=== PATIENT | female | born 1940 | race Caucasian/White ===

== ENCOUNTER → 2020-10-15 08:35 | Outpatient (CLI) | payer MEDICARE, SELFPAY ==
--- NOTE | ~2020-10-15 | US_ITS ---
EXAMINATION: US right upper quadrant EXAM DATE: 10/15/2020 08:59 INDICATION: Right upper quadrant pain. TECHNIQUE: Multiple grayscale and Doppler images of the abdomen right upper quadrant were obtained (b y a technologist who performed the scan) and subsequently reviewed. Comparison is made to prior exami nation from 03/28/2014. Correlation was made with CT abdomen 02/08/2018. FINDINGS: There is echogenic focus, calcification in the body of the pancreas, probably calcification which is identified on CT scan dated 02/08/2018. This calcification is along the margin of small cystic space, m easuring about 1 cm. This is not likely clinically significant finding. The liver has normal echogeni city and contour. There are no focal liver lesions identified. There is no evidence of intrahepati c biliary duct dilation. Portal venous flow was seen in the hepatopedal, normal direction and has no rmal Doppler waveform. No right-sided hydronephrosis. Common bile duct measures 4 mm, which is normal. The gallbladder wall is normal in thickness, with ex pected amount of distention. No sonographic evidence of pericholecystic fluid. There is no cholelit hiases. Technologist performing exam reports patient did not demonstrate sonographic Donald's sign. Please note that this sign is less reliable in patients who have received pain medication. IMPRESSION: 1. Unremarkable abdominal ultrasound exam. Reviewed, dictated and finalized at location D. H HAND
== END ==
PROVIDERS: PCP Nurse Practitioner Family; Visit Provider Student in an Organized Health Care Education/Training Program
DX: R10.11 Right upper quadrant pain (principal)
CPT/HCPCS: 76705

== ENCOUNTER 2020-10-21 12:51 | Emergency (ER) | payer MEDICARE, SELFPAY ==
--- NOTE | ~2020-10-21 | CT_ITS ---
EXAMINATION: CT abdomen pelvis wo con DATE: 10/21/2020 14:41 INDICATION: Right upper quadrant abdominal pain. Right flank pain. TECHNIQUE: Computed tomography (CT) of the abdomen and pelvis was performed without intravenous contr ast. Automated exposure control and iterative reconstruction technique were employed. The dose-length product was 840.26 mGy-cm. COMPARISON: CT abdomen 10/11/2017, abdomen ultrasound 10/15/2020 FINDINGS: The visualized portions of the lung bases demonstrate mild atelectasis. No pleural effusion . There is left atrial enlargement of the heart. There are calcifications of the aortic valve. No per icardial effusion. There is a small sliding hiatal hernia. The liver and gallbladder are normal. Calc ifications in the spleen are consistent with old granulomatous disease. There is a calcification in t he pancreas, consistent with chronic pancreatitis. The adrenal glands and right kidney are normal. Th ere are cysts in the left kidney including a chronic multiloculated cystic mass measuring 5.3 cm with focal areas of chronic wall calcification, likely benign. There is diverticulosis of the colon witho ut evidence of diverticulitis. The appendix is normal. There are no pathologically enlarged lymph nod es. There is no free intraperitoneal fluid. There is a left inguinal hernia containing fat. There is mild thoracic spondylosis and moderate lumbar spondylosis. IMPRESSION: 1. Small sliding hiatal hernia. 2. Left inguinal hernia containing fat. Reviewed, dictated and finalized at location A. TESTER
[2020-10-21 12:54] VITALS: BP 200/84; PULSE 61; RESP 17; TEMP 36.4; O2SAT 100
--- NOTE | 2020-10-21 13:06 | ECG_ITS ---
Measurements Intervals [place] Rate: 59 P: -10 NE: 173 QRS: 39 QRSD: 87 T: 39 QT: 393 QTc: 391 Interpretive Statements SINUS BRADYCARDIA BASELINE ARTIFACT- III BORDERLINE ECG Electronically Signed On 10-21-2020 13:22:39 SPORTS THERAPIST by Ozzie Carter D.O.
[2020-10-21 13:33] LABS: Basophils Percent Auto 0.1 % (0.2-1.2); Eosinophils Absolute Auto 0.1 K/mm3 (0-0.3); Eosinophils Percent Auto 1.1 % (0-4.4); Hematocrit 35.1 % (37.0-47.0); Hemoglobin 11.6 g/dL (12.0-15.0); Immature Granulocyte Absolute 0.04 K/mm3 (0.00-0.031); Immature Granulocyte Percent A 0.5 % (0-0.5); Lymphocytes Absolute Auto 1.13 K/mm3 (0.9-3.2); Lymphocytes Percent Auto 14.2 % (18.3-44.2); Mean Corpuscular Hemoglobin 29.7 pg (26-34); Mean Corpuscular Volume 89.8 fl (80-100); Monocytes Absolute Auto 0.4 K/mm3 (0.1-0.6); Monocytes Percent Auto 5.2 % (2.6-8.5); Neutrophils Absolute Auto 6.3 K/mm3 (1.3-6.7); Neutrophils Percent Auto 78.9 % (45.5-73.1); Platelet Count Result 183 k/mm3 (150-375); Red Blood Count 3.91 M/mm3 (4.2-5.4); Red Cell Distribution Width 14.1 % (11.5-14.5); White Blood Count 7.9 K/mm3 (4.5-10.0)
[2020-10-21 13:46] LABS: Alanine Aminotransferase 29 U/L (4-35); Alkaline Phosphatase 113 U/L (38-126); Anion Gap 4 mmol/L (8-16); Aspartate Amino Transferase 26 U/L (14-36); Bilirubin,Total 0.5 mg/dL (0.2-1.3); Blood Urea Nitrogen 25 mg/dL (7-17); Calcium 9.3 mg/dL (8.4-10.2); Carbon Dioxide 30 mmol/L (22-30); Chloride 105 mmol/L (98-107); Estimated Glomerular Filt Rate 33; Glucose 172 mg/dL (65-105); Lipase 24 U/L (23-300); Potassium 4.7 mmol/L (3.4-5.0); Sodium 139 mmol/L (137-145)
[2020-10-21 13:57] LABS: Troponin I < 0.012 ng/mL (0.000-0.034)
--- NOTE | 2020-10-21 14:04 | PC.NURSE ---
patient unable to give urine sample at this time, will attempt again later.
[2020-10-21 14:14] VITALS: BP 206/131; PULSE 57; RESP 21; O2SAT 99
--- NOTE | 2020-10-21 14:15 | ED.ABDPAIN ---
HPI - Abdominal Pain General Chief Complaint: Back Pain/Injury Stated Complaint: flank pain for 2 weeks Time Seen by Provider: 10/21/20 14:06 Source: patient Mode of arrival: ambulatory Limitations: no limitations History of Present Illness HPI narrative: Patient is an 80-year-old female complaining of right upper quadrant pain radiating to her right flank, 5 out of 10, sharp, started approximately 2 weeks ago. Patient states that she has seen her primary care physician for it had an ultrasound done a week ago and states that she does not know the results yet. Patient denies any chest pain, shortness of breath, nausea, vomiting, diarrhea, fever or chills. Related Data Allergies Allergy/AdvReac Type Severity Reaction Status Date / Time No Known Allergies Allergy Unverified 05/23/16 08:37 Review of Systems Review of Systems: All systems reviewed & are unremarkable except as noted in HPI and below Constitutional: Constitutional: Denies body ache(s), Denies chills, Denies excessive sweating, Denies fatigue, Denies fever(s), Denies headache(s), Denies lethargy, Denies malaise, Denies weakness and Denies weight loss Eyes: Eyes: Denies blurry vision, Denies change in vision and Denies loss of vision ENT: Denies dizziness, Denies ear discharge, Denies headache(s), Denies lip swelling, Denies epistaxis, Denies nasal congestion, Denies neck pain, Denies throat swelling and Denies tongue swelling Cardiovascular: Cardiovascular: Denies chest pain, Denies chest pain at rest, Denies chest pain with activity, Denies diaphoresis, Denies rapid heart rate, Denies edema, Denies irregular heart rhythm, Denies lightheadedness, Denies palpitations, Denies dyspnea and Denies dyspnea on exertion Respiratory: Respiratory: Denies chest congestion, Denies cough, Denies hemoptysis, Denies dyspnea and Denies dyspnea on exertion Gastrointestinal: Gastrointestinal: Denies melena, Denies hematochezia, Denies diarrhea, Denies nausea, Denies vomiting and Denies hematemesis Musculoskeletal: Musculoskeletal: Denies abnormal gait, Denies deformity, Denies joint swelling, Denies limited range of motion, Denies neck pain and Denies numbness Neurologic: Denies Abnormal speech present, Denies abnormal gait, Denies confusion, Denies dizziness, Denies headache(s), Denies focal weakness, Denies loss of vision, Denies numbness, Denies Other visual disturbances, Denies Sensory deficit (Neuro) and Denies weakness Psychiatric: Psychiatric: Denies confusion, Denies depression, Denies auditory hallucinations, Denies homicidal ideation and Denies suicidal ideation Endocrine: Endocrine: Denies cold intolerance, Denies excessive sweating, Denies fatigue, Denies heat intolerance and Denies palpitations Hematologic/Lymphatic: Hematologic/Lymphatic: Denies easy bleeding and Denies easy bruising Allergic/Immunologic: Allergic/Immunologic: Denies lip swelling, Denies throat swelling and Denies tongue swelling PMFSH Family History Family History Father Malignant neoplasm of prostate Mother Family history of lung cancer Family history of chronic obstructive pulmonary disease Social History Social History Smoking status: Never smoker Alcohol intake: never Gender identity (if verbalized by the patient): Female Exam Const: General: cooperative, healthy appearing, comfortable, no acute distress, well developed, alert and awake; No confusion Orientation/consciousness: oriented to person, oriented to place, oriented to time, patient oriented x3 and No confusion Limitations: no limitations HENMT: Head: normal to inspection, normocephalic and atraumatic Ears: hearing grossly normal bilaterally, TM normal on the right and TM normal on the left General nose exam: Normal external nose present, Normal nares present and No nasal discharge present Face and sinus: normal faci
[2020-10-21] MEDS: hydrALAZINE HCL 20 MG/ML VIAL 10 MG IV PUSH (14:17)
[2020-10-21 15:02] VITALS: BP 164/45; PULSE 62; RESP 17; O2SAT 99
[2020-10-21 15:23] LABS: Add Urine Microscopic? YES; Appearance Urine Clear (Clear); Bacteria Urine Trace /hpf; Bilirubin Urine Negative (Negative); Blood Urine Negative (Negative); Color Urine Straw (Yellow); Glucose Urine UA Negative (Negative); Ketones Urine Negative (Negative); Leukocyte Esterase Ur Trace LEU/UL (Negative); Mucus Urine Rare /lpf; Nitrate Urine Negative (Negative); Protein Urine Negative (Negative); Squamous Epithelial Cell Urine Rare /hpf (Few); Urobilinogen Urine Negative mg/dL (<2.0); WBC Urine 0-3 /hpf
[2020-10-21 16:18] VITALS: BP 177/50; PULSE 59; RESP 18; O2SAT 100
== END 2020-10-21 17:28 | disposition home or self-care (01) ==
PROVIDERS: Emergency Medicine Emergency Medical Services; Emergency Provider Emergency Medicine; PCP Nurse Practitioner Family
DX: R10.11 Right upper quadrant pain (principal)
CPT/HCPCS: 36415; 74176; 80053; 81001; 83690; 84484; 85025; 93005; 96374; 99284; J0360

== ENCOUNTER 2020-10-23 10:39 | Emergency (ER) | payer MEDICARE, SELFPAY ==
--- NOTE | ~2020-10-23 | CT_ITS ---
EXAMINATION: CTA chest PE protocol DATE: 10/23/2020 12:57 INDICATION: Right sided chest pain TECHNIQUE: Computed tomography angiography (CTA) of the chest was performed with 100 mL Omnipaque-350 intravenous contrast timed to evaluate the pulmonary arteries. Coronal maximum intensity projection 3D-reconstructions were created by the technologist. Automated exposure control and iterative reconst ruction technique were employed. Exam dose: 353.39 mGy-cm total exam DLP. COMPARISON: 05/23/2015 PA and lateral chest FINDINGS: There is diagnostic contrast enhancement of the pulmonary arteries and no evidence of pulmo nary embolism. There is contrast material under mining a prominent atherosclerotic plaque in the left lateral aspect of the distal descending thoracic aorta. Cardiomegaly. No pericardial or pleural effusion. No hilar or mediastinal mass lesion or lymphadenopathy. There is right thyroid goiter. Left thyroid lobectomy. Bilateral apical scarring. No pulmonary infiltrate or consolidation. Mild bilateral lower lobe depend ent atelectasis. Small sliding hiatal hernia. Diverticulum of the posterior gastric fundus. Diverticulosis of the splenic flexure of the colon. No suspicious osteolytic or osteoblastic lesions are noted. 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 Reviewed, dictated and finalized at location A. ISTRY ACCOUNT MANAGER
[2020-10-23 10:58] VITALS: BP 189/68; PULSE 62; RESP 18; TEMP 36.3; O2SAT 100
[2020-10-23 12:01] LABS: Basophils Percent Auto 0.1 % (0.2-1.2); Eosinophils Absolute Auto 0.1 K/mm3 (0-0.3); Eosinophils Percent Auto 1.2 % (0-4.4); Hematocrit 33.5 % (37.0-47.0); Hemoglobin 11.2 g/dL (12.0-15.0); Immature Granulocyte Absolute 0.02 K/mm3 (0.00-0.031); Immature Granulocyte Percent A 0.3 % (0-0.5); Lymphocytes Absolute Auto 0.98 K/mm3 (0.9-3.2); Lymphocytes Percent Auto 12.9 % (18.3-44.2); Mean Corpuscular HGB Conc 33.4 g/dl (32-36); Mean Corpuscular Hemoglobin 29.6 pg (26-34); Mean Corpuscular Volume 88.6 fl (80-100); Mean Platelet Volume 10.9 fl (7.4-10.4); Monocytes Absolute Auto 0.6 K/mm3 (0.1-0.6); Monocytes Percent Auto 7.6 % (2.6-8.5); Neutrophils Absolute Auto 5.9 K/mm3 (1.3-6.7); Neutrophils Percent Auto 77.9 % (45.5-73.1); Platelet Count Result 187 k/mm3 (150-375); Red Cell Distribution Width 13.9 % (11.5-14.5); White Blood Count 7.6 K/mm3 (4.5-10.0)
[2020-10-23 12:14] LABS: Alanine Aminotransferase 24 U/L (4-35); Albumin Level 3.8 g/dL (3.5-5.1); Alkaline Phosphatase 107 U/L (38-126); Anion Gap 4 mmol/L (8-16); Aspartate Amino Transferase 32 U/L (14-36); Bilirubin,Total 0.5 mg/dL (0.2-1.3); Blood Urea Nitrogen 33 mg/dL (7-17); Calcium 9.3 mg/dL (8.4-10.2); Carbon Dioxide 29 mmol/L (22-30); Chloride 107 mmol/L (98-107); Estimated CRCL calculation 28 ml/min; Estimated Glomerular Filt Rate 36; Glucose 115 mg/dL (65-105); Potassium 4.8 mmol/L (3.4-5.0); Prothrombin Time 13.9 Seconds (11.1-14.7); Sodium 140 mmol/L (137-145)
[2020-10-23 12:15] LABS: Partial Thromboplastin Time 34.3 SECONDS (22.3-36.8)
[2020-10-23 12:25] LABS: Troponin I < 0.012 ng/mL (0.000-0.034)
--- NOTE | 2020-10-23 12:33 | ED.GENADULT ---
HPI - General Adult General Chief complaint: Unspecified Stated complaint: PAIN ALL OVER BODY X2WKS Time Seen by Provider: 10/23/20 11:26 Source: patient Mode of arrival: ambulatory Limitations: no limitations History of Present Illness HPI narrative: This patient is an 80 year old female with history of hypertension, hyperlipidemia who presents for evaluation right chest and right abdominal pain. She reports having intermittent right flank pain for 2 weeks. Her pain is located right upper chest and it radiates to right upper abdomen and right flank and right upper back. Her pain may be worse with moving arm. She reports pain with worse with inspiration. She was evaluated in ER 2 days ago for this pain. She had an abdominal ultrasound and a CT abdomen and pelvis. There were no remarkable findings to explain her pain. Related Data Home Medications Medication Instructions Recorded Confirmed atorvastatin 40 mg PO HS 10/23/20 carvedilol 10/23/20 hydrochlorothiazide 25 mg PO DAILY 10/23/20 losartan 100 mg PO DAILY 10/23/20 Allergies Allergy/AdvReac Type Severity Reaction Status Date / Time No Known Allergies Allergy Verified 10/23/20 11:02 Review of Systems Review of Systems: Narrative: CONSTITUTIONAL: Denies fever, chills, or sweats. EYES: Denies visual changes, redness, or discharge. ENT: Denies rhinorrhea, congestion, sore throat, or otalgia. CARDIOVASCULAR: Denies palpitations, or edema. RESPIRATORY: Denies cough or dyspnea. GASTROINTESTINAL: Denies abdominal pain, nausea, vomiting, or diarrhea. GENITOURINARY: Denies dysuria or hematuria. SKIN: Denies rash or itching. MUSCULOSKELETAL: Denies back pain, joint pain, or myalgia. NEUROLOGIC: Denies headache, numbness, or weakness. PSYCHIATRIC: Denies anxiety or depression. All systems reviewed & are unremarkable except as noted in HPI and below PMFSH Past Medical History Medical History (Updated 10/23/20 @ 15:13 by Venita High MD) Hypertension Surgical History Surgical History (Updated 10/23/20 @ 15:07 by Venita High MD) H/O thyroidectomy Family History Family History Father Malignant neoplasm of prostate Mother Family history of lung cancer Family history of chronic obstructive pulmonary disease Social History Social History Smoking status: Never smoker Alcohol intake: never Gender identity (if verbalized by the patient): Female Exam Narrative: Exam Narrative: GENERAL: Well-appearing, well-nourished, and in no acute distress. HEAD: Normocephalic, atraumatic EYES: PERRLA and EOMI, conjunctiva clear without discharge THROAT:Mucous membranes moist, Oropharynx normal without erythema, exudate, peritonsillar swelling or fluctuance NECK: Supple, without lymphadenopathy or mass RESPIRATORY: No respiratory distress, Airway patent, Respirations non-labored, Clear to auscultation without rales, rhonchi or wheeze HEART: Regular rate and rhythm. No murmur heard. Normal peripheral pulses. ABDOMEN: Soft, nontender, nondistended, normal active bowel sounds. No masses. No rebound or guarding, No organomegaly. EXTREMITIES: No edema, normal strength with full range of motion. SKIN: Warm, dry, normal color without rash NEURO: Alert and oriented x3. CN 2-12 grossly intact. No focal deficits. PSYCH: Normal mood and affect. Course Reevaluation(s) Reevaluation #1: I Discussed with patient CT findings. I reviewed her work up from 2 days ago. She had an unremarkable CT abdomen and pelvis and abdominal US. Her EKG was normal other than sinus bradycardia. Her troponin was negative. She was given medication for her BP. She is aware she will be transferred to [facility]. Date: 10/23/20 Time: 14:30 Consultations Consultation #1: I spoke with Dr. Liu, [facility], about patient CT findings of undermining plaque in
[2020-10-23 12:43] VITALS: BP 189/52; PULSE 58; RESP 16; TEMP 36.8; O2SAT 100
[2020-10-23] MEDS: LACTATED RINGERS 1,000 ML 999 ML IV CONT (13:05)
[2020-10-23] MEDS: hydrALAZINE HCL 20 MG/ML VIAL IV PUSH (13:35)
[2020-10-23 14:06] VITALS: BP 160/50; PULSE 77; RESP 18; O2SAT 100
[2020-10-23] MEDS: LABETALOL HCL INJ 100 MG/20 ML VIAL 10 MG IV PUSH (14:11)
--- NOTE | 2020-10-23 14:27 | ECG_ITS ---
Measurements Intervals [place] Rate: 65 P: 18 ID: 164 QRS: 37 QRSD: 92 T: 28 QT: 403 QTc: 422 Interpretive Statements SINUS RHYTHM BASELINE ARTIFACT- I, III, AVR, AVL, AVF, V1-V6 NORMAL ECG Electronically Signed On 10-23-2020 17:05:53 ESCAPE WHEEL TOOTH CUTTER by Ozzie Carter D.O.
[2020-10-23] MEDS: ONDANSETRON INJ 4 MG/2 ML VIAL IV PUSH (14:46)
[2020-10-23] MEDS: MORPHINE SULFATE (*CRX) 2 MG/ML INJ IV PUSH (14:46)
[2020-10-23 14:57] VITALS: PULSE 72
--- NOTE | 2020-10-23 15:11 | PC.NURSE ---
[facility] declined transfer to [facility] accepted transfer to [place] JANICE 1520 Trip # [id number]
[2020-10-23 15:39] VITALS: BP 152/52; PULSE 74; RESP 20; O2SAT 100
== END 2020-10-23 15:46 | disposition short-term general hospital (02) ==
PROVIDERS: Emergency Provider General Practice; PCP Nurse Practitioner Family
DX: I70.0 Atherosclerosis of aorta (principal); I10 Essential (primary) hypertension; R07.9 Chest pain, unspecified; E78.5 Hyperlipidemia, unspecified; E04.9 Nontoxic goiter, unspecified; E89.0 Postprocedural hypothyroidism; I51.7 Cardiomegaly
CPT/HCPCS: 36415; 71275; 80053; 84484; 85025; 85610; 85730; 93005; 96361; 96374; 96375; 99285; J0360; J2270; J2405; J7120; Q9967

== ENCOUNTER → 2020-12-17 00:56 | Outpatient (CLI) | payer MEDICARE, SELFPAY ==
[2020-12-17 19:49] LABS: SARS-CoV-2 RNA PCR Negative
== END ==
PROVIDERS: PCP Nurse Practitioner Family; Visit Provider Internal Medicine Gastroenterology
DX: Z01.812 Encounter for preprocedural laboratory examination (principal); Z20.822 Contact with and (suspected) exposure to COVID-19
CPT/HCPCS: C9803; U0003; U0005

== ENCOUNTER 2020-12-20 01:08 | Day surgery (SDC) | payer MEDICARE, SELFPAY ==
[2020-12-09 14:36] VITALS: BMI 38.7
[2020-12-20 06:43] VITALS: BP 168/61; PULSE 63; RESP 18; TEMP 36.3; O2SAT 100
[2020-12-20] MEDS: LACTATED RINGERS 1,000 ML 150 ML IV CONT (07:00)
--- NOTE | 2020-12-20 07:18 | PM.HPGS ---
History of Present Illness History of Present Illness Consent: Risks, benefits, and alternatives have been discussed and questions answered. Patient agrees to proceed with procedure. Chief complaint: hx of colon polyps, neoplasm screening Narrative: Linda Vanegas is a 80 year old female referred for colon cancer screening. She has a history of polyps Review of Systems Review of Systems: All systems reviewed & are unremarkable except as noted in HPI and below PMFSH Past Medical History Medical History (Updated 12/20/20 @ 07:19 by Jossue Rodriguez MD) Hypertension Surgical History Surgical History H/O thyroidectomy Family History Family History Father Malignant neoplasm of prostate Mother Family history of lung cancer Family history of chronic obstructive pulmonary disease Social History Social History Smoking status: Never smoker Alcohol intake: never Living arrangements: alone Gender identity (if verbalized by the patient): Female Spiritual care concerns: No Meds Home Medications and Allergies Home Medications Medication Instructions Recorded Confirmed Type atorvastatin 40 mg PO HS 10/23/20 12/09/20 History carvedilol 12.5 mg PO BID 10/23/20 12/09/20 History losartan 100 mg PO DAILY 10/23/20 12/09/20 History spironolactone 25 mg PO DAILY 12/09/20 12/09/20 History Allergies Allergy/AdvReac Type Severity Reaction Status Date / Time No Known Allergies Allergy Verified 12/20/20 06:42 Vital Signs Vital Signs - 24 hr 12/20/20 06:43 Temperature 36.3 C L Pulse Rate 63 Respiratory Rate 18 Blood Pressure 168/61 H Pulse Oximetry 100 Exam Resp: Auscultation: clear to auscultation bilaterally Cardio: Rate: regular rate Rhythm: regular rhythm GI: GI Palp: Yes Soft to palpation and No Tenderness to palpation present (GI) Assessment and Plan Assessment and plan (1) Personal history of colonic polyps: Code(s): Z86.010 - Personal history of colonic polyps Status: Acute Assessment and Plan: Colonoscopy with possible biopsy or polypectomy or cautery or injection of substances.
--- NOTE | 2020-12-20 07:48 | WPDANESEPPF ---
Anes - Initial Pre Proc Eval Procedure: Operation Date: 12/20/20 08:00 Proposed Procedures p Screening Colonoscopy - Jossue Rodriguez MD Date/Time: 12/20/20 07:48 Surgeon: Jossue Rodriguez MD Pre Op Diagnosis: hx of colon polyps, neoplasm screening Patient Data Age: 80 Gender: F Height: 5 ft Weight: 89.2 kg Last Vital Signs Temp 97.4 F L 12/20/20 06:43 Pulse 63 12/20/20 06:43 Resp 18 12/20/20 06:43 BP 168/61 H 12/20/20 06:43 Pulse Ox 100 12/20/20 06:43 Allergies Allergy/AdvReac Type Severity Reaction Status Date / Time No Known Allergies Allergy Verified 12/20/20 06:42 Home Medications Medication Instructions Recorded Confirmed Type atorvastatin 40 mg PO HS 10/23/20 12/09/20 History carvedilol 12.5 mg PO BID 10/23/20 12/09/20 History losartan 100 mg PO DAILY 10/23/20 12/09/20 History spironolactone 25 mg PO DAILY 12/09/20 12/09/20 History Patient hx anesthesia problems: none Family hx anesthesia problems: none PMFSH Past Medical History Medical History (Updated 12/20/20 @ 07:41 by Girish Hawkins MD) Anxiety Atrial fibrillation Chronic kidney disease (CKD) stage G1/A2, glomerular filtration rate (GFR) equal to or greater than 90 mL/min/1.73 square meter and albuminuria creatinine ratio between 30-299 mg/g Hyperlipidemia Hypertension SAUMYA (obstructive sleep apnea) Surgical History Surgical History H/O thyroidectomy Family History Family History Father Malignant neoplasm of prostate Mother Family history of lung cancer Family history of chronic obstructive pulmonary disease Social History Social History Smoking status: Never smoker Alcohol intake: never Living arrangements: alone Gender identity (if verbalized by the patient): Female Spiritual care concerns: No Anes - Eval Final PreProcedure Day of Procedure 12/20/20 07:48 Patient weight: obese Heart: regular rate and rhythm Lungs: clear to auscultation Airway: Mallampati scale class II Neurological: alert and oriented Last oral intake: >/= 8 hours ASA classification: III Emergent: no Anesthetic plan: proceed Anesthesia type and monitoring: general GIVS and standard monitoring Informed Consent: The patient's anesthetic plan and its attendant risks and benefits were discussed with the patient/family/POA. Questions were solicited and answers provided to the satisfaction of the patient/family/POA.
[2020-12-20 08:23] VITALS: BP 105/56; PULSE 60; RESP 18; O2SAT 92
[2020-12-20 08:33] VITALS: BP 120/49; PULSE 60; RESP 18; O2SAT 97
[2020-12-20 08:42] VITALS: BP 139/58; PULSE 54; RESP 18; O2SAT 97
== END 2020-12-20 08:52 | disposition home or self-care (01) ==
PROVIDERS: PCP Emergency Medicine; Visit Provider Internal Medicine Gastroenterology
PROC: 0DJD8ZZ Inspection of Lower Intestinal Tract, Via Natural or Artificial Opening Endoscopic (ICD-10-PCS; CPT 45378; principal; 2020-12-20 08:00)
DX: Z12.11 Encounter for screening for malignant neoplasm of colon (principal); D12.3 Benign neoplasm of transverse colon; K57.30 Diverticulosis of large intestine without perforation or abscess without bleeding; Z86.010 Personal history of colon polyps; F41.9 Anxiety disorder, unspecified; I48.91 Unspecified atrial fibrillation; I12.9 Hypertensive chronic kidney disease with stage 1 through stage 4 chronic kidney disease, or unspecified chronic kidney disease; N18.1 Chronic kidney disease, stage 1; E78.5 Hyperlipidemia, unspecified; G47.33 Obstructive sleep apnea (adult) (pediatric); E66.9 Obesity, unspecified; Z68.38 Body mass index [BMI] 38.0-38.9, adult
CPT/HCPCS: 45385; 88305; C9803; J2704; J7120; U0003; U0005

== ENCOUNTER 2021-05-18 16:30 | Emergency (ER) | payer MEDICARE, SELFPAY ==
[2021-05-18] VITALS (7 sets, daily range): BP systolic 149–220; BP diastolic 46–83; PULSE 57–66; RESP 18–21; TEMP 36.6–36.8; O2SAT 97–100
[2021-05-18] MEDS: cloNIDine HCL 0.1 MG TABLET PO (20:44)
[2021-05-18 21:04] LABS: Basophils Percent Auto 0.2 % (0.2-1.2); Eosinophils Absolute Auto 0.5 K/mm3 (0-0.3); Eosinophils Percent Auto 4.2 % (0-4.4); Hematocrit 34.6 % (37.0-47.0); Hemoglobin 11.2 g/dL (12.0-15.0); Immature Granulocyte Absolute 0.04 K/mm3 (0.00-0.031); Immature Granulocyte Percent A 0.4 % (0-0.5); Lymphocytes Absolute Auto 1.92 K/mm3 (0.9-3.2); Mean Corpuscular HGB Conc 32.4 g/dl (32-36); Mean Corpuscular Hemoglobin 29.7 pg (26-34); Mean Corpuscular Volume 91.8 fl (80-100); Mean Platelet Volume 11.3 fl (7.4-10.4); Monocytes Absolute Auto 0.8 K/mm3 (0.1-0.6); Monocytes Percent Auto 7.5 % (2.6-8.5); Neutrophils Absolute Auto 7.4 K/mm3 (1.3-6.7); Neutrophils Percent Auto 69.7 % (45.5-73.1); Platelet Count Result 152 k/mm3 (150-375); Red Blood Count 3.77 M/mm3 (4.2-5.4); Red Cell Distribution Width 13.3 % (11.5-14.5); White Blood Count 10.7 K/mm3 (4.5-10.0)
[2021-05-18 21:14] LABS: Anion Gap 7 mmol/L (8-16); Blood Urea Nitrogen 29 mg/dL (7-17); Calcium 9.7 mg/dL (8.4-10.2); Carbon Dioxide 25 mmol/L (22-30); Chloride 106 mmol/L (98-107); Estimated CRCL calculation 30 ml/min; Estimated Glomerular Filt Rate 39; Glucose 119 mg/dL (65-110); Potassium 4.9 mmol/L (3.4-5.0); Sodium 138 mmol/L (137-145)
--- NOTE | 2021-05-18 21:41 | ED.GENADULT ---
HPI - General Adult General Chief complaint: Recheck/Abnormal Lab/Rx Stated complaint: Elevated BP Time Seen by Provider: 05/18/21 19:59 Source: patient Mode of arrival: ambulatory Limitations: no limitations History of Present Illness HPI narrative: 80-year-old with a history of hypertension, CKD here with complaints of elevated blood pressure since this afternoon. Patient states that she was feeling fine all day had a call from her primary doctor about her renal function. She was told her renal function got worse from 3 4 and soon after she checked her blood pressure and was found to be high. She states that she has been taking new medication as prescribed. She mentions that she went to urgent care where they did a EKG and was given aspirin and was later sent here to the ER for evaluation. Patient presently denies any headache, chest pain or visual problems. Related Data Home Medications Medication Instructions Recorded Confirmed atorvastatin 40 mg PO HS 10/23/20 12/09/20 carvedilol 12.5 mg PO BID 10/23/20 12/09/20 losartan 100 mg PO DAILY 10/23/20 12/09/20 spironolactone 25 mg PO DAILY 12/09/20 12/09/20 Allergies Allergy/AdvReac Type Severity Reaction Status Date / Time No Known Allergies Allergy Verified 05/18/21 20:03 Review of Systems Review of Systems: All systems reviewed & are unremarkable except as noted in HPI and below Constitutional: Constitutional: Reports no additional constitutional complaints Eyes: Eyes: Reports no additional eye complaints ENT: Reports system reviewed and no additional complaints, except as documented Cardiovascular: Cardiovascular: Reports as per HPI Respiratory: Respiratory: Reports no additional respiratory complaints Gastrointestinal: Gastrointestinal: Reports no additional gastrointestinal complaints Musculoskeletal: Musculoskeletal: Reports no additional musculoskeletal complaints Integumentary/Breasts: Skin/Breast: Reports system reviewed and no additional complaints, except as docu Neurologic: Reports system reviewed and no additional complaints, except as documented Psychiatric: Psychiatric: Reports no additional psychiatric complaints PMFSH Past Medical History Medical History Anxiety Atrial fibrillation Chronic kidney disease (CKD) stage G1/A2, glomerular filtration rate (GFR) equal to or greater than 90 mL/min/1.73 square meter and albuminuria creatinine ratio between 30-299 mg/g Hyperlipidemia Hypertension SAUMYA (obstructive sleep apnea) Surgical History Surgical History H/O thyroidectomy Family History Family History Father Malignant neoplasm of prostate Mother Family history of lung cancer Family history of chronic obstructive pulmonary disease Social History Social History Smoking status: Never smoker Alcohol intake: never Gender identity (if verbalized by the patient): Female Spiritual care concerns: No Exam Narrative: GENERAL: Well-appearing, well-nourished, and in no acute distress. HEAD: Normocephalic, atraumatic. EYES: PERRLA and EOMI. NECK: Supple. CHEST: Clear to auscultation. No respiratory distress. HEART: Regular rate and rhythm. No murmur heard. Normal peripheral pulses. ABDOMEN: Soft, nontender, nondistended, normal active bowel sounds. EXTREMITIES: Normal range of motion. No edema. SKIN: Warm, dry, no rash. NEURO: No focal deficits. Alert and oriented x3. PSYCH: Normal mood and affect. Course Course Emergency Course: Patient blood pressure was 164/46, after repeated evaluation had systolic was ranging between 160s to 180s. I have given 0.1 mg of clonidine which were brought down to 153/47. I have discussed her lab work with the patient. Advised her to continue home medication. Follow-up with her prim
== END 2021-05-18 22:17 | disposition home or self-care (01) ==
PROVIDERS: Emergency Provider Family Medicine; PCP Nurse Practitioner Family
DX: I12.9 Hypertensive chronic kidney disease with stage 1 through stage 4 chronic kidney disease, or unspecified chronic kidney disease (principal); N18.1 Chronic kidney disease, stage 1; I48.91 Unspecified atrial fibrillation; E78.5 Hyperlipidemia, unspecified; G47.33 Obstructive sleep apnea (adult) (pediatric); E89.0 Postprocedural hypothyroidism
CPT/HCPCS: 36415; 80048; 85025; 99283; A9270

== ENCOUNTER 2021-06-21 07:05 | Emergency (ER) | payer MEDICARE, SELFPAY ==
[2021-06-21] VITALS (21 sets, daily range): BP systolic 154–180; BP diastolic 51–122; PULSE 53–113; RESP 12–20; TEMP 36.9; O2SAT 20–99
--- NOTE | ~2021-06-21 | XR_ITS ---
EXAMINATION: XR chest 2V EXAM DATE: 06/21/2021 07:40 INDICATION: Palpitations, weakness. TECHNIQUE: Frontal and lateral projections of the chest obtained and reviewed. Comparison is made to prior examination from 05/23/2016. FINDINGS: Some prominent central pulmonary arteries, possible pulmonary arterial hypertension. Mild h yperinflation. The cardiomediastinal silhouette is prominent but magnified on this AP technique. No c onfluent consolidation, pneumothorax or pleural effusion suspected. There is an old left humeral neck fracture. There is no pneumothorax suspected. IMPRESSION: Cardiomegaly, possible pulmonary arterial hypertension. Reviewed, dictated and finalized at location A.
--- NOTE | 2021-06-21 07:25 | ECG_ITS ---
Measurements Intervals [place] Rate: 56 P: -11 MI: 161 QRS: 0 QRSD: 92 T: 39 QT: 420 QTc: 408 Interpretive Statements SINUS BRADYCARDIA BASELINE ARTIFACT- I, II, III, AVR, AVL, AVF, V1-V6 BORDERLINE ECG Electronically Signed On 06-21-2021 8:52:10 CDT by Ozzie Carter D.O.
[2021-06-21] MEDS: LOSARTAN POTASSIUM 100 MG TABLET PO (07:54)
[2021-06-21] MEDS: carvediloL 12.5 MG TABLET PO (07:54)
[2021-06-21 07:58] LABS: Basophils Percent Auto 0.3 % (0.2-1.2); Eosinophils Absolute Auto 0.2 K/mm3 (0-0.3); Eosinophils Percent Auto 3.4 % (0-4.4); Hematocrit 33.8 % (37.0-47.0); Hemoglobin 11.4 g/dL (12.0-15.0); Immature Granulocyte Absolute 0.02 K/mm3 (0.00-0.031); Immature Granulocyte Percent A 0.3 % (0-0.5); Lymphocytes Absolute Auto 1.16 K/mm3 (0.9-3.2); Lymphocytes Percent Auto 16.5 % (18.3-44.2); Mean Corpuscular HGB Conc 33.7 g/dl (32-36); Mean Corpuscular Hemoglobin 29.8 pg (26-34); Mean Corpuscular Volume 88.5 fl (80-100); Mean Platelet Volume 11.2 fl (7.4-10.4); Monocytes Absolute Auto 0.5 K/mm3 (0.1-0.6); Monocytes Percent Auto 7.4 % (2.6-8.5); Neutrophils Absolute Auto 5.1 K/mm3 (1.3-6.7); Neutrophils Percent Auto 72.1 % (45.5-73.1); Platelet Count Result 155 k/mm3 (150-375); Red Blood Count 3.82 M/mm3 (4.2-5.4); Red Cell Distribution Width 13.4 % (11.5-14.5)
--- NOTE | 2021-06-21 08:02 | ED.ARRPALP ---
HPI - Arrhythmia/Palpitations General Chief Complaint: Arrhythmia/Palpitations Stated Complaint: palpitations, htn Time Seen by Provider: 06/21/21 07:09 Source: patient, RN notes reviewed and old records reviewed Mode of arrival: EMS Limitations: no limitations History of Present Illness HPI narrative: This is an 80 year old female with history of anxiety, atrial fibrillation, hypertension and chronic renal disease who presents for evaluation palpitations. Around 7 pm last night, she developed palpitations that she describes as flip flopping around my heart . She reports she had difficulty sleeping but she finally fell asleep around 2 am this morning. When she woke up this morning, she continued to have the palpitations. She denies associated chest pain, sob, nausea, vomiting or dizziness. She also noticed that her blood pressure was high this morning so her daughter called 911. Patient has not taken any of her medications this morning which includes her blood pressure medication. She denies taking any anticoagulation for her history of afib. 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 Related Data Home Medications Medication Instructions Recorded Confirmed atorvastatin 40 mg PO HS 10/23/20 12/09/20 carvedilol 12.5 mg PO BID 10/23/20 12/09/20 losartan 100 mg PO DAILY 10/23/20 12/09/20 spironolactone 25 mg PO DAILY 12/09/20 12/09/20 Allergies Allergy/AdvReac Type Severity Reaction Status Date / Time No Known Allergies Allergy Verified 05/18/21 20:03 Review of Systems Review of Systems: All systems reviewed & are unremarkable except as noted in HPI and below PMFSH Past Medical History Medical History Anxiety Atrial fibrillation Chronic kidney disease (CKD) stage G1/A2, glomerular filtration rate (GFR) equal to or greater than 90 mL/min/1.73 square meter and albuminuria creatinine ratio between 30-299 mg/g Hyperlipidemia Hypertension SAUMYA (obstructive sleep apnea) Surgical History Surgical History H/O thyroidectomy Family History Family History Father Malignant neoplasm of prostate Mother Family history of lung cancer Family history of chronic obstructive pulmonary disease Social History Social History Smoking status: Never smoker Alcohol intake: never Gender identity (if verbalized by the patient): Female Spiritual care concerns: No Exam Const: General: no acute distress and alert Orientation/consciousness: patient oriented x3 Eyes: Pupils: Equal, round and reactive pupils present EOM: EOMs intact bilaterally Chest: Chest palpation & inspection: normal inspection of the chest Resp: Effort & Inspection: normal respiratory effort and no retractions Auscultation: clear to auscultation bilaterally Cardio: Rate: regular rate Rhythm: abnormal rhythm Heart sounds: no murmurs GI: GI Palp: Yes Soft to palpation, No Tenderness to palpation present (GI) and No Guarding due to palpation present (GI) Auscultation: normal bowel sounds Skin: General skin exam: normal color Rashes: no rashes Neuro: General: patient oriented x3, moves all extremities and CN's II-XI intact bilaterally Gait exam (Neuro): Normal gait present Extrem: General: normal to inspection and no pedal edema Psych: Mental Status: mental status grossly normal Affect: normal affect Course Reevaluation(s) Reevaluation #1: Patient states she feels better. She has HR 52 in sinus rhythm. I discussed recommendations for chronic anticoagulation and potential side effects of bleeding. She has not bleeding or history of bleeding. She is agreeable to start eliquis as I have discussed with cardiology. Date: 06/21/21 Time: 09:37 Consultations Consultation #1: I discussed case with Dr. Pulido of
[2021-06-21 08:10] LABS: INR 0.9; Prothrombin Time 12.4 Seconds (11.1-14.7)
[2021-06-21 08:11] LABS: Partial Thromboplastin Time 30.7 SECONDS (22.3-36.8)
[2021-06-21 08:12] LABS: Alanine Aminotransferase 51 U/L (4-35); Albumin Level 4.2 g/dL (3.5-5.1); Alkaline Phosphatase 137 U/L (38-126); Anion Gap 5 mmol/L (8-16); Aspartate Amino Transferase 38 U/L (14-36); Bilirubin,Total 0.4 mg/dL (0.2-1.3); Blood Urea Nitrogen 23 mg/dL (7-17); Carbon Dioxide 29 mmol/L (22-30); Chloride 107 mmol/L (98-107); Estimated CRCL calculation 34 ml/min; Estimated Glomerular Filt Rate 43; Glucose 118 mg/dL (65-110); Magnesium 2.1 mg/dL (1.6-2.3); Potassium 4.3 mmol/L (3.4-5.0); Sodium 141 mmol/L (137-145)
--- NOTE | 2021-06-21 08:23 | ECG_ITS ---
Measurements Intervals [place] Rate: 100 P: NC: 0 QRS: 4 QRSD: 92 T: 46 QT: 344 QTc: 445 Interpretive Statements ATRIAL FIBRILLATION WITH RAPID VENTRICULAR RESPONSE BASELINE ARTIFACT- I, II, III, AVR, AVL, AVF, V1, V3-V6 ABNORMAL ECG Electronically Signed On 06-21-2021 8:51:48 CDT by Ozzie Carter D.O.
[2021-06-21 08:24] LABS: Troponin I 0.032 ng/mL (0.000-0.034)
[2021-06-21 08:29] LABS: Add Urine Microscopic? YES; Appearance Urine Clear (Clear); Bilirubin Urine Negative (Negative); Blood Urine 2+ (Negative); Color Urine Straw (Yellow); Glucose Urine UA Negative (Negative); Ketones Urine Negative (Negative); Leukocyte Esterase Ur Negative LEU/UL (Negative); Mucus Urine Rare /lpf; Nitrate Urine Negative (Negative); Protein Urine Negative (Negative); Specific Grav Ur 1.006 (1.001-1.035); Squamous Epithelial Cell Urine Rare /hpf (Few); Urobilinogen Urine Negative mg/dL (<2.0); WBC Urine 0-3 /hpf
[2021-06-21 11:06] LABS: Free T4 Free Thyroxine Reflex 1.26 ng/dL (0.78-2.19)
[2021-06-21 12:00] LABS: Total Triiodothyronine (T3) 1.63 NG/ML (0.97-1.69)
== END 2021-06-21 10:01 | disposition home or self-care (01) ==
PROVIDERS: Emergency Provider General Practice; PCP Nurse Practitioner Family
DX: I48.91 Unspecified atrial fibrillation (principal); F41.9 Anxiety disorder, unspecified; R00.2 Palpitations; I12.9 Hypertensive chronic kidney disease with stage 1 through stage 4 chronic kidney disease, or unspecified chronic kidney disease; N18.1 Chronic kidney disease, stage 1; G47.30 Sleep apnea, unspecified
CPT/HCPCS: 36415; 71046; 80053; 81001; 83735; 84439; 84443; 84480; 84484; 85025; 85610; 85730; 93005; 99284; A9270

== ENCOUNTER 2021-07-01 14:58 | Emergency (ER) | payer MEDICARE, SELFPAY ==
--- NOTE | 2021-07-01 15:10 | PC.NURSE ---
in br to obtain ua
[2021-07-01 15:20] VITALS: BP 189/59; PULSE 59; RESP 18; TEMP 36.6; O2SAT 100
--- NOTE | 2021-07-01 16:41 | ED.GENADULT ---
HPI - General Adult General Chief complaint: Urogenital-Female Stated complaint: UTI Time Seen by Provider: 07/01/21 16:13 Source: patient Mode of arrival: ambulatory Limitations: no limitations History of Present Illness HPI narrative: 80 y/o female. PMHx HTN, HLD, A-Fib. Presents to [facility] this evening with acute complaints of urinary frequency, 'bladder pressure', and dysuria for the past 72 hours. Pt reports a concern for UTI, noting that she has had urinary tract infections historically, and her manifestations are similar. No fever, chills. No abdominal pain, flank pain, hematuria. No pelvic pain or vaginal discharge. She denies N/V. Pt is not a diabetic. She has not yet sought out medical evaluation until now, today. Client is without additional acute c/o illness upon PE. Related Data Home Medications Medication Instructions Recorded Confirmed atorvastatin 40 mg PO HS 10/23/20 12/09/20 carvedilol 12.5 mg PO BID 10/23/20 12/09/20 losartan 100 mg PO DAILY 10/23/20 12/09/20 spironolactone 25 mg PO DAILY 12/09/20 12/09/20 clonidine HCl BID 07/01/21 hydrochlorothiazide 07/01/21 Allergies Allergy/AdvReac Type Severity Reaction Status Date / Time No Known Allergies Allergy Verified 05/18/21 20:03 Review of Systems Review of Systems: CONSTITUTIONAL: Denies fever, chills, sweats. EYES: Denies visual changes, redness, discharge. ENT: Denies rhinorrhea, congestion, sore throat, otalgia. CARDIOVASCULAR: Denies chest pain, palpitations, edema. RESPIRATORY: Denies dyspnea, wheezing, cough GASTROINTESTINAL: Denies abdominal pain, nausea, vomiting, diarrhea. GENITOURINARY: Positive urinary frequency, dysuria. No hematuria, abnormal discharge SKIN: Denies rash or itching. MUSCULOSKELETAL: Denies acute back pain, joint pain, or myalgia. NEUROLOGIC: Denies numbness, or focal weakness. PSYCHIATRIC: Denies anxiety or depression. All systems reviewed & are unremarkable except as noted in HPI and below PMFSH Past Medical History Medical History Anxiety Atrial fibrillation Chronic kidney disease (CKD) stage G1/A2, glomerular filtration rate (GFR) equal to or greater than 90 mL/min/1.73 square meter and albuminuria creatinine ratio between 30-299 mg/g Hyperlipidemia Hypertension SAUMYA (obstructive sleep apnea) Surgical History Surgical History H/O thyroidectomy Family History Family History Father Malignant neoplasm of prostate Mother Family history of lung cancer Family history of chronic obstructive pulmonary disease Social History Social History Smoking status: Never smoker Alcohol intake: never Gender identity (if verbalized by the patient): Female Spiritual care concerns: No Exam Narrative: GENERAL: This is a well-nourished, well-developed adult, in no apparent distress. HEAD: normocephalic, atraumatic. EYES: PERRL. Sclera clear/white. EARS: External ears normal. NOSE: External nose normal. THROAT: Mucous membranes moist. NECK: Neck supple, non-tender without lymphadenopathy, masses or thyromegaly. CARDIOVASCULAR: Regular rate and rhythm without murmurs, gallops, or rubs. RESPIRATORY: Clear to auscultation. Breath sounds equal bilaterally. No wheezes, rales, or rhonchi. GASTROINTESTINAL: Abdomen soft, non-tender, nondistended. Bowel sounds are active. No guarding. No CVA tenderness. SKIN: warm, intact. NEURO: Alert, active, and age appropriate. No focal neurologic deficits. Course Course Emergency Course: -Urine Dipstick to be completed. Vital Signs Vital signs: Vital Signs Temperature 36.6 C 07/01/21 15:20 Pulse Rate 59 L 07/01/21 15:20 Respiratory Rate 18 07/01/21 15:20 Blood Pressure 189/59 H 07/01/21 15:20 Pulse Oxime
== END 2021-07-01 16:36 | disposition home or self-care (01) ==
PROVIDERS: Emergency Provider Nurse Practitioner Adult Health; PCP Nurse Practitioner Family
DX: N39.0 Urinary tract infection, site not specified (principal); I12.9 Hypertensive chronic kidney disease with stage 1 through stage 4 chronic kidney disease, or unspecified chronic kidney disease; N18.30 Chronic kidney disease, stage 3 unspecified; I48.91 Unspecified atrial fibrillation; E78.5 Hyperlipidemia, unspecified; G47.33 Obstructive sleep apnea (adult) (pediatric); E89.0 Postprocedural hypothyroidism
CPT/HCPCS: 81003; 87077; 87086; 87186; 99213; G0463

== ENCOUNTER 2021-07-16 23:41 | Emergency (ER) | payer MEDICARE, SELFPAY ==
--- NOTE | ~2021-07-16 | XR_ITS ---
EXAMINATION: XR chest 2V DATE: 07/17/2021 00:46 INDICATION: Acute hypertension TECHNIQUE: frontal and lateral views of the chest were obtained. COMPARISON: Chest radiograph dated 06/21/2021 FINDINGS: Unchanged mild streaky right basilar atelectasis/scarring. No other airspace opacities, pulmonary bryan ma, pleural effusion or pneumothorax. Cardiomegaly. Old healed proximal left humeral fracture. IMPRESSION: 1. Unchanged mild left basilar atelectasis/scarring. No new cardiopulmonary disease. Reviewed, dictated and finalized at location A. 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 Unchanged mild left basilar atelectasis/scarring. No new cardiopulmonary dis ease.
[2021-07-16 23:51] VITALS: BP 223/65; PULSE 74; RESP 18; TEMP 36.7; O2SAT 100
--- NOTE | 2021-07-16 23:54 | ECG_ITS ---
Measurements Intervals [place] Rate: 59 P: -17 VA: 173 QRS: 19 QRSD: 93 T: 34 QT: 410 QTc: 408 Interpretive Statements SINUS BRADYCARDIA LEFT VENTRICULAR HYPERTROPHY BASELINE ARTIFACT- I, II, III, AVR, AVL, AVF, V6 BORDERLINE ECG Electronically Signed On 07-17-2021 7:05:31 [employer] by Ozzie Carter D.O.
[2021-07-17] VITALS (9 sets, daily range): BP systolic 159–204; BP diastolic 48–71; PULSE 55–62; RESP 13–22; O2SAT 100
--- NOTE | 2021-07-17 00:11 | ED.RECABL ---
HPI - Recheck/Abnormal Lab/Rx General Chief Complaint: Recheck/Abnormal Lab/Rx Stated Complaint: high blood pressure Time Seen by Provider: 07/17/21 00:08 Source: RN notes reviewed History of Present Illness HPI narrative: Patient presents emergency department from home for hypertension. She states she has a history of hypertension and takes her blood pressure 3 times a day she states that this evening she was watching a very intense warm move the and believes that this caused her blood pressure to be up she states she started feeling a ringing in her ears and took her blood pressure was elevated came to the emergency department for further evaluation she is on blood pressure medication which has been taking and she states that she also took Catapres prior to arrival as she been told to take that for systolic blood pressures greater than 170 by her PCP. The patient denies having any headaches, vision changes, chest pain, shortness of breath, abdominal pain nausea vomiting or any other muscle strength 5 out of 5 bilateral upper and lower extremities Related Data Home Medications Medication Instructions Recorded Confirmed atorvastatin 40 mg PO HS 10/23/20 12/09/20 carvedilol 12.5 mg PO BID 10/23/20 12/09/20 losartan 100 mg PO DAILY 10/23/20 12/09/20 spironolactone 25 mg PO DAILY 12/09/20 12/09/20 clonidine HCl BID 07/01/21 hydrochlorothiazide 07/01/21 Allergies Allergy/AdvReac Type Severity Reaction Status Date / Time No Known Allergies Allergy Verified 05/18/21 20:03 Review of Systems Review of Systems: Gen.: Denies fevers or chills Eyes: Denies eye pain or visual change ENT: Denies congestion Respiratory: Denies shortness of breath or cough CV: Denies chest pain or palpitations GI: Denies abdominal pain nausea, emesis Musculoskeletal: Denies back pain or muscle pain Neuro: Denies numbness, tingling, weakness or focal weakness Skin: Denies rash Except as documented, all other systems reviewed and negative [facility] Past Medical History Medical History Anxiety Atrial fibrillation Chronic kidney disease (CKD) stage G1/A2, glomerular filtration rate (GFR) equal to or greater than 90 mL/min/1.73 square meter and albuminuria creatinine ratio between 30-299 mg/g Hyperlipidemia Hypertension SAUMYA (obstructive sleep apnea) Surgical History Surgical History H/O thyroidectomy Family History Family History Father Malignant neoplasm of prostate Mother Family history of lung cancer Family history of chronic obstructive pulmonary disease Social History Social History Smoking status: Never smoker Alcohol intake: never Gender identity (if verbalized by the patient): Female Spiritual care concerns: No Exam Narrative: APPEARANCE: No acute distress, nontoxic, resting in bed EYES: EOMI HEENT: Normocephalic, atraumatic, OMM RESPIRATORY: No respiratory distress Clear to auscultation bilaterally with no rhonchi wheezing or rales. CARDIOVASCULAR: Regular rate and rhythm without murmurs rubs or gallops. ABDOMINAL: Soft, nontender, nondistended, no rebound or guarding MUSCULOSKELETAl: Moves all extremities. No clubbing, cyanosis or edema. NEURO: Awake and alert. Following commands, speech normal, no focal deficits SKIN:: Warm, dry. No rashes lesions or abrasions PSYCHIATRIC: Normal affect/mood, Course Course Emergency Course: Discussed with patient results of workup and diagnosis. Discussed need for follow-up with primary care, proper use of medication, and reasons to return to the emergency department. Patient understands and agrees to current treatment plan Vital Signs Vital signs: Vital Signs Temperature 98.1 F 07/16/21 23:51 Pulse Rate 74 07/16/21 23:51 Respiratory Rate 18 07/16/21 23:
[2021-07-17 00:25] LABS: Basophils Percent Auto 0.4 % (0.2-1.2); Eosinophils Absolute Auto 0.2 K/mm3 (0-0.3); Eosinophils Percent Auto 2.8 % (0-4.4); Hematocrit 35.1 % (37.0-47.0); Hemoglobin 11.3 g/dL (12.0-15.0); Immature Granulocyte Absolute 0.02 K/mm3 (0.00-0.031); Immature Granulocyte Percent A 0.3 % (0-0.5); Lymphocytes Absolute Auto 1.42 K/mm3 (0.9-3.2); Lymphocytes Percent Auto 18.3 % (18.3-44.2); Mean Corpuscular HGB Conc 32.2 g/dl (32-36); Mean Corpuscular Hemoglobin 29.4 pg (26-34); Mean Corpuscular Volume 91.2 fl (80-100); Monocytes Absolute Auto 0.7 K/mm3 (0.1-0.6); Monocytes Percent Auto 9.6 % (2.6-8.5); Neutrophils Absolute Auto 5.3 K/mm3 (1.3-6.7); Neutrophils Percent Auto 68.6 % (45.5-73.1); Platelet Count Result 156 k/mm3 (150-375); Red Blood Count 3.85 M/mm3 (4.2-5.4); Red Cell Distribution Width 13.4 % (11.5-14.5); White Blood Count 7.7 K/mm3 (4.5-10.0)
[2021-07-17 00:42] LABS: INR 1.1; Prothrombin Time 13.8 Seconds (11.1-14.7)
[2021-07-17 00:43] LABS: Partial Thromboplastin Time 38.4 SECONDS (22.3-36.8)
[2021-07-17 00:48] LABS: Anion Gap 9 mmol/L (8-16); Blood Urea Nitrogen 32 mg/dL (7-17); Calcium 9.7 mg/dL (8.4-10.2); Carbon Dioxide 27 mmol/L (22-30); Chloride 102 mmol/L (98-107); Estimated CRCL calculation 30 ml/min; Estimated Glomerular Filt Rate 39; Glucose 125 mg/dL (65-110); Potassium 4.6 mmol/L (3.4-5.0); Sodium 138 mmol/L (137-145)
[2021-07-17 01:01] LABS: Troponin I < 0.012 ng/mL (0.000-0.034)
[2021-07-17 01:11] LABS: Add Urine Microscopic? YES; Appearance Urine Clear (Clear); Bilirubin Urine Negative (Negative); Blood Urine 1+ (Negative); Color Urine Colorless (Yellow); Glucose Urine UA Negative (Negative); Ketones Urine Negative (Negative); Leukocyte Esterase Ur Negative LEU/UL (Negative); Nitrate Urine Negative (Negative); Protein Urine Negative (Negative); Specific Grav Ur 1.005 (1.001-1.035); Urobilinogen Urine Negative mg/dL (<2.0)
[2021-07-17 01:34] LABS: Troponin I < 0.012 ng/mL (0.000-0.034)
== END 2021-07-17 01:30 | disposition home or self-care (01) ==
PROVIDERS: Emergency Provider Emergency Medicine; PCP Nurse Practitioner Family
DX: I12.9 Hypertensive chronic kidney disease with stage 1 through stage 4 chronic kidney disease, or unspecified chronic kidney disease (principal); N18.1 Chronic kidney disease, stage 1; I48.91 Unspecified atrial fibrillation; E78.5 Hyperlipidemia, unspecified; G47.33 Obstructive sleep apnea (adult) (pediatric); E89.0 Postprocedural hypothyroidism; Z79.01 Long term (current) use of anticoagulants; R00.1 Bradycardia, unspecified; I51.7 Cardiomegaly
CPT/HCPCS: 36415; 71046; 80048; 81001; 84484; 85025; 85610; 85730; 93005; 99284

== ENCOUNTER 2022-02-17 03:10 | Emergency (ER) | payer MEDICARE, SELFPAY ==
--- NOTE | ~2022-02-17 | CT_ITS ---
EXAMINATION: CT brain wo con DATE: 02/17/2022 04:15 INDICATION: Head injury. TECHNIQUE: Computed tomography (CT) of the head was performed without intravenous contrast. The mA wa s adjusted according to patient size. Iterative reconstruction technique was employed. The dose-lengt h product was 605.33 mGy-cm. COMPARISON: Head CT 05/23/2016 FINDINGS: There are scattered areas of low attenuation in the cerebral white matter. There is no intr acranial hemorrhage, acute infarction, or abnormal intracranial mass lesion. The ventricles are nathan l in size. There are likely changes of ocular lens replacement surgeries. There is mild mucosal thick ening in the paranasal sinuses. There are small bilateral mastoid effusions. IMPRESSION: 1. Worsened moderate nonspecific cerebral white matter disease, which likely represents chronic small vessel ischemic disease. Reviewed, dictated and finalized at location A. IMPRESSION: 1. Worsened moderate nonspecific cerebral white matter disease, which likely re presents chronic small vessel ischemic disease.
[2022-02-17 03:10] VITALS: BP 205/57; PULSE 70; RESP 18; TEMP 36.8; O2SAT 99
--- NOTE | 2022-02-17 03:38 | ED.HEATRA ---
HPI - Head Injury General Chief complaint: Head Injury Stated complaint: hit head on blood thinner Time Seen by Provider: 02/17/22 03:23 Source: patient History of Present Illness HPI Narrative: Patient presents with head injury. Patient reports she rolled off the bed and struck her head on the nightstand. She fell to the ground and assisted her self and since she is on a blood thinner she came to the ER for further evaluation. Inspiration and sleeping closer to the bed using her CPAP machine. Reports the fall woke her up. She denies any loss of consciousness denies any focal numbness or weakness denies any changes in vision. Shortness of mild knot on the left side of her head. For she would not of come to the ER for evaluation but she was counseled by her PCM regarding blood thinners and that every time she hits her head she needs to be evaluated in the emergency room. She denies any nausea or vomiting Related Data Home Medications Medication Instructions Recorded Confirmed atorvastatin 40 mg tablet 40 mg PO HS 10/23/20 11/09/21 carvedilol 12.5 mg tablet 12.5 mg PO BID 10/23/20 11/09/21 spironolactone 25 mg tablet 25 mg PO DAILY 12/09/20 11/09/21 clonidine HCl 0.1 mg tablet BID 07/01/21 11/09/21 ascorbic acid (vitamin C) 100 mg 100 mg PO DAILY 11/09/21 11/09/21 tablet cholecalciferol (vitamin D3) 50 50 mcg PO DAILY 11/09/21 11/09/21 mcg (2,000 unit) capsule coenzyme Q10 100 mg capsule 100 mg PO DAILY 11/09/21 11/09/21 krill oil 1,000 mg-om3 130 mg-dha cap PO 11/09/21 11/09/21 40 mg-epa 80 [id number] cap (Krill Oil ([place] 3 and 6)) Allergies Allergy/AdvReac Type Severity Reaction Status Date / Time No Known Allergies Allergy Verified 02/17/22 03:12 Review of Systems Review of Systems: CONSTITUTIONAL: Denies fever, chills, or sweats. EYES: Denies visual changes, redness, or discharge. ENT: Denies rhinorrhea, congestion, sore throat, or otalgia. CARDIOVASCULAR: Denies chest pain, palpitations, or edema. RESPIRATORY: Denies cough or dyspnea. GASTROINTESTINAL: Denies abdominal pain, nausea, vomiting, or diarrhea. GENITOURINARY: Denies dysuria or hematuria. SKIN: Denies rash or itching. MUSCULOSKELETAL: Denies back pain, joint pain, or myalgia. NEUROLOGIC: Denies headache, numbness, dizziness, or weakness. PSYCHIATRIC: Denies anxiety or depression. All systems reviewed & are unremarkable except as noted in HPI and below PMFSH Past Medical History Medical History Anxiety Atrial fibrillation Chronic kidney disease (CKD) stage G1/A2, glomerular filtration rate (GFR) equal to or greater than 90 mL/min/1.73 square meter and albuminuria creatinine ratio between 30-299 mg/g Goiter Hyperlipidemia Hypertension SAUMYA (obstructive sleep apnea) Osteopenia Vaginal delivery x3 Surgical History Surgical History H/O thyroidectomy 1989, left side Family History Family History Father Malignant neoplasm of prostate Mother Family history of lung cancer Family history of chronic obstructive pulmonary disease Social History Social History Smoking status: Never smoker Alcohol intake: never Substance use: never Gender identity (if verbalized by the patient): Female Spiritual care concerns: No Agree to blood products: Yes Exam Narrative: GENERAL: Well-appearing, well-nourished, and in no acute distress. HEAD: Normocephalic, small hematoma on the left occiput EYES: PERRLA and EOMI. ENT: Nares clear, no rhinorrhea or epistaxis. Mucous membranes moist. NECK: Supple. No masses. No JVD EXTREMITIES: Normal range of motion. No edema. SKIN: Warm, dry, no rash. NEURO: Cranial nerves II through XII are intact patient has 5 out of 5 strength in all extremities sensation intact light t
--- NOTE | 2022-02-17 04:09 | PC.NURSE ---
Pt to CT via stretcher
[2022-02-17 04:55] VITALS: BP 155/82; PULSE 61; RESP 16; O2SAT 97
[2022-02-17] MEDS: ACETAMINOPHEN 500 MG TABLET 1000 MG PO (05:31)
[2022-02-17 06:41] VITALS: BP 167/49; PULSE 54; RESP 16; O2SAT 96
== END 2022-02-17 07:00 | disposition home or self-care (01) ==
PROVIDERS: Emergency Provider Emergency Medicine; PCP Nurse Practitioner Family
DX: S00.03XA Contusion of scalp, initial encounter (principal); I48.91 Unspecified atrial fibrillation; I12.9 Hypertensive chronic kidney disease with stage 1 through stage 4 chronic kidney disease, or unspecified chronic kidney disease; N18.30 Chronic kidney disease, stage 3 unspecified; E78.5 Hyperlipidemia, unspecified; E89.0 Postprocedural hypothyroidism; G47.33 Obstructive sleep apnea (adult) (pediatric); M85.80 Other specified disorders of bone density and structure, unspecified site; Z79.01 Long term (current) use of anticoagulants; R90.82 White matter disease, unspecified; W06.XXXA Fall from bed, initial encounter
CPT/HCPCS: 70450; 99284; A9270

== ENCOUNTER 2022-02-20 13:40 | Emergency (ER) | payer MEDICARE, SELFPAY ==
[2022-02-20 13:43] VITALS: BP 157/72; PULSE 72; RESP 20; TEMP 36.6; O2SAT 97
--- NOTE | 2022-02-20 13:49 | PC.NURSE ---
pt. refusing blood draw or further tests until she sees a pcp.
[2022-02-20 14:07] VITALS: BP 162/60
--- NOTE | 2022-02-20 14:38 | ECG_ITS ---
Measurements Intervals [place] Rate: 61 P: -18 SD: 187 QRS: 30 QRSD: 87 T: 30 QT: 416 QTc: 420 Interpretive Statements BASELINE MOTION ARTIFACT SINUS RHYTHM COMPARED TO ECG 07/16/2021 23:58:48 NO SIGNIFICANT CHANGE Electronically Signed On 02-20-2022 16:33:50 CDT by Juan Armstrong M.D.
[2022-02-20 15:02] LABS: Basophils Percent Auto 0.2 % (0.2-1.2); Eosinophils Absolute Auto 0.1 K/mm3 (0-0.3); Eosinophils Percent Auto 2.2 % (0-4.4); Hematocrit 31.1 % (37.0-47.0); Immature Granulocyte Absolute 0.02 K/mm3 (0.00-0.031); Immature Granulocyte Percent A 0.3 % (0-0.5); Immature Platelet Fraction Pct 8.4 % (0.9-11.2); Lymphocytes Absolute Auto 1.04 K/mm3 (0.9-3.2); Lymphocytes Percent Auto 16.6 % (18.3-44.2); Mean Corpuscular HGB Conc 32.2 g/dl (32-36); Mean Corpuscular Hemoglobin 28.9 pg (26-34); Mean Corpuscular Volume 89.9 fl (80-100); Mean Platelet Volume 11.5 fl (7.4-10.4); Monocytes Absolute Auto 0.5 K/mm3 (0.1-0.6); Monocytes Percent Auto 8.6 % (2.6-8.5); Neutrophils Absolute Auto 4.5 K/mm3 (1.3-6.7); Neutrophils Percent Auto 72.1 % (45.5-73.1); Platelet Count Result 139 k/mm3 (150-375); Red Blood Count 3.46 M/mm3 (4.2-5.4); Red Cell Distribution Width 13.6 % (11.5-14.5); White Blood Count 6.3 K/mm3 (4.5-10.0)
[2022-02-20 15:10] LABS: Alanine Aminotransferase 22 U/L (6-35); Albumin Level 3.9 g/dL (3.5-5.1); Alkaline Phosphatase 110 U/L (38-126); Anion Gap 5 mmol/L (8-16); Aspartate Amino Transferase 30 U/L (14-36); Bilirubin,Total 0.4 mg/dL (0.2-1.3); Blood Urea Nitrogen 24 mg/dL (7-17); Calcium 8.6 mg/dL (8.4-10.2); Carbon Dioxide 27 mmol/L (22-30); Chloride 107 mmol/L (98-107); Estimated Glomerular Filt Rate 43; Glucose 99 mg/dL (65-110); Potassium 4.7 mmol/L (3.4-5.0); Sodium 139 mmol/L (137-145)
[2022-02-20 15:11] VITALS: BP 195/67; PULSE 60; RESP 22; O2SAT 97
[2022-02-20 15:23] LABS: INR 1.3; Prothrombin Time 15.8 Seconds (11.1-14.7)
--- NOTE | 2022-02-20 15:23 | ED.RECABL ---
HPI - Recheck/Abnormal Lab/Rx General Chief Complaint: Recheck/Abnormal Lab/Rx Stated Complaint: HTN Time Seen by Provider: 02/20/22 13:55 Source: patient and EMS Mode of arrival: EMS Limitations: no limitations History of Present Illness HPI narrative: This is an 81 year old female who presents for evaluation of elevated blood pressure. Patient states he checks his blood pressure twice a day. He checked it at 2 am this morning and it was over 170s so he took a dose of clonidine 0.1 mg. She checked it again prior to coming and it was 170s/140s. She took another other dose of clonidine 0.1 mg. She denies having headache, blurred vision, dizziness, chest pain or shortness of breath. She states she takes clonidine 12.5 mg twice a day and losartan once day. She has been told to take clonidine as needed with systolic blood pressure over 170s. She states she takes clonidine almost every day. Patient states her blood pressure has been change multiple times . She states a kidney specialist took her off spironolactone. Related Data Home Medications Medication Instructions Recorded Confirmed atorvastatin 40 mg tablet 40 mg PO HS 10/23/20 11/09/21 carvedilol 12.5 mg tablet 12.5 mg PO BID 10/23/20 11/09/21 spironolactone 25 mg tablet 25 mg PO DAILY 12/09/20 11/09/21 clonidine HCl 0.1 mg tablet BID 07/01/21 11/09/21 ascorbic acid (vitamin C) 100 mg 100 mg PO DAILY 11/09/21 11/09/21 tablet cholecalciferol (vitamin D3) 50 50 mcg PO DAILY 11/09/21 11/09/21 mcg (2,000 unit) capsule coenzyme Q10 100 mg capsule 100 mg PO DAILY 11/09/21 11/09/21 krill oil 1,000 mg-om3 130 mg-dha cap PO 11/09/21 11/09/21 40 mg-epa 80 [id number] cap (Krill Oil ([place] 3 and 6)) Allergies Allergy/AdvReac Type Severity Reaction Status Date / Time No Known Allergies Allergy Verified 02/17/22 03:12 Review of Systems Review of Systems: All systems reviewed & are unremarkable except as noted in HPI and below Constitutional: Constitutional: Denies chills, Denies fatigue and Denies fever(s) Eyes: Eyes: Denies change in vision and Denies photophobia ENT: Denies vertigo and Denies dizziness Comments: tinnitus Cardiovascular: Cardiovascular: Denies chest pain and Denies rapid heart rate Respiratory: Respiratory: Denies chest congestion, Denies cough and Denies dyspnea Gastrointestinal: Gastrointestinal: Denies abdominal pain, Denies bloating, Denies nausea and Denies vomiting Neurologic: Denies headache(s), Denies focal weakness and Denies numbness Psychiatric: Psychiatric: Reports anxiety PMFSH Past Medical History Medical History Anxiety Atrial fibrillation Chronic kidney disease (CKD) stage G1/A2, glomerular filtration rate (GFR) equal to or greater than 90 mL/min/1.73 square meter and albuminuria creatinine ratio between 30-299 mg/g Goiter Hyperlipidemia Hypertension SAUMYA (obstructive sleep apnea) Osteopenia Vaginal delivery x3 Surgical History Surgical History H/O thyroidectomy 1989, left side Family History Family History Father Malignant neoplasm of prostate Mother Family history of lung cancer Family history of chronic obstructive pulmonary disease Social History Social History Smoking status: Never smoker Alcohol intake: never Substance use: never Gender identity (if verbalized by the patient): Female Spiritual care concerns: No Agree to blood products: Yes Exam Const: General: alert Nutritional Appearance: well nourished Orientation/consciousness: patient oriented x3 Limitations: no limitations HENMT: Head: normal to inspection Face and sinus: normal facial exam Throat: posterior oropharynx normal Eyes: Pupils: Equal, round and reactive pupils prese
[2022-02-20 15:24] LABS: Partial Thromboplastin Time 41.9 SECONDS (22.3-36.8)
[2022-02-20] MEDS: NIFEdipine 30 MG TAB.ER.24 PO (16:49)
[2022-02-20 17:31] VITALS: BP 186/62; PULSE 58; RESP 16; O2SAT 99
== END 2022-02-20 17:33 | disposition home or self-care (01) ==
PROVIDERS: Emergency Provider General Practice; PCP Nurse Practitioner Family
DX: I10 Essential (primary) hypertension (principal); I48.91 Unspecified atrial fibrillation; I12.9 Hypertensive chronic kidney disease with stage 1 through stage 4 chronic kidney disease, or unspecified chronic kidney disease; N18.9 Chronic kidney disease, unspecified; E78.5 Hyperlipidemia, unspecified
CPT/HCPCS: 36415; 80053; 85025; 85055; 85610; 85730; 93005; 99283; A9270

== ENCOUNTER 2022-04-24 22:15 | Emergency (ER) | payer MEDICARE, SELFPAY ==
[2022-04-24 22:30] VITALS: BP 122/92; PULSE 59; RESP 20; TEMP 36.5; O2SAT 100
[2022-04-24 23:16] VITALS: BP 205/46; PULSE 64; RESP 18; O2SAT 100
[2022-04-24] MEDS: LABETALOL HCL INJ 100 MG/20 ML VIAL 20 MG IV PUSH (23:53)
[2022-04-24 23:54] VITALS: BP 188/47; PULSE 59; RESP 20; O2SAT 100
--- NOTE | 2022-04-24 23:56 | ED.GENADULT ---
HPI - General Adult General Chief complaint: Recheck/Abnormal Lab/Rx Stated complaint: High Blood Pressure Time Seen by Provider: 04/24/22 23:31 History of Present Illness HPI narrative: 81 female presents emergency room secondary to hypertension. She got longstanding history of hypertension. She takes 2 blood pressure medications on a regular basis then she has Catapres that she takes as needed. She took her blood pressure this evening about 6 PM systolic pressure was noted to be over 200. She took her Catapres and then waited and checked it again it was even higher so she got concerned and came to emergency room. Denies any chest pain or shortness of breath. 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 She has a history of atrial fibrillation in the past and anticoagulated as a result of this. They talk about putting in a watchman. She is never had any ischemic cardiac disease. Related Data Home Medications Medication Instructions Recorded Confirmed atorvastatin 40 mg tablet 40 mg PO HS 10/23/20 11/09/21 carvedilol 12.5 mg tablet 12.5 mg PO BID 10/23/20 11/09/21 spironolactone 25 mg tablet 25 mg PO DAILY 12/09/20 11/09/21 clonidine HCl 0.1 mg tablet BID 07/01/21 11/09/21 ascorbic acid (vitamin C) 100 mg 100 mg PO DAILY 11/09/21 11/09/21 tablet cholecalciferol (vitamin D3) 50 50 mcg PO DAILY 11/09/21 11/09/21 mcg (2,000 unit) capsule coenzyme Q10 100 mg capsule 100 mg PO DAILY 11/09/21 11/09/21 krill oil 1,000 mg-om3 130 mg-dha cap PO 11/09/21 11/09/21 40 mg-epa 80 [id number] cap (Krill Oil ([place] 3 and 6)) Allergies Allergy/AdvReac Type Severity Reaction Status Date / Time No Known Allergies Allergy Verified 04/24/22 22:29 Review of Systems Review of Systems: CONSTITUTIONAL: Denies fever, chills, or sweats. EYES: Denies visual changes, redness, or discharge. ENT: Denies rhinorrhea, congestion, sore throat, or otalgia. CARDIOVASCULAR: Denies chest pain, palpitations, or edema. RESPIRATORY: Denies cough or dyspnea. GASTROINTESTINAL: Denies abdominal pain, nausea, vomiting, or diarrhea. GENITOURINARY: Denies dysuria or hematuria. SKIN: Denies rash or itching. MUSCULOSKELETAL: Denies back pain, joint pain, or myalgia. NEUROLOGIC: Denies headache, numbness, or weakness. PSYCHIATRIC: Denies anxiety or depression. [facility] Past Medical History Medical History Anxiety Atrial fibrillation Chronic kidney disease (CKD) stage G1/A2, glomerular filtration rate (GFR) equal to or greater than 90 mL/min/1.73 square meter and albuminuria creatinine ratio between 30-299 mg/g Goiter Hyperlipidemia Hypertension SAUMYA (obstructive sleep apnea) Osteopenia Vaginal delivery x3 Surgical History Surgical History H/O thyroidectomy 1989, left side Family History Family History Father Malignant neoplasm of prostate Mother Family history of lung cancer Family history of chronic obstructive pulmonary disease Social History Social History Smoking status: Never smoker Alcohol intake: never Substance use: never Gender identity (if verbalized by the patient): Female Spiritual care concerns: No Agree to blood products: Yes Exam Narrative: APPEARANCE: Well appearing, no pain or distress, well-nourished. Head Normocephalic and atraumatic. EYES: PERRLA/EOMI, conjunctivae clear. NOSE: Normal with no drainage EARS:TMS clear with Carter, with good light reflex. THROAT: Pharynx clear, no exudate. NECK: Supple. No adenopathy, no masses. RESPIRATORY: Airway patent, respirations nonlabored. Clear to auscultation bilaterally, no rales, rhonchi, wheezing. CARDIOVASCULAR: Regular rate and rhythm without murmurs, rubs, o
[2022-04-25] LABS: Anion Gap 7 mmol/L (8-16); Blood Urea Nitrogen 30 mg/dL (7-17); Calcium 9.3 mg/dL (8.4-10.2); Carbon Dioxide 29 mmol/L (22-30); Chloride 101 mmol/L (98-107); Estimated CRCL calculation 32 ml/min; Estimated Glomerular Filt Rate 43; Glucose 122 mg/dL (65-110); Potassium 4.4 mmol/L (3.4-5.0); Sodium 137 mmol/L (137-145)
[2022-04-25 01:00] VITALS: BP 198/55; PULSE 57; RESP 20; O2SAT 100
[2022-04-25 01:37] VITALS: BP 216/57; PULSE 58; RESP 21; O2SAT 99
[2022-04-25] MEDS: LABETALOL HCL INJ 100 MG/20 ML VIAL 40 MG IV PUSH (01:40)
[2022-04-25 02:09] VITALS: BP 202/44
[2022-04-25 02:22] VITALS: BP 175/58; PULSE 59; RESP 18; O2SAT 99
[2022-04-25 02:33] VITALS: BP 175/58; PULSE 62; RESP 18; O2SAT 99
== END 2022-04-25 02:33 | disposition home or self-care (01) ==
PROVIDERS: Emergency Provider Emergency Medicine; PCP Nurse Practitioner Family
DX: I12.9 Hypertensive chronic kidney disease with stage 1 through stage 4 chronic kidney disease, or unspecified chronic kidney disease (principal); N18.9 Chronic kidney disease, unspecified; F41.9 Anxiety disorder, unspecified; I48.91 Unspecified atrial fibrillation; G47.30 Sleep apnea, unspecified
CPT/HCPCS: 36415; 80048; 96374; 96376; 99284

== ENCOUNTER 2022-05-17 08:20 | Emergency (ER) | payer MEDICARE, SELFPAY ==
[2022-05-17] VITALS (28 sets, daily range): BP systolic 124–206; BP diastolic 38–130; PULSE 48–63; RESP 14–21; TEMP 36.4; O2SAT 54–100
--- NOTE | ~2022-05-17 | CT_ITS ---
EXAMINATION: CT brain wo con INDICATION: Headache COMPARISON: 02/17/2022 TECHNIQUE: Standard unenhanced head CT. The dose-length product (DLP) was 605.33 mGy-cm. The mA was a djusted according to patient size. Iterative reconstruction technique was employed. FINDINGS: There is no acute intraparenchymal hemorrhage. No evidence of mass lesion. No evidence of a cute infarction. There is mild periventricular and subcortical hypodensity probably related to small vessel ischemic disease. There is mild prominence of the sulci and ventricles related to cerebral atr ophy. Intracranial calcified cerebral atherosclerosis is noted. There are no extra-axial collections. There is no mass effect or midline shift. The orbits and soft tissues are unremarkable. There is mil d mucosal thickening of the paranasal sinuses. There is a small right mastoid effusion. IMPRESSION: 1. No acute intracranial abnormality. 2. Age related findings. 3. Mild sinus disease and small right mastoid effusion. Reviewed, dictated and finalized at location B.
--- NOTE | 2022-05-17 09:51 | ED.GENADULT ---
HPI - General Adult General Chief complaint: Recheck/Abnormal Lab/Rx Stated complaint: high bp Time Seen by Provider: 05/17/22 08:22 History of Present Illness HPI narrative: 81-year-old female with history of hypertension presenting to the emergency department for evaluation of multiple complaints including tinnitus, hypertension and diarrhea. Patient states that at night when he is going to bed he had blood pressure of 193/88. Patient was instructed to take 0.1 of clonidine if her blood pressure was greater than 170 systolic. Patient did take medications as directed. Patient only complaint at that time was having some ear ringing. He denies any associated chest pain or shortness of breath. Patient does describe intermittent dizziness when she attempts to stand up. Patient states when she is at rest she does not have any dizziness. Patient denies any current dizziness. Patient was recently started on hydrochlorothiazide by her sliver cutter. Patient states she does have pending follow-up with her urologist for increased urination but this is not until June 02. Related Data Home Medications Medication Instructions Recorded Confirmed atorvastatin 40 mg tablet 40 mg PO HS 10/23/20 11/09/21 carvedilol 12.5 mg tablet 12.5 mg PO BID 10/23/20 11/09/21 spironolactone 25 mg tablet 25 mg PO DAILY 12/09/20 11/09/21 clonidine HCl 0.1 mg tablet BID 07/01/21 11/09/21 ascorbic acid (vitamin C) 100 mg 100 mg PO DAILY 11/09/21 11/09/21 tablet cholecalciferol (vitamin D3) 50 50 mcg PO DAILY 11/09/21 11/09/21 mcg (2,000 unit) capsule coenzyme Q10 100 mg capsule 100 mg PO DAILY 11/09/21 11/09/21 krill oil 1,000 mg-om3 130 mg-dha cap PO 11/09/21 11/09/21 40 mg-epa 80 [id number]-astax cap (Krill Oil ([place] 3 and 6)) Allergies Allergy/AdvReac Type Severity Reaction Status Date / Time No Known Allergies Allergy Verified 04/24/22 22:29 Review of Systems Review of Systems: CONSTITUTIONAL: Denies fever, chills, or sweats. EYES: Denies visual changes, redness, or discharge. ENT: Denies rhinorrhea, congestion, sore throat, or otalgia. CARDIOVASCULAR: Denies chest pain, palpitations, or edema. Hypertension RESPIRATORY: Denies cough or dyspnea. GASTROINTESTINAL: Denies abdominal pain, nausea, vomiting, or diarrhea. GENITOURINARY: Denies dysuria or hematuria. SKIN: Denies rash or itching. MUSCULOSKELETAL: Denies back pain, joint pain, or myalgia. NEUROLOGIC: Denies numbness weakness but does report tinnitus PMFSH Past Medical History Medical History Anxiety Atrial fibrillation Chronic kidney disease (CKD) stage G1/A2, glomerular filtration rate (GFR) equal to or greater than 90 mL/min/1.73 square meter and albuminuria creatinine ratio between 30-299 mg/g Goiter Hyperlipidemia Hypertension SAUMYA (obstructive sleep apnea) Osteopenia Vaginal delivery x3 Surgical History Surgical History H/O thyroidectomy 1989, left side Family History Family History Father Malignant neoplasm of prostate Mother Family history of lung cancer Family history of chronic obstructive pulmonary disease Social History Social History Smoking status: Never smoker Alcohol intake: never Substance use: never Gender identity (if verbalized by the patient): Female Spiritual care concerns: No Agree to blood products: Yes Exam Narrative: APPEARANCE: Well appearing, no pain, no distress, well-nourished. HEAD: normocephalic, atraumatic. EYES: PERRLA/EOMI, conjunctivae clear. NOSE: Normal no drainage EARS:TMS clear with good light reflex. THROAT: Pharynx clear, no exudate. NECK: Supple. No adenopathy, no masses. RESPIRATORY: Airway patent, respirations nonlabored. Clear to auscultation bilaterally, no rales, rhonchi,
[2022-05-17 10:34] LABS: Basophils Percent Auto 0.4 % (0.2-1.2); Eosinophils Absolute Auto 0.2 K/mm3 (0-0.3); Hematocrit 34.9 % (37.0-47.0); Hemoglobin 11.4 g/dL (12.0-15.0); Immature Granulocyte Absolute 0.01 K/mm3 (0.00-0.031); Immature Granulocyte Percent A 0.2 % (0-0.5); Immature Platelet Fraction Pct 8.2 % (0.9-11.2); Lymphocytes Absolute Auto 0.93 K/mm3 (0.9-3.2); Lymphocytes Percent Auto 17.5 % (18.3-44.2); Mean Corpuscular HGB Conc 32.7 g/dl (32-36); Mean Corpuscular Hemoglobin 29.1 pg (26-34); Mean Platelet Volume 11.7 fl (7.4-10.4); Monocytes Absolute Auto 0.4 K/mm3 (0.1-0.6); Monocytes Percent Auto 8.3 % (2.6-8.5); Neutrophils Absolute Auto 3.7 K/mm3 (1.3-6.7); Neutrophils Percent Auto 70.6 % (45.5-73.1); Platelet Count Result 125 k/mm3 (150-375); Red Blood Count 3.92 M/mm3 (4.2-5.4); Red Cell Distribution Width 13.3 % (11.5-14.5); White Blood Count 5.3 K/mm3 (4.5-10.0)
[2022-05-17 10:44] LABS: Alanine Aminotransferase 22 U/L (6-35); Albumin Level 4.2 g/dL (3.5-5.1); Alkaline Phosphatase 98 U/L (38-126); Anion Gap 10 mmol/L (8-16); Aspartate Amino Transferase 26 U/L (14-36); Bilirubin,Total 0.5 mg/dL (0.2-1.3); Blood Urea Nitrogen 37 mg/dL (7-17); Calcium 9.2 mg/dL (8.4-10.2); Carbon Dioxide 23 mmol/L (22-30); Chloride 102 mmol/L (98-107); Estimated CRCL calculation 27 ml/min; Estimated Glomerular Filt Rate 36; Glucose 117 mg/dL (65-110); Potassium 4.8 mmol/L (3.4-5.0); Sodium 135 mmol/L (137-145)
[2022-05-17 13:36] LABS: Add Urine Microscopic? YES; Appearance Urine Clear (Clear); Bacteria Urine 1+ /hpf; Bilirubin Urine Negative (Negative); Blood Urine 2+ (Negative); Color Urine Straw (Yellow); Glucose Urine UA Negative (Negative); Ketones Urine Negative (Negative); Leukocyte Esterase Ur Trace LEU/UL (Negative); Mucus Urine Rare /lpf; Nitrate Urine Negative (Negative); Protein Urine Negative (Negative); RBC Urine 0-2 /hpf (0-2); Specific Grav Ur 1.005 (1.001-1.035); Squamous Epithelial Cell Urine Rare /hpf (Few); Urobilinogen Urine Negative mg/dL (<2.0); WBC Clumps Urine Present /HPF
== END 2022-05-17 14:28 | disposition home or self-care (01) ==
PROVIDERS: Emergency Provider Emergency Medicine; PCP Family Medicine Sports Medicine
DX: I12.9 Hypertensive chronic kidney disease with stage 1 through stage 4 chronic kidney disease, or unspecified chronic kidney disease (principal); H93.19 Tinnitus, unspecified ear; I48.91 Unspecified atrial fibrillation; N18.9 Chronic kidney disease, unspecified; E78.5 Hyperlipidemia, unspecified; G47.33 Obstructive sleep apnea (adult) (pediatric); M85.80 Other specified disorders of bone density and structure, unspecified site; E89.0 Postprocedural hypothyroidism; Z79.01 Long term (current) use of anticoagulants; J32.9 Chronic sinusitis, unspecified
CPT/HCPCS: 36415; 70450; 80053; 81001; 85025; 85055; 87077; 87086; 87186; 96365; 99284; J0696

== ENCOUNTER 2022-09-07 15:52 | Observation (INO) | payer MEDICARE, SELFPAY ==
[2022-09-07] VITALS (8 sets, daily range): BP systolic 129–161; BP diastolic 42–68; PULSE 55–67; RESP 16–21; TEMP 36.4–36.5; O2SAT 97–100; BMI 36.6
--- NOTE | ~2022-09-07 | US_ITS ---
EXAMINATION: US renal BI DATE: 09/08/2022 09:42 INDICATION: Acute on chronic renal failure TECHNIQUE: Multiple grayscale and Doppler ultrasound images of the kidneys were obtained. COMPARISON: CT, 10/21/2020 FINDINGS: The right kidney measures 8.3 x 4.8 x 4.4 cm and contains multiple cysts measuring up to 1. 1 cm. The left kidney measures 11.8 x 5.0 x 3.9 cm and contains a chronic multiloculated cystic mass of the lower pole measuring up to 7.1 cm. The kidneys demonstrate increased parenchymal echogenicity. There is mild left hydronephrosis.. The bladder is normal. IMPRESSION: 1. Medical renal disease. 2. 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 3. Mild left hydronephrosis. Reviewed, dictated and finalized at location B. OROLOGICAL AIDE
--- NOTE | ~2022-09-07 | XR_ITS ---
EXAMINATION: XR chest 2V DATE: 09/07/2022 16:54 INDICATION: Weakness. TECHNIQUE: Frontal and lateral views of the chest were obtained. COMPARISON: Chest 2 views 07/17/2021, chest CT 10/23/2020 FINDINGS: There is no pneumonia, pleural effusion, or pneumothorax. Cardiomegaly is noted. IMPRESSION: 1. Cardiomegaly. Reviewed, dictated and finalized at location A. [employer] IMPRESSION: 1. Cardiomegaly.
--- NOTE | ~2022-09-07 | CT_ITS ---
EXAMINATION: CT brain wo con DATE: 09/07/2022 16:59 INDICATION: Altered mental status. TECHNIQUE: Computed tomography (CT) of the head was performed without intravenous contrast. The mA wa s adjusted according to patient size. Iterative reconstruction technique was employed. The dose-lengt h product was 605.33 mGy-cm. COMPARISON: Head CT 05/17/2022 FINDINGS: There are scattered areas of low attenuation in the cerebral white matter. There is no intr acranial hemorrhage, acute infarction, or abnormal intracranial mass lesion. The ventricles are nathan l in size. There are likely changes of ocular lens replacement surgeries. The paranasal sinuses are c lear. There are small bilateral mastoid effusions. IMPRESSION: 1. Stable moderate nonspecific cerebral white matter disease, which likely represents chronic small v essel ischemic disease. Reviewed, dictated and finalized at location A. CENTER MANAGER IMPRESSION: 1. Stable moderate nonspecific cerebral white matter disease, which likely repr esents chronic small vessel ischemic disease.
--- NOTE | 2022-09-07 16:00 | ECG_ITS ---
Measurements Intervals [place] Rate: 53 P: -28 MA: 172 QRS: 29 QRSD: 87 T: 43 QT: 410 QTc: 388 Interpretive Statements SINUS BRADYCARDIA OTHERWISE NORMAL ECG COMPARED TO ECG 02/20/2022 14:46:16 NO SIGNIFICANT CHANGE Electronically Signed On 09-08-2022 14:42:41 CHIEF FINANCIAL OFFICER by Juan Armstrong M.D.
--- NOTE | 2022-09-07 16:31 | ED.GENADULT ---
HPI - General Adult General Chief complaint: Recheck/Abnormal Lab/Rx Stated complaint: FLUCTUATING BLOOD PRESSURE Time Seen by Provider: 09/07/22 16:24 Source: RN notes reviewed History of Present Illness HPI narrative: Patient presents emergency department from home for blood pressure issues. Patient states that she went to bed at 10 PM last night was feeling fine had taken her normal medicine she states she awoke at 2 AM and felt a roaring in her ears and at that time checked her blood pressure was 211/88. She had been instructed that anytime her blood pressure was over 180 she needed to take her Catapres and so she took her Catapres more back to sleep. States that this morning she noticed her blood pressures have been running in the 90s she has been feeling weak and came to the emergency department for further evaluation. States she has been feeling dizzy with the symptoms as well as feeling weak. She denies any fevers or recent illness she denies any chest pain shortness of breath abdominal pain nausea vomiting diarrhea or any other symptoms Related Data Home Medications Medication Instructions Recorded Confirmed atorvastatin 40 mg tablet 40 mg PO HS 10/23/20 11/09/21 carvedilol 12.5 mg tablet 12.5 mg PO BID 10/23/20 11/09/21 spironolactone 25 mg tablet 25 mg PO DAILY 12/09/20 11/09/21 clonidine HCl 0.1 mg tablet BID 07/01/21 11/09/21 ascorbic acid (vitamin C) 100 mg 100 mg PO DAILY 11/09/21 11/09/21 tablet cholecalciferol (vitamin D3) 50 50 mcg PO DAILY 11/09/21 11/09/21 mcg (2,000 unit) capsule coenzyme Q10 100 mg capsule 100 mg PO DAILY 11/09/21 11/09/21 krill oil 1,000 mg-om3 130 mg-dha cap PO 11/09/21 11/09/21 40 mg-epa 80 [id number]-astax cap (Krill Oil ([place] 3 and 6)) Allergies Allergy/AdvReac Type Severity Reaction Status Date / Time No Known Allergies Allergy Verified 04/24/22 22:29 Review of Systems Review of Systems: Gen.: Denies fevers or chills Eyes: Denies eye pain or visual change ENT: Denies congestion Respiratory: Denies shortness of breath or cough CV: Denies chest pain or palpitations GI: Denies abdominal pain nausea, emesis or diarrhea Musculoskeletal: Denies back pain or muscle pain Neuro: Reports dizziness and weakness Skin: Denies rash Except as documented, all other systems reviewed and negative [facility] Past Medical History Medical History Anxiety Atrial fibrillation Chronic kidney disease (CKD) stage G1/A2, glomerular filtration rate (GFR) equal to or greater than 90 mL/min/1.73 square meter and albuminuria creatinine ratio between 30-299 mg/g Goiter Hyperlipidemia Hypertension SAUMYA (obstructive sleep apnea) Osteopenia Vaginal delivery x3 Surgical History Surgical History H/O thyroidectomy 1989, left side Family History Family History Father Malignant neoplasm of prostate Mother Family history of lung cancer Family history of chronic obstructive pulmonary disease Social History Social History Smoking status: Never smoker Alcohol intake: never Substance use: never Gender identity (if verbalized by the patient): Female Spiritual care concerns: No Agree to blood products: Yes Exam Narrative: APPEARANCE: No acute distress, nontoxic, resting in bed EYES: EOMI, PERRL HEENT: Normocephalic, atraumatic, OMM RESPIRATORY: No respiratory distress Clear to auscultation bilaterally with no rhonchi wheezing or rales. CARDIOVASCULAR: Regular rate and rhythm without murmurs rubs or gallops. ABDOMINAL: Soft, nontender, nondistended, no rebound or guarding MUSCULOSKELETAl: Moves all extremities. No clubbing, cyanosis or edema. NEURO: Awake and alert. Following commands, speech normal, no focal deficits SKIN:: Warm, dry. No rashes lesions or a
[2022-09-07 16:41] LABS: Basophils Percent Auto 0.2 % (0.2-1.2); Eosinophils Absolute Auto 0.4 K/mm3 (0-0.3); Eosinophils Percent Auto 3.8 % (0-4.4); Hematocrit 32.9 % (37.0-47.0); Hemoglobin 10.6 g/dL (12.0-15.0); Immature Granulocyte Absolute 0.03 K/mm3 (0.00-0.031); Immature Granulocyte Percent A 0.3 % (0-0.5); Lymphocytes Absolute Auto 0.95 K/mm3 (0.9-3.2); Lymphocytes Percent Auto 10.1 % (18.3-44.2); Mean Corpuscular HGB Conc 32.2 g/dl (32-36); Mean Corpuscular Hemoglobin 29.8 pg (26-34); Mean Corpuscular Volume 92.4 fl (80-100); Mean Platelet Volume 11.2 fl (7.4-10.4); Monocytes Absolute Auto 0.9 K/mm3 (0.1-0.6); Monocytes Percent Auto 9.4 % (2.6-8.5); Neutrophils Absolute Auto 7.2 K/mm3 (1.3-6.7); Neutrophils Percent Auto 76.2 % (45.5-73.1); Platelet Count Result 176 k/mm3 (150-375); Red Blood Count 3.56 M/mm3 (4.2-5.4); Red Cell Distribution Width 13.3 % (11.5-14.5); White Blood Count 9.4 K/mm3 (4.5-10.0)
[2022-09-07 16:53] LABS: Alanine Aminotransferase 22 U/L (6-35); Albumin Level 4.1 g/dL (3.5-5.1); Alkaline Phosphatase 106 U/L (38-126); Anion Gap 7 mmol/L (8-16); Aspartate Amino Transferase 24 U/L (14-36); Bilirubin,Total 0.5 mg/dL (0.2-1.3); Blood Urea Nitrogen 33 mg/dL (7-17); Calcium 9.2 mg/dL (8.4-10.2); Carbon Dioxide 27 mmol/L (22-30); Chloride 106 mmol/L (98-107); Estimated CRCL calculation 19 ml/min; Estimated Glomerular Filt Rate 24; Glucose 118 mg/dL (65-110); Potassium 4.9 mmol/L (3.4-5.0); Sodium 140 mmol/L (137-145)
[2022-09-07] MEDS: SODIUM CHLORIDE 0.9% IV 1,000 ML 999 ML IV CONT (17:06)
[2022-09-07 17:35] LABS: Add Urine Microscopic? YES; Appearance Urine Cloudy (Clear); Bilirubin Urine Negative (Negative); Blood Urine 1+ (Negative); Color Urine Yellow (Yellow); Glucose Urine UA Negative (Negative); Ketones Urine Negative (Negative); Leukocyte Esterase Ur 3+ LEU/UL (Negative); Nitrate Urine Negative (Negative); Protein Urine Trace mg/dL (Negative); Urobilinogen Urine 0.2 mg/dL (<2.0); pH Urine 5.5 (5.0-9.0)
[2022-09-07 17:40] LABS: Bacteria Urine Trace /hpf; Hyaline Casts Urine 20-29 /lpf; RBC Urine 21-50 /hpf (0-2); Squamous Epithelial Cell Urine Few /hpf (Few); WBC Clumps Urine Present /HPF; WBC Urine >75 /hpf
[2022-09-07 18:18] LABS: Influenza A QL RT-PCR Negative (Negative); Influenza B QL RT-PCR Negative (Negative); SARS-CoV-2 RNA PCR Negative
--- NOTE | 2022-09-07 21:14 | PC.NURSE ---
Attempted to call report but RN is unavailable at this time
--- NOTE | 2022-09-07 21:24 | PM.IMHP ---
H&P: HPI History of Present Illness Date/Time: 09/07/22 21:24 Chief Complaint: Fluctuating blood pressure Narrative: This is a 81-year-old female patient who does have a history of chronic kidney disease. The patient stated that her blood pressures have been elevated. The patient went to bed and slept well and so she woke up at 2:00 a.m. this morning and she checked her blood pressure was 211/88. The patient was instructed to take her Catapres if her blood pressures over 180 systolic LEEP. So the patient went back to bed after she took the Catapres. This morning she woke up and her systolic blood pressure was in the 90s. The patient stated that she felt dizzy and felt very weak. She denied any fever chills or any shortness of breath. No nausea vomiting diarrhea. H&H is 10.6 and 32.9. Her creatinine is now 2.0. With a baseline around 1.4. Her GFR is 24 with a baseline of 36. The patient was also found have a urinary tract infection. The patient was started on IV fluids and ceftriaxone. The patient was found to be negative for influenza A/B and COVID. Her blood pressure is now 129/42. The patient is being admitted for observation status on the date of service of 09/07/2022. Review of Systems Review of Systems: See HPI All systems reviewed & are unremarkable except as noted in HPI and below Constitutional: Constitutional: Reports as per HPI and Reports no additional constitutional complaints Eyes: Eyes: Reports as per HPI and Reports no additional eye complaints ENT: Reports system reviewed and no additional complaints, except as documented and Reports Normal hearing present Cardiovascular: Cardiovascular: Reports no additional cardiovascular complaints Respiratory: Respiratory: Reports no additional respiratory complaints and Reports no additional respiratory complaints Gastrointestinal: Gastrointestinal: Reports as per HPI and Reports no additional gastrointestinal complaints Musculoskeletal: Musculoskeletal: Reports no additional musculoskeletal complaints Integumentary/Breasts: Skin/Breast: Reports system reviewed and no additional complaints, except as docu and Reports as per HPI Neurologic: Reports system reviewed and no additional complaints, except as documented, Reports as per HPI and Reports Normal hearing present Psychiatric: Psychiatric: Reports no additional psychiatric complaints and Reports as per HPI Endocrine: Endocrine: Reports no additional endocrine complaints Hematologic/Lymphatic: Hematologic/Lymphatic: Reports no additional hematologic/lymphatic complaints Allergic/Immunologic: Allergic/Immunologic: Reports no additional allergic/immunologic complaints PMFSH Past Medical History Medical History (Updated 09/08/22 @ 01:04 by Veronica Guerra NP) Anxiety Atrial fibrillation Chronic kidney disease (CKD) stage G1/A2, glomerular filtration rate (GFR) equal to or greater than 90 mL/min/1.73 square meter and albuminuria creatinine ratio between 30-299 mg/g Goiter Hyperlipidemia Hypertension SAUMYA (obstructive sleep apnea) Osteopenia Personal history of colonic polyps Vaginal delivery x3 Surgical History Surgical History (Updated 09/07/22 @ 21:26 by Veronica Guerra NP) H/O cataract extraction H/O thyroidectomy 1989, left side History of tonsillectomy Family History Family History Father Malignant neoplasm of prostate Mother Family history of lung cancer Family history of chronic obstructive pulmonary disease Grandparent LEANDRO (acute kidney injury) Social History Social History (Updated 09/08/22 @ 00:56 by Veronica Guerra NP) Social History: The patient lives alone. She has 3 children. She is . 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 The patient does not have a durable power attorney recruiter. Lifelong nonsmoker. Code status full code Smoking status: Never smoker Alcohol intake: never
--- NOTE | 2022-09-07 21:49 | PC.NURSE ---
Patient arrived on unit at 21:45
[2022-09-07] MEDS: SODIUM CHLORIDE 0.9% IV 1,000 ML 100 ML IV CONT (21:59)
[2022-09-07] MEDS: APIXABAN 2.5 MG TABLET PO (23:41)
[2022-09-07] MEDS: carvediloL 12.5 MG TABLET PO (23:41)
--- NOTE | 2022-09-08 | ECHO_ITS ---
Patient Info Name: Linda Vanegas Age: 81 years : 1940 Gender: Female Ht: 60 in Wt: 187 lbs BSA: 1.94 m2 HR: 80 bpm BP: 147 / 53 mmHg Heart Rhythm: Sinus Rhythm Technical Quality: Good Exam Date: 09/08/2022 11:27 AM Exam Location: [facility] Patient Status: Inpatient Admit Date: 09/07/2022 Staff Ordering Physician: Veronica Guerra NP Radio Repairman: Lee Ann Collins RDCS Attending Provider: Brett Rush MD Referring Physician: Mari COTA; Exam Type: CA echo doppler color flow Study Info Indications I51.7 - Cardiomegaly Complete two-dimensional, color flow and Doppler transthoracic echocardiogram is performed. Summary 1. Complete two-dimensional, color flow and Doppler transthoracic echocardiogram is performed. 2. Normal left ventricular size and systolic function with grade 1 diastolic noncompliance. 3. Mildly sclerotic aortic valve which is not functionally stenotic. 4. Left atrial enlargement. Left Ventricle Left ventricular chamber dimension is normal. Left ventricular systolic function is normal, estimated at 65-70%. The left ventricular diastolic function is grade I diastolic dysfunction. Right Ventricle Right ventricular chamber dimension is normal. Left Atria Left atrial chamber dimension is mildly enlarged. Right Atria Right atrial chamber dimension is normal. Aortic Valve There is mild aortic valve sclerosis. Pulmonic Valve The pulmonic valve is normal. There is trace pulmonic regurgitation. Mitral Valve The mitral valve has normal leaflets. Tricuspid Valve The tricuspid valve leaflets are normal. Pericardium/Pleural The pericardium appears normal. Aorta The aortic root size at the sinus of Valsalva is normal. Left Ventricular Outflow Tract Name Value Normal LVOT 2D LVOT Diameter 2.0 cm LVOT Doppler LVOT Peak Gradient 8 mmHg LVOT Mean Gradient 5 mmHg LVOT VTI 36 cm LVOT VTI/AV VTI Ratio 0.8 LVOT Stroke Volume 114 ml LVOT CO 20.4 l/min LVOT CI 11.3 l/min/m2 Pulmonic Valve Name Value Normal PV Doppler PV Peak Gradient 7 mmHg Mitral Valve Name Value Normal MV Doppler MV Decel [place] 416 cm/s2 MV PHT 77 ms MV Area (PHT) 2.8 cm2 4.0-5.0 MV Diastolic Function
[2022-09-08] MEDS: ATORVASTATIN 40 MG TABLET PO ×2 (01:54→20:57)
[2022-09-08 05:06] VITALS: BP 147/53; PULSE 64; RESP 16; TEMP 36.4; O2SAT 95
[2022-09-08 06:30] LABS: Basophils Percent Auto 0.3 % (0.2-1.2); Eosinophils Absolute Auto 0.5 K/mm3 (0-0.3); Eosinophils Percent Auto 6.5 % (0-4.4); Hemoglobin 9.5 g/dL (12.0-15.0); Immature Granulocyte Absolute 0.03 K/mm3 (0.00-0.031); Immature Granulocyte Percent A 0.4 % (0-0.5); Lymphocytes Absolute Auto 1.31 K/mm3 (0.9-3.2); Lymphocytes Percent Auto 17.1 % (18.3-44.2); Mean Corpuscular HGB Conc 31.7 g/dl (32-36); Mean Corpuscular Hemoglobin 29.4 pg (26-34); Mean Corpuscular Volume 92.9 fl (80-100); Mean Platelet Volume 11.5 fl (7.4-10.4); Monocytes Absolute Auto 0.5 K/mm3 (0.1-0.6); Neutrophils Absolute Auto 5.3 K/mm3 (1.3-6.7); Neutrophils Percent Auto 68.7 % (45.5-73.1); Platelet Count Result 143 k/mm3 (150-375); Red Blood Count 3.23 M/mm3 (4.2-5.4); Red Cell Distribution Width 13.5 % (11.5-14.5); White Blood Count 7.7 K/mm3 (4.5-10.0)
[2022-09-08 06:49] LABS: Alanine Aminotransferase 18 U/L (6-35); Albumin Level 3.4 g/dL (3.5-5.1); Alkaline Phosphatase 97 U/L (38-126); Anion Gap 4 mmol/L (8-16); Aspartate Amino Transferase 20 U/L (14-36); Bilirubin,Total 0.3 mg/dL (0.2-1.3); Blood Urea Nitrogen 28 mg/dL (7-17); Calcium 8.1 mg/dL (8.4-10.2); Carbon Dioxide 24 mmol/L (22-30); Chloride 108 mmol/L (98-107); Estimated CRCL calculation 25 ml/min; Estimated Glomerular Filt Rate 33; Glucose 97 mg/dL (65-110); Potassium 4.2 mmol/L (3.4-5.0); Sodium 136 mmol/L (137-145)
[2022-09-08] MEDS: SODIUM CHLORIDE 0.9% IV 1,000 ML 100 ML IV CONT ×2 (10:06→23:08)
[2022-09-08 10:08] VITALS: PULSE 62
[2022-09-08] MEDS: carvediloL 12.5 MG TABLET PO ×2 (10:08→20:57)
[2022-09-08] MEDS: CHOLECALCIFEROL 1,000 UNITS TABLET 2000 UNITS PO (10:08)
[2022-09-08] MEDS: hydrALAZINE HCL 50 MG TABLET PO ×2 (10:08→17:40)
[2022-09-08] MEDS: APIXABAN 2.5 MG TABLET PO ×2 (10:08→20:58)
[2022-09-08 14:00] VITALS: BP 176/55; PULSE 64; RESP 16; TEMP 36.8; O2SAT 100
--- NOTE | 2022-09-08 16:50 | PM.IMPN ---
Progress Note: A&P Assessment and Plan (1) Acute UTI: Code(s): N39.0 - Urinary tract infection, site not specified Status: Acute Assessment and Plan: -continue with Rocephin. -tailor antibiotics to results of cultures. 09/08/2022 interval history: 81-year-old female with history of hypertension had been taking taking Coreg 12.5 mg b.i.d., spironolactone 25 mg q.day, hydrochlorothiazide 25 mg q.day, and hydralazine 50 mg b.i.d. as well as clonidine 0.1 mg b.i.d. as needed this may have led to rebound hypertension, patient is placed on clonidine as scheduled, will continue to monitor and further recommendation to follow. Upon arrival patient's serum creatinine was elevated 2 her baseline creatinine is 1.2, patient was gently hydrated, kidney ultrasound showed medical renal disease, to further evaluate patient had a cardiac echo showed normal ejection fraction 65-70% and grade 1 diastolic dysfunction. (2) Acute on chronic renal insufficiency: Code(s): N28.9 - Disorder of kidney and ureter, unspecified; N18.9 - Chronic kidney disease, unspecified Status: Acute Assessment and Plan: -continue to gently hydrate the patient. Renal ultrasound. -hold hydrochlorothiazide -hold spironolactone (3) Hypertension: Code(s): I10 - Essential (primary) hypertension Status: Acute Assessment and Plan: -continue with hydralazine -continue with Coreg -continue with Catapres (4) Anxiety: Code(s): F41.9 - Anxiety disorder, unspecified Status: Acute Assessment and Plan: -continue home medications. (5) Atrial fibrillation: Code(s): I48.91 - Unspecified atrial fibrillation Status: Acute Assessment and Plan: -the patient is in sinus rhythm with bradycardia. -continue with Eliquis -continue with Coreg (6) Hyperlipidemia: Code(s): E78.5 - Hyperlipidemia, unspecified Status: Acute Assessment and Plan: Heart healthy diet Atorvastatin Subjective Date/time seen: 09/08/22 16:50 Fluctuating blood pressure Narrative: This is a 81-year-old female patient who does have a history of chronic kidney disease.? The patient stated that her blood pressures have been elevated.? The patient went to bed and slept well and so she woke up at 2:00 a.m. this morning and she checked her blood pressure was 211/88.? The patient was instructed to take her Catapres if her blood pressures over 180 systolic LEEP.? So the patient went back to bed after she took the Catapres.? This morning she woke up and her systolic blood pressure was in the 90s.? The patient stated that she felt dizzy and felt very weak.? She denied any fever chills or any shortness of breath.? No nausea vomiting diarrhea.? H&H is 10.6 and 32.9.? Her creatinine is now 2.0.? With a baseline around 1.4.? Her GFR is 24 with a baseline of 36.? The patient was also found have a urinary tract infection.? The patient was started on IV fluids and ceftriaxone.? The patient was found to be negative for influenza A/B and COVID.? Her blood pressure is now 129/42.? The patient is being admitted for observation status on the date of service of 09/07/2022. 09/08/2022 interval history: 81-year-old female with history of hypertension had been taking taking Coreg 12.5 mg b.i.d., spironolactone 25 mg q.day, hydrochlorothiazide 25 mg q.day, and hydralazine 50 mg b.i.d. as well as clonidine 0.1 mg b.i.d. as needed this may have led to rebound hypertension, patient is placed on clonidine as scheduled, will continue to monitor and further recommendation to follow. Upon arrival patient's serum creatinine was elevated 2 her baseline creatinine is 1.2, patient was gently hydrated, kidney ultrasound showed medical renal disease, to further evaluate patient had a cardiac echo showed normal ejection fraction 65-70% and grade 1 diastolic dysfunction. Exam Narrative: Patient is comfortable, NAD HEENT: eyes are clear and none icter
[2022-09-08 20:57] VITALS: PULSE 70
[2022-09-08 21:50] VITALS: BP 156/49; PULSE 70; RESP 14; TEMP 37.2; O2SAT 99
[2022-09-09] MEDS: ACETAMINOPHEN 325 MG TABLET 650 MG PO (00:01)
[2022-09-09 05:53] VITALS: BP 155/45; PULSE 61; RESP 14; TEMP 36.8; O2SAT 97
[2022-09-09 08:49] VITALS: PULSE 70
[2022-09-09] MEDS: cloNIDine HCL 0.1 MG TABLET PO (08:49)
[2022-09-09] MEDS: carvediloL 12.5 MG TABLET PO (08:49)
[2022-09-09] MEDS: CHOLECALCIFEROL 1,000 UNITS TABLET 2000 UNITS PO (08:49)
[2022-09-09] MEDS: hydrALAZINE HCL 50 MG TABLET PO (08:50)
[2022-09-09] MEDS: APIXABAN 2.5 MG TABLET PO (08:50)
[2022-09-09] MEDS: SODIUM CHLORIDE 0.9% IV 1,000 ML 100 ML IV CONT (08:54)
[2022-09-09 13:10] VITALS: BP 200/82; PULSE 73; RESP 18; TEMP 36.6; O2SAT 100
[2022-09-09 13:12] VITALS: BP 182/78
--- NOTE | 2022-09-09 13:39 | PM.DS ---
DS: Admitting Diagnosis Discharge Date 09/09/2022 Admitting Diagnosis fluctuating blood pressure DS: Discharge Diagnosis Discharge Diagnosis (1) Acute UTI: Code(s): N39.0 - Urinary tract infection, site not specified Status: Acute Assessment and Plan: -continue with Rocephin. -tailor antibiotics to results of cultures. 09/08/2022 interval history: 81-year-old female with history of hypertension had been taking taking Coreg 12.5 mg b.i.d., spironolactone 25 mg q.day, hydrochlorothiazide 25 mg q.day, and hydralazine 50 mg b.i.d. as well as clonidine 0.1 mg b.i.d. as needed this may have led to rebound hypertension, patient is placed on clonidine as scheduled, will continue to monitor and further recommendation to follow. Upon arrival patient's serum creatinine was elevated 2 her baseline creatinine is 1.2, patient was gently hydrated, kidney ultrasound showed medical renal disease, to further evaluate patient had a cardiac echo showed normal ejection fraction 65-70% and grade 1 diastolic dysfunction. (2) Acute on chronic renal insufficiency: Code(s): N28.9 - Disorder of kidney and ureter, unspecified; N18.9 - Chronic kidney disease, unspecified Status: Acute Assessment and Plan: -continue to gently hydrate the patient. Renal ultrasound. -hold hydrochlorothiazide -hold spironolactone (3) Hypertension: Code(s): I10 - Essential (primary) hypertension Status: Acute Assessment and Plan: -continue with hydralazine -continue with Coreg -continue with Catapres (4) Anxiety: Code(s): F41.9 - Anxiety disorder, unspecified Status: Acute Assessment and Plan: -continue home medications. (5) Atrial fibrillation: Code(s): I48.91 - Unspecified atrial fibrillation Status: Acute Assessment and Plan: -the patient is in sinus rhythm with bradycardia. -continue with Eliquis -continue with Coreg (6) Hyperlipidemia: Code(s): E78.5 - Hyperlipidemia, unspecified Status: Acute Assessment and Plan: Heart healthy diet Atorvastatin DS: Summary Hospital Course Reason for hospitalization: Fluctuating blood pressure Narrative: This is a 81-year-old female patient who does have a history of chronic kidney disease.? The patient stated that her blood pressures have been elevated.? The patient went to bed and slept well and so she woke up at 2:00 a.m. this morning and she checked her blood pressure was 211/88.? The patient was instructed to take her Catapres if her blood pressures over 180 systolic LEEP.? So the patient went back to bed after she took the Catapres.? This morning she woke up and her systolic blood pressure was in the 90s.? The patient stated that she felt dizzy and felt very weak.? She denied any fever chills or any shortness of breath.? No nausea vomiting diarrhea.? H&H is 10.6 and 32.9.? Her creatinine is now 2.0.? With a baseline around 1.4.? Her GFR is 24 with a baseline of 36.? The patient was also found have a urinary tract infection.? The patient was started on IV fluids and ceftriaxone.? The patient was found to be negative for influenza A/B and COVID.? Her blood pressure is now 129/42.? The patient is being admitted for observation status on the date of service of 09/07/2022. Hospital Course: ??81-year-old female with history of hypertension had been taking taking Coreg 12.5 mg b.i.d., spironolactone 25 mg q.day,? hydrochlorothiazide 25 mg q.day,? and hydralazine 50 mg b.i.d. as well as clonidine 0.1 mg b.i.d. as needed this may have led to rebound hypertension, patient is placed on clonidine as scheduled, will continue to monitor and further recommendation to follow. Upon arrival patient's serum creatinine was elevated 2? her baseline creatinine is 1.2,? patient was gently hydrated, kidney ultrasound showed medical renal disease, to further evaluate patient had a cardiac echo showed normal ejection fraction 65-70% and grade 1 di
== END 2022-09-09 14:45 | disposition home or self-care (01) ==
LOC: ANHED 18:08 → ANH3MEDSUR 21:31
PROVIDERS: Emergency Medicine; Admitting Provider Internal Medicine; Emergency Provider Emergency Medicine; PCP Family Medicine Sports Medicine; Visit Provider Family Medicine
DX: N39.0 Urinary tract infection, site not specified (principal); B96.1 Klebsiella pneumoniae [K. pneumoniae] as the cause of diseases classified elsewhere; I12.9 Hypertensive chronic kidney disease with stage 1 through stage 4 chronic kidney disease, or unspecified chronic kidney disease; N18.9 Chronic kidney disease, unspecified; N28.89 Other specified disorders of kidney and ureter; F41.9 Anxiety disorder, unspecified; I48.91 Unspecified atrial fibrillation; N13.30 Unspecified hydronephrosis; Z20.822 Contact with and (suspected) exposure to COVID-19; E78.5 Hyperlipidemia, unspecified; R00.1 Bradycardia, unspecified; R53.1 Weakness; R42 Dizziness and giddiness; I51.7 Cardiomegaly; R90.82 White matter disease, unspecified; M85.80 Other specified disorders of bone density and structure, unspecified site; G47.33 Obstructive sleep apnea (adult) (pediatric); Z79.899 Other long term (current) drug therapy
CPT/HCPCS: 36415; 70450; 71046; 76775; 80053; 81001; 85025; 87040; 87077; 87086; 87186; 87636; 93005; 93306; 96361; 96365; 99285; A9270; G0378; J0696; J7030

== ENCOUNTER 2023-08-10 16:37 | Emergency (ER) | payer OTHER, MEDICARE, SELFPAY ==
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
[2023-08-10 16:39] VITALS: BP 224/95; PULSE 62; RESP 16; TEMP 36.4; O2SAT 99
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
[2023-08-10] MEDS: ACETAMINOPHEN 500 MG TABLET 1000 MG PO (17:36)
[2023-08-10] MEDS: cloNIDine HCL 0.1 MG TABLET PO (17:36)
[2023-08-10 17:39] VITALS: BP 228/89; PULSE 68; RESP 16; O2SAT 99
== END 2023-08-10 17:57 | disposition home or self-care (01) ==
LOC: ANHED 17:30
PROVIDERS: Emergency Provider Student in an Organized Health Care Education/Training Program; PCP Family Medicine Sports Medicine
DX: S00.03XA Contusion of scalp, initial encounter (principal); M47.812 Spondylosis without myelopathy or radiculopathy, cervical region; I48.91 Unspecified atrial fibrillation; I12.9 Hypertensive chronic kidney disease with stage 1 through stage 4 chronic kidney disease, or unspecified chronic kidney disease; N18.30 Chronic kidney disease, stage 3 unspecified; E78.5 Hyperlipidemia, unspecified; E89.0 Postprocedural hypothyroidism; G47.33 Obstructive sleep apnea (adult) (pediatric); M85.80 Other specified disorders of bone density and structure, unspecified site; Z86.010 Personal history of colon polyps; Z79.01 Long term (current) use of anticoagulants; Z98.49 Cataract extraction status, unspecified eye; V49.40XA Driver injured in collision with unspecified motor vehicles in traffic accident, initial encounter
CPT/HCPCS: 70450; 72125; 99284; A9270

== ENCOUNTER 2023-09-04 20:50 | Emergency (ER) | payer MEDICARE, SELFPAY ==
--- NOTE | ~2023-09-04 | XR_ITS ---
EXAMINATION: XR chest 1V portable Exam Date/Time: 09/04/2023 21:55 AUTOMOTIVE ARTIST HISTORY: LEFT ARM numbness AND WEAKNESS Comparison: 09/07/2022. RESULT: Lines, tubes, and devices: None. Lungs and pleura: Mild diffuse reticular opacities. Cardiomediastinal silhouette: Stable. Other: No acute osseous or upper abdominal finding. IMPRESSION: Mild interstitial edema. Reviewed, dictated and finalized at location K. MOTIVE ARTIST IMPRESSION: Mild interstitial edema.
--- NOTE | ~2023-09-04 | CT_ITS ---
EXAMINATION: CT brain wo con DATE: 09/04/2023 21:06 INDICATION: left hand numbness . TECHNIQUE: Computed tomography (CT) of the head was performed without intravenous contrast. The mA wa s adjusted according to patient size. Iterative reconstruction technique was employed. The dose-lengt h product was 605.33 mGy-cm. COMPARISON: 08/10/2023. FINDINGS: No acute intracranial hemorrhage or extra-axial fluid collection. No hydrocephalus, mass, or herniation. No acute ischemic infarct. Unremarkable dural venous sinus attenuation. No acute osseous abnormality. Left mastoid fluid, the remaining aerated spaces are clear. Moderate atrophy and chronic white matter change. Atherosclerotic intracranial calcification. Bilater al lens replacements. IMPRESSION: No acute intracranial process. Reviewed, dictated and finalized at location K. OSURGERY PHYSICIAN
[2023-09-04 21:00] VITALS: BP 230/78; PULSE 56; RESP 15; TEMP 36.1; O2SAT 98
--- NOTE | 2023-09-04 21:00 | ECG_ITS ---
Measurements Intervals [place] Rate: 57 P: -19 MT: 178 QRS: 31 QRSD: 94 T: 47 QT: 415 QTc: 405 Interpretive Statements SINUS BRADYCARDIA LEFT VENTRICULAR HYPERTROPHY AND ST-T CHANGE [VOLTAGE CRITERIA PLUS ST/T ABNORMALITY] COMPARED TO ECG 09/07/2022 16:25:45 LEFT VENTRICULAR HYPERTROPHY NOW PRESENT ST (T WAVE) DEVIATION NOW PRESENT Electronically Signed On 09-05-2023 13:17:54 DEPOSIT CLERK by Kitty Carvalho M.D.
[2023-09-04 21:15] VITALS: PULSE 87
[2023-09-04 21:17] VITALS: PULSE 60; RESP 12; O2SAT 100
[2023-09-04 21:19] VITALS: BP 194/63; PULSE 57; RESP 11; O2SAT 100
--- NOTE | 2023-09-04 21:22 | ECG_ITS ---
Measurements Intervals [place] Rate: 57 P: -20 [place]: 181 QRS: 30 QRSD: 96 T: 33 QT: 443 QTc: 434 Interpretive Statements SINUS BRADYCARDIA LEFT VENTRICULAR HYPERTROPHY AND ST-T CHANGE COMPARED TO ECG 09/04/2023 21:18:54 NO SIGNIFICANT CHANGES Electronically Signed On 09-05-2023 13:18:31 TUBULAR PRODUCTS FABRICATOR by Kitty Carvalho M.D.
[2023-09-04 21:41] LABS: Basophils Percent Auto 0.4 % (0.2-1.2); Eosinophils Absolute Auto 0.2 K/mm3 (0-0.3); Eosinophils Percent Auto 2.3 % (0-4.4); Hematocrit 33.8 % (37.0-47.0); Hemoglobin 10.6 g/dL (12.0-15.0); Immature Granulocyte Absolute 0.01 K/mm3 (0.00-0.031); Immature Granulocyte Percent A 0.1 % (0-0.5); Lymphocytes Absolute Auto 1.65 K/mm3 (0.9-3.2); Lymphocytes Percent Auto 24.2 % (18.3-44.2); Mean Corpuscular HGB Conc 31.4 g/dl (32-36); Mean Corpuscular Hemoglobin 28.6 pg (26-34); Mean Corpuscular Volume 91.4 fl (80-100); Mean Platelet Volume 11.5 fl (7.4-10.4); Monocytes Absolute Auto 0.6 K/mm3 (0.1-0.6); Monocytes Percent Auto 9.2 % (2.6-8.5); Neutrophils Absolute Auto 4.4 K/mm3 (1.3-6.7); Neutrophils Percent Auto 63.8 % (45.5-73.1); Platelet Count Result 144 k/mm3 (150-375); White Blood Count 6.8 K/mm3 (4.5-10.0)
[2023-09-04 21:53] LABS: INR 1.1; Prothrombin Time 14.8 Seconds (11.1-14.7)
[2023-09-04 21:58] LABS: Glucose Point of Care 123 mg/dl (65-105)
[2023-09-04 22:22] LABS: Alanine Aminotransferase 24 U/L (6-35); Albumin Level 3.9 g/dL (3.5-5.1); Alkaline Phosphatase 106 U/L (38-126); Anion Gap 8 mmol/L (8-16); Aspartate Amino Transferase 32 U/L (14-36); Bilirubin,Total 0.4 mg/dL (0.2-1.3); Blood Urea Nitrogen 22 mg/dL (7-17); Carbon Dioxide 26 mmol/L (22-30); Chloride 103 mmol/L (98-107); Estimated Glomerular Filt Rate 39; Glucose 110 mg/dL (65-110); Potassium 4.5 mmol/L (3.4-5.0); Sodium 137 mmol/L (137-145)
[2023-09-04 22:33] LABS: Troponin I < 0.012 ng/mL (0.000-0.034)
[2023-09-04 23:15] VITALS: BP 158/54; PULSE 57; RESP 15; O2SAT 100
[2023-09-04] MEDS: ACETAMINOPHEN 500 MG TABLET 1000 MG PO (23:45)
--- NOTE | 2023-09-04 23:52 | ED.GENADULT ---
HPI - General Adult General Chief complaint: Neuro Symptoms/Deficit Stated complaint: L hand/arm numbness Time Seen by Provider: 09/04/23 21:42 History of Present Illness HPI narrative: Patient is a 82-year-old female who presents emergency department with chief complaint of TIA symptoms. The patient reports that today she was at home had numbness that was ascending up her left arm up to her left side of her face. The patient reports symptoms last for approximately 30 minutes and resolved by the time she arrived in the emergency department. Patient has history of atrial fibrillation and is on a DOAC Related Data Home Medications Medication Instructions Recorded Confirmed atorvastatin 40 mg tablet 40 mg PO HS 10/23/20 09/04/23 carvedilol 12.5 mg tablet 12.5 mg PO BID 10/23/20 09/04/23 spironolactone 25 mg tablet 25 mg PO DAILY 12/09/20 09/07/22 clonidine HCl 0.1 mg tablet 0.1 mg PO BID 07/01/21 09/07/22 ascorbic acid (vitamin C) 100 mg 100 mg PO DAILY 11/09/21 09/07/22 tablet cholecalciferol (vitamin D3) 50 50 mcg PO DAILY 11/09/21 09/07/22 mcg (2,000 unit) capsule hydralazine 50 mg tablet 50 mg PO BID 09/07/22 09/07/22 hydrochlorothiazide 25 mg tablet 25 mg PO BID 09/07/22 09/07/22 losartan 50 mg tablet 50 mg PO BID 09/04/23 09/04/23 Allergies Allergy/AdvReac Type Severity Reaction Status Date / Time No Known Allergies Allergy Verified 09/07/22 22:33 Review of Systems Review of Systems: A 10 system review of systems was completed on the patient and is negative except for what is stated in the HPI. Nursing and ancillary documentation was reviewed. [facility] Past Medical History Medical History Anxiety Atrial fibrillation Chronic kidney disease (CKD) stage G1/A2, glomerular filtration rate (GFR) equal to or greater than 90 mL/min/1.73 square meter and albuminuria creatinine ratio between 30-299 mg/g Goiter Hyperlipidemia Hypertension SAUMYA (obstructive sleep apnea) Osteopenia Personal history of colonic polyps Vaginal delivery x3 Surgical History Surgical History H/O cataract extraction H/O thyroidectomy 1989, left side History of tonsillectomy Family History Family History Father Malignant neoplasm of prostate Mother Family history of lung cancer Family history of chronic obstructive pulmonary disease Grandparent LEANDRO (acute kidney injury) Social History Social History Social History: The patient lives alone. She has 3 children. She is . 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 The patient does not have a durable power health care attorney. Lifelong nonsmoker. Code status full code Smoking status: Never smoker Alcohol intake: never Substance use: never Lack of Transportation: No Lack of Food: Never True Current Housing: I Have Housing Concerned About Future Housing: No Difficulty Paying Gas/Electric Bills: No Difficulty Paying for Meds: No Currently Unemployed: No Education: Grade School Difficulty w/ Childcare or Family Care: No Living arrangements: alone Gender identity (if verbalized by the patient): Female Spiritual care concerns: No Agree to blood products: Yes Exam Narrative: GENERAL: Well-appearing, well-nourished, and in no acute distress. HEAD: Normocephalic, atraumatic. EYES: PERRLA and EOMI. ENT: Nares clear, no rhinorrhea or epistaxis. Mucous membranes moist. NECK: Supple. CHEST: Clear to auscultation. No respiratory distress. HEART: Regular rate and rhythm. No murmur heard. Normal peripheral pulses. ABDOMEN: Soft, nontender, nondistended, normal active bowel sounds. EXTREMITIES: Normal range of motion. No edema. SKIN: Warm, dry, no rash. NEURO: No focal defic
[2023-09-05 00:10] VITALS: BP 195/50; PULSE 59; RESP 18; O2SAT 99
[2023-09-05 03:38] VITALS: BP 159/53; PULSE 64; RESP 14; O2SAT 100
--- NOTE | 2023-09-05 04:01 | PC.NURSE ---
Spoke with Dunia from [facility] transfer center. Pt has been accepted to [facility] and is awaiting a bed number on the neuro floor.
[2023-09-05 05:28] VITALS: BP 146/47; PULSE 65; RESP 21; O2SAT 100
== END 2023-09-05 06:05 | disposition short-term general hospital (02) ==
LOC: ANHED 22:24
PROVIDERS: General Practice; Emergency Provider Emergency Medicine; PCP Family Medicine Sports Medicine
DX: G45.9 Transient cerebral ischemic attack, unspecified (principal); I48.91 Unspecified atrial fibrillation; I12.9 Hypertensive chronic kidney disease with stage 1 through stage 4 chronic kidney disease, or unspecified chronic kidney disease; N18.1 Chronic kidney disease, stage 1; E78.5 Hyperlipidemia, unspecified; G47.33 Obstructive sleep apnea (adult) (pediatric); F41.9 Anxiety disorder, unspecified; Z79.01 Long term (current) use of anticoagulants
CPT/HCPCS: 36415; 70450; 71045; 80053; 82948; 84484; 85025; 85610; 85730; 93005; 99285; A9270

== ENCOUNTER 2023-12-08 00:46 | Emergency (ER) | payer MEDICARE, SELFPAY ==
[2023-12-08] VITALS (11 sets, daily range): BP systolic 120–212; BP diastolic 41–87; PULSE 57–86; RESP 15–18; TEMP 36.8; O2SAT 90–100
--- NOTE | ~2023-12-08 | XR_ITS ---
XR knee RT min 4V DATE: 12/08/2023 03:39 INDICATION: Right knee pain after fall TECHNIQUE: Crosstable lateral, AP and bilateral oblique views COMPARISON: 02/18/2012 right knee FINDINGS: Moderate tricompartment osteoarthritis greatest involvement at the patellofemoral and media l compartments. No fracture or dislocation or joint effusion. No periosteal reaction or bone destruction. Femoral and posterior tibial artery calcifications. IMPRESSION: Osteoarthritis Reviewed, dictated and finalized at location A. IMPRESSION: Osteoarthritis
--- NOTE | 2023-12-08 02:32 | ED.FALL ---
HPI - Fall General Chief Complaint: Fall Stated Complaint: fall earlier today heard knee pop Time Seen by Provider: 12/08/23 02:30 Source: patient Limitations: no limitations History of Present Illness HPI Narrative: Patient sustained a ground level fall at approximately 2100, tripping on the curb. Her right knee popped . She is complainign of numbness and burning. Initially complained of R shoulder pain in triage but denies this at present. No head trauma. No loss of consciousness. Has not yet taken pain medication yet. States she can't take NSAIDs because of underlying kidney dysfunction. She is also on Elliquis. Pain is primarily along right lateral knee. Related Data Home Medications Medication Instructions Recorded Confirmed atorvastatin 40 mg tablet 40 mg PO HS 10/23/20 09/04/23 carvedilol 12.5 mg tablet 12.5 mg PO BID 10/23/20 09/04/23 spironolactone 25 mg tablet 25 mg PO DAILY 12/09/20 09/07/22 clonidine HCl 0.1 mg tablet 0.1 mg PO BID 07/01/21 09/07/22 ascorbic acid (vitamin C) 100 mg 100 mg PO DAILY 11/09/21 09/07/22 tablet cholecalciferol (vitamin D3) 50 50 mcg PO DAILY 11/09/21 09/07/22 mcg (2,000 unit) capsule hydralazine 50 mg tablet 50 mg PO BID 09/07/22 09/07/22 hydrochlorothiazide 25 mg tablet 25 mg PO BID 09/07/22 09/07/22 losartan 50 mg tablet 50 mg PO BID 09/04/23 09/04/23 Allergies Allergy/AdvReac Type Severity Reaction Status Date / Time No Known Allergies Allergy Verified 12/08/23 01:13 [facility] Past Medical History Medical History Anxiety Atrial fibrillation Chronic kidney disease (CKD) stage G1/A2, glomerular filtration rate (GFR) equal to or greater than 90 mL/min/1.73 square meter and albuminuria creatinine ratio between 30-299 mg/g Goiter Hyperlipidemia Hypertension SAUMYA (obstructive sleep apnea) Osteopenia Personal history of colonic polyps Vaginal delivery x3 Surgical History Surgical History H/O cataract extraction H/O thyroidectomy 1989, left side History of tonsillectomy Family History Family History Father Malignant neoplasm of prostate Mother Family history of lung cancer Family history of chronic obstructive pulmonary disease Grandparent LEANDRO (acute kidney injury) Social History Social History Social History: The patient lives alone. She has 3 children. She is . 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 The patient does not have a durable power environmental attorney. Lifelong nonsmoker. Code status full code Smoking status: Never smoker Alcohol intake: never Substance use: never Lack of Transportation: No Lack of Food: Never True Current Housing: I Have Housing Concerned About Future Housing: No Difficulty Paying Gas/Electric Bills: No Difficulty Paying for Meds: No Currently Unemployed: No Education: Grade School Difficulty w/ Childcare or Family Care: No Living arrangements: alone Gender identity (if verbalized by the patient): Female Spiritual care concerns: No Agree to blood products: Yes Exam Narrative: GENERAL: Well-appearing, well-nourished, and in no acute distress. HEAD: Normocephalic, atraumatic. EYES: Non injected, non icteric ENT: Nares clear, no rhinorrhea or epistaxis. NECK: Supple. CHEST: Speaking in full sentences. No respiratory distress. HEART: Regular rate and rhythm. . ABDOMEN: Soft, nondistended. EXTREMITIES: Normal range of motion. Edema throughout bilateral lower extremities. Warm and well perfused. Ecchymosis along anterior surface of right knee. Mild TTP along lateral joint line. SKIN: Warm, dry, no rash. NEURO: No focal deficits. Alert and oriented x3. Sensation symmetric in bilateral LEs. 5/5 strength with right ankle
[2023-12-08] MEDS: ACETAMINOPHEN 325 MG TABLET 650 MG PO (03:00)
[2023-12-08] MEDS: HYDROcodone/acetaminophen (*CRX) 5-325 MG TABLET 1 TAB PO (03:01)
--- NOTE | 2023-12-08 06:47 | PC.NURSE ---
Knee Immobilizer placed and education provided to pt and daughter. both verbalized understanding.
== END 2023-12-08 06:54 | disposition home or self-care (01) ==
PROVIDERS: Emergency Provider Student in an Organized Health Care Education/Training Program; PCP Family Medicine Sports Medicine
DX: M25.561 Pain in right knee (principal); W01.0XXA Fall on same level from slipping, tripping and stumbling without subsequent striking against object, initial encounter; I48.91 Unspecified atrial fibrillation; I12.9 Hypertensive chronic kidney disease with stage 1 through stage 4 chronic kidney disease, or unspecified chronic kidney disease; N18.1 Chronic kidney disease, stage 1; E78.5 Hyperlipidemia, unspecified; F41.9 Anxiety disorder, unspecified; G47.33 Obstructive sleep apnea (adult) (pediatric); Z79.01 Long term (current) use of anticoagulants
CPT/HCPCS: 73564; 99283; A9270

== ENCOUNTER 2025-01-21 13:23 | Outpatient (CLI) | payer MEDICARE, SELFPAY ==
--- NOTE | ~2025-01-21 | DEXA_ITS ---
Bone Density Report Name: DISHA GERARD Age: 84 Sex: Female Ethnicity: White Date of : 1940 Indication: osteopenia; height loss; prior fracture; Referring Provider: NISA RABAGO Study: Bone densitometry was performed. Exam Date: January 21, 2025 Accession number: [id number] Bone Density: Region BMD T-score Z-score Classification AP Spine(L1-L4) 1.040 -0.1 2.8 Normal Femoral Neck (Left) 0.620 -2.1 0.5 Osteopenia Total Hip (Left) 0.794 -1.2 1.1 Osteopenia Femoral Neck (Right) 0.596 -2.3 0.2 Osteopenia Total Hip (Right) 0.781 -1.3 1.0 Osteopenia Total Hip Mean 0.787 -1.3 1.1 Osteopenia World Health Organization criteria for BMD impression classify patients as: Normal (T-score at or above -1.0), Osteopenia (T-score between -1.0 and -2.5), or Osteoporosis (T-score at or below -2.5). 10-year Fracture Risk(1): Major Osteoporotic Fracture 21% Hip Fracture 6.1% Reported Risk Factors: [place] (), Neck BMD=0.596, BMI=39.5, previous fracture (1) FRAX(R) Version 3.08. Fracture probability calculated for an untreated patient. Fracture probability may be lower if the patient has received treatment. Previous Exams: -- Region Exam Age BMD T-score BMD Change BMD Change Date g/cm2 vs Baseline vs Previous -- AP Spine (L1-L4) 01/21/2025 84 1.040 -0.1 5.2%* 5.2%* 05/16/2018 77 0.989 -0.5 Total Hip(Left) 01/21/2025 84 0.794 -1.2 -15.1%* -15.1%* 05/16/2018 77 0.935 -0.1 Total Hip(Right) 01/21/2025 84 0.781 -1.3 -3.2% -3.2% 05/16/2018 77 0.806 -1.1 -- *Denotes significance at 95% confidence level, LSC for AP Spine = 0.022 g/cm2, LSC for Total Hip = 0.027 g/cm2 Clinical Information Provided by Patient: Has had a low trauma fracture Has used the following medications: Vitamin D Patient maximum height was 63 Menopause Age: 47 No regular weight bearing exercise Onset of menses at age 15 Number of children 3 Impression: The patient has low bone mass, based on the Right Femoral Neck T-score. The patient has an estimated ten-year risk of hip fracture of 6.1% and an estimated ten-year risk of major fracture of 21%, based on the WHO FRAX algorithm. The patient has risk factors, including: previous fracture. The BMD for the Total Hip(Left) decreased, changing by -15.1% since the last DXA exam. Discussion: BONE DENSITY IS LOW AT ONE OR MORE SKELETAL SITES. THE PATIENT'S BMD AND CLINICAL RISK FACTORS CONTRIBUTE TO THIS PATIENT'S HIGH RISK OF FRACTURE. This patient's lowest T-score is low at one or more skeletal sites. It meets the World Health Organization's (WHO) criteria for “low bone mass” (T-score between -1.0 and -2.5). The patient's 10-year risk of hip fracture and 10 year risk of a major osteoporotic fracture as calculated by FRAX exceeds the threshold where pharmacological therapy is recommended by the National Osteoporosis Foundation (NOF). However, all treatment decisions require clinical judgment and consideration of individual patient factors, including patient preferences, comorbidities, previous drug use, risk factors not captured in the FRAX model (e.g., frailty, falls, vitamin D deficiency, increased bone turnover, interval significant decline in bone density) and possible under or overestimation of fracture risk by FRAX. The patient should follow a healthful lifestyle (good nutrition with adequate calcium and vitamin D, and appropriate weight-bearing exercise). Follow-Up: Consider a repeat BMD and Vertebral Fracture Assessment (VFA) exam in 2 years or sooner if medically necessary, to reassess this patient's status. Reported by: OSMIN on 01/28/2025 8:44:00 AM. Reviewed, dictated and finalized at location AYumiko ROGEL
== END 2025-01-21 13:24 | disposition home or self-care (01) ==
LOC: MICIMG 13:24
PROVIDERS: PCP Emergency Medicine; Visit Provider Emergency Medicine
DX: Z78.0 Asymptomatic menopausal state (principal); E55.9 Vitamin D deficiency, unspecified; M85.852 Other specified disorders of bone density and structure, left thigh; M85.851 Other specified disorders of bone density and structure, right thigh
CPT/HCPCS: 77080

== ENCOUNTER 2025-02-05 14:00 | Outpatient (RCR) | payer MEDICARE, SELFPAY ==
--- NOTE | 2025-01-09 13:30 | OPREHPOC ---
Outpatient Therapy Plan of Care This is a Multidisciplinary Plan of Care that may contain components documented by all disciplines (PT, OT, and ST.) PT Problem 1 PT Problem #1 Knowledge Deficit PT Goal 1 Goal / Goal Update *independent with HEP Target Visit 8 PT Problem 2 PT Problem #2 Impaired Strength PT Goal 1 Goal / Goal Update 1*increase strength of R and L LE to gross 4/5, to improve mobility and balance skills 2* with 2 minute walking test, pt NOT have lateral trunk motion with stance phase Target Visit 8 PT Problem 3 PT Problem #3 Impaired Functional Mobility PT Goal 1 Goal / Goal Update *improve standing balance and mobility skills: and decrease risk for falls 1* Ramirez balance/gait score of 51/56 2* 2 minute walking test distance of 425' Target Visit 8
--- NOTE | 2025-01-09 13:30 | PTOPEVAL1 ---
Assessment and note entered by Carolyn Alcantar, PT Evaluation Information Assessment Status Evaluation ICD-10 Condition Codes (PT) Difficulty Walking R26.2,Abnormalities of gait and mobility R26.9,Weakness R53.1 Onset August 2024 Subjective Information gradual increase in weakness of legs, no falls, but unsteady; do not use a cane or walker; was in the hospital about 1 year ago due to weakness and medical issues; had recent test on her legs- was told she has venous insufficiency, L leg more than R leg- wear compression socks activity: live alone, independent with self care and light home tasks; local daughter can assist PRN; pt drives and does shopping; does not do any fitness exercises, knees hurt so do not walk much; 3 entry steps to one level home Reported Pain Level Pain Score Self Report Additional Pain Score Comments bilateral knee pain 0-6/10; increase pain with walking ~ 10 minutes decrease pain: sit, rest, over the counter meds when shopping, always get a grocery cart to lean on and can walk longer in the store Assessment PT Clinical Summary Linda has the diagnosis of decreased gait and mobility skills. She reports gradual decline in mobility, without any falls, but unsteady. She lives alone and ambulates without an assistive device. Medical history includes: bilateral knee pain and arthritis, afib and on blood thinner; recent tests showed venous insufficiency in both legs, L more than R. Also has tinnitus and lightheaded/ dizzy at times. With the evaluation: 5 reps sit/stand time is 15= WNL; Ramirez balance score of 45/56-- difficulty with small base of support and single standing activity; 2 minute walking test distance of 385' with increase knee pain and fatigue. Weakness of hips- abduction most weakness bilateral. Skilled PT services are indicated for therapeutic exercises and activity to increase LE strength, gait and balance skills, with education for HEP and safety with mobility. Monitor knee pain and reports of lighthead/dizzy with activity. Plan of Care Interventions Gait Training,Neuro Re-education,Patient/Caregiver Education,Therapeutic Activities,Therapeutic Exercise PT Services Indicated Yes Treatment Frequency and 1-2x/wk for 8 visits Duration These treatments will address the objective and functional deficits as defined above. The patient will be advanced safely and appropriately in order for the patient to progress towards his/her prior level of function. Additional exercises will be introduced and as well as a comprehensive home exercise program upon discharge, if needed, ?to ensure carryover of functional gains achieved in the clinic. This treatment plan has been reviewed and agreement upon by the patient.
--- NOTE | 2025-02-09 11:40 | PCPTNOTE ---
pt called and canceled today's reeval appt, due to going to the ER.
--- NOTE | 2025-02-23 15:21 | OPREHPOC ---
Outpatient Therapy Plan of Care This is a Multidisciplinary Plan of Care that may contain components documented by all disciplines (PT, OT, and ST.) PT Problem 1 PT Problem #1 Knowledge Deficit PT Goal 1 Goal / Goal Update *independent with HEP 02-23-25 d/c pt stopped attending goals were not addressed Target Visit 8 PT Problem 2 PT Problem #2 Impaired Strength PT Goal 1 Goal / Goal Update 1*increase strength of R and L LE to gross 4/5, to improve mobility and balance skills 2* with 2 minute walking test, pt NOT have lateral trunk motion with stance phase 02-23-25 d/c pt stopped attending goals were not addressed Target Visit 8 PT Problem 3 PT Problem #3 Impaired Functional Mobility PT Goal 1 Goal / Goal Update *improve standing balance and mobility skills: and decrease risk for falls 1* Ramirez balance/gait score of 51/56 2* 2 minute walking test distance of 425' 02-23-25 d/c pt stopped attending goals were not addressed Target Visit 8
--- NOTE | 2025-02-23 15:22 | PTOPDC ---
Assessment and note entered by Carolyn Alcantar, PT Assessment Status Discharge - Pt Not Present ICD-10 Condition Codes (PT) Difficulty Walking R26.2,Abnormalities of gait and mobility R26.9,Weakness R53.1 Onset August 2024 Subjective Information pt was not seen this date. Assessment PT Clinical Summary Linda has received 7 PT treatments from January 09 to . She then stopped attending. Discharge PT. The goals were not addressed. Plan of Care PT Services Indicated No
== END 2025-02-24 09:25 | disposition home or self-care (01) ==
LOC: ANHPT 14:00
PROVIDERS: PCP Emergency Medicine; Visit Provider Emergency Medicine
DX: R26.89 Other abnormalities of gait and mobility (principal)
CPT/HCPCS: 97110; 97112; 97161; 97530

== ENCOUNTER 2025-02-09 10:25 | Emergency (ER) | payer MEDICARE, SELFPAY ==
--- NOTE | ~2025-02-09 | XR_ITS ---
EXAMINATION: XR chest 2V 02/09/2025 13:04 INDICATION: A. Fib. Exertional shortness of breath. PROCEDURE: 2 view chest COMPARISON: 09/04/2023 FINDINGS: The lungs are clear. Mild cardiomegaly. There are no pleural effusions. There is no pneumo thorax suspected. The lungs are hyperinflated which is consistent with, but not diagnostic of chroni c obstructive pulmonary disease. IMPRESSION: 1: NO ACUTE CARDIOPULMONARY DISEASE. Reviewed, dictated and finalized at location A.
--- NOTE | 2025-02-09 10:27 | ECG_ITS ---
Test Date: 2025-02-09 10:34:05 Measurements Intervals [place] Rate: 93 P: 0 CT: 0 QRS: 26 QRSD: 85 T: 52 QT: 349 QTc: 436 Interpretive Statements ATRIAL FIBRILLATION BORDERLINE ST ABNORMALITY- LAT/HIGH LAT LEADS ABNORMAL ECG No previous ECG available for comparison Electronically Signed On 02-09-2025 11:49:22 CDT by Ozzie Carter D.O.
[2025-02-09 10:30] VITALS: BP 148/84; PULSE 73; RESP 18; TEMP 36.4; O2SAT 98
--- OUTSIDE RECORDS SUMMARY | 2025-02-09 11:01 | XMS_ITS | Clinical Summary ---
Author Organization [facility] Address [address] [place] [address] Care Team Providers Care Supervisor Poultry Hatchery Name Role Phone Unavailable Primary Care Provider Unavailabl e Source Comments [facility],non-owned Affiliates and Associated Physician Practices is amultiple site organization consisting of ambulatory clinics and hospital sitesin [place], [place], [place] and [place]. This disclosure is being madepursuant to the Care Everywhere program and may not contain all information available regarding this patient. Last updated 18.[facility] Allergies No known active allergies Medications * Be aware that medications may not be up to date on this document. Alwaysverify current medications with the patient. METOPROLOL SUCCINATE ER PO Acti ve ATORVASTATIN CALCIUM PO Active LOSARTAN POTASSIUM-HCTZ PO Active aspirin (ASPIRIN) 81 MG tablet Take 81 mg by mouth once daily Active Family History Medical History Relation Name Comments Cancer - Prostate Father COPD - Chronic Obstructive Pulmonary Disease Mother Relation Name Status Comments Father Mother Social History Tobacco Use Types Packs/Day Years Used Date Smoking Tobacco: Never Smokeless Tobacco: Never Comments No Sex and Gender Information Value Date Recorded Sex Assigned at Not on file Legal Sex Female 1:09 PM CDT Gender Identity Not on file Sexual Orientation Not on file Last Filed Vital Signs Vital Sign Reading Time Taken Comments Blood Pressure 130/72 04/19/2019 11:08 AM CDT Pulse 56 04/19/2019 11:08 AM CDT Temperature 36.8 C (98.2 F) 04/19/2019 11:08 AM CDT Respiratory Rate 16 04/19/2019 11:08 AM CDT Oxygen Saturation 96% 04/19/2019 11:08 AM CDT Inhaled Oxygen Concentration - - Weight 88.5 kg (195 lb) 04/19/2019 11:08 AM CDT Height 152.4 cm (5') 04/19/2019 11:08 AM CDT Body Mass Index 38.08 04/19/2019 11:08 AM CDT Plan of Treatment Health Maintenance Due Date Last Done Comments BONE DENSITY TESTING 1940 DTAP/TDAP/TD VACCINES (1 - Tdap) 1958 PNEUMOCOCCAL VACCINE 50+ (1 of 1 - PCV) 1989 ZOSTER VACCINE (1 of 2) 1989 Respiratory Syncytial Virus (RSV) Vaccine Pt: or over 60 yrs (1 - 1-dose 75+ series) 2014 COVID-19 VACCINE ( - 2023-2 5 season) 2024 DEPRESSION SCREENING 09/10/2024 MEDICARE AWV CALENDAR YEAR 2024 INFLUENZA VACCINE (Season Ended) 2025 HEPATITIS B VACCINE Aged Out No longe r eligible based on patient's age to complete this topic HIB VACCINE Aged Out No longer eligi ble based on patient's age to complete this topic HPV VACCINE Aged Out No longer eligi ble based on patient's age to complete this topic MENINGOCOCCAL (Group B) VACC INE SHARED DECISION-MAKING Aged Out No longer eligibl e based on patient's age to complete this topic MENINGOCOCCAL GROUPS A/C/Y/W VACCINE Aged Out No longer eligible b ased on patient's age to complete this topic Insurance MEDICARE [facility] MEDICARE [facility]
--- OUTSIDE RECORDS SUMMARY | 2025-02-09 11:02 | XMS_ITS | Encounter Summary ---
Author Organization [facility] Facility Care Team Providers Care Bar Finish Operator Name Role Phone Brigette Carrasquillo MD Primary Care Provider Kristine Gonsales NP Primary Care Provider [phone] Anne Marie Vance MD Primary Care Provider Ty Vicente MD Unavailable [phone] Atif Walker MD, Alcides Schreiber. Unavailable [phone] Andrew Koehler MD Unavailable [phone] Rula Aldrich DO Unavailable [phone] Conner Ybarra MD Unavailable [phone] Juan Davis MD Primary Care Provide r Encounter Details Date Type Department Care Team (Latest Contact Info) Description 11/13/2014 Orders Only [facility] CLINCON[facility] ProviderJeremy MD [address] [place] [address] Social History Tobacco Use Types Packs/Day Years Used Date Smoking Tobacco: Never Assessed Comments Unknown Sex and Gender Information Value Date Recorded Sex Assigned at Not on file Legal Sex Female 3:34 AM SHOVELER Gender Identity Not on file Sexual Orientation Not on file documented as of this encounter Plan of Treatment Not on file documented as of this encounter Procedures Procedure Name Priority Date/Time Associated Diagnosis Comments CARDIOLOGY REPORT 03/02/2016 12: 00 AM CDT documented in this encounter Results * CARDIOLOGY REPORT (03/02/2016 12:00 AM CDT) Anatomical Region Laterality Modality Other Narrative 03/02/2016 12:00 AM CDT Ordered by an unspecified provider. us Historical Provider [facility] Final Result documented in this encounter Visit Diagnoses Not on filedocumented in this encounter Additional Health Concerns Infection Onset Date Last Indicated Resolved Time COVID: Suspected 05/12/2022 05/12/2022 05/12/2022 7:38 PM CDT COVID: Suspected 11/04/2024 11/04/2024 11/04/2024 4:31 PM SHOVELER documented as of this encounter Care Teams Bar Finish Operator Relationship Specialty Start Date End Date Brigette Carrasquillo MD [address] [facility] [address] [place] [address] PCP - General Family Medicine 01/08/19 01/08/19 Kristine Gonsales NP [address] [place] [address] PCP - General Nurse Practitioner 01/09/19 02/28/22 Anne Marie Vance MD [address] [place] [address] PCP - General Family Practice 03/01/22 07/22/24 Juan Davis MD [address] [place] [address] PCP - General Emergency Medicine 07/23/24 Ty Vicente MD [address] [place] [address] Consulting Physician Nephrology 02/03/22 Alcides Srivastava Jr., MD [address] [address] Referring Physician Cardiology 12/04/21 Andrew Koehler MD [address] [place] [address] Consulting Physician Otolaryngology 03/06/22 Rula Aldrich DO [address] [address] Consulting Physician Neurology 09/07/23 Conner Ybarra MD [address] [place] [address] Referring Physician Neurology 02/21/24 documented as of this encounter
--- OUTSIDE RECORDS SUMMARY | 2025-02-09 11:02 | XMS_ITS | Encounter Summary ---
Author Organization [facility] Facility Care Team Providers Care Staff Nurse Anesthetist Name Role Phone Brigette Carrasquillo MD Primary Care Provider Kristine Gonsales NP Primary Care Provider [phone] Anne Marie Vance MD Primary Care Provider Ty Vicente MD Unavailable [phone] Atif Walker MD, Alcides Schreiber. 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 Gender Identity Not on file Sexual Orientation [...] COVID: Suspected 11/04/2024 11/04/2024 11/04/2024 4:31 PM EVENT CREW TECHNICIAN documented as of this encounter Care Teams Staff Nurse Anesthetist Relationship Specialty Start Date End Date Brigette Carrasquillo MD [address] [facility] [address] [place] [address] PCP - General Family Medicine 01/08/19 01/08/19 Kristine Gonsales NP [address] [place] [address] PCP - General Nurse Practitioner 01/09/19 02/28/22 Anne Marie Vance MD [address] [place] [address] PCP - General Family Practice 03/01/22 07/22/24 Juan Davis MD [address] [place] [address] PCP - General Emergency Medicine 07/23/24 Ty Vicente MD [address] [facility] [address] [place] [address] Consulting Physician Nephrology 02/03/22 Alcides Srivastava Jr., MD [address] [address] Referring Physician Cardiology 12/04/21 Andrew Koehler MD [address] [place] [address] Consulting Physician Otolaryngology 03/06/22 Rula Aldrich DO [address] [address] Consulting Physician Neurology 09/07/23 Conner Ybarra MD [address] [place] [address] Referring Physician Neurology 02/21/24 documented as of this encounter
--- OUTSIDE RECORDS SUMMARY | 2025-02-09 11:02 | XMS_ITS | Continuity of Care Document ---
Author Organization [facility] Address [address] [place] [address] Insurance Providers Payer Plan Claims Address Claims Phone Policy Number Group Number Relation Employer Guarantor Name Guarantor Guarantor Address Guarantor Phone [facility] MANA[employer] D MEDICA RE ADV [facility] MANAG ED MEDIC ARE ADV [address] [address], [place] [address] tel:[phone] Self Linda Vanegas [address] [place] [address] MEDICA RE Medic are [address] [address], [place] [address] tel:[phone] Self Linda Johnsonr [address] [place] [address] [facility] [address], [place] [address] [phone] Self Linda Vanegas [address] [place] [id number] Problems Unknown Problems Results No Results Allergies, adverse reactions, alerts No known allergies and adverse reactions Immunizations Vaccine Route Date Status influenza Refused Medications No administered medications reported Vital Signs Date Vital Result Comment 11/24/2024 Inhaled Oxygen Concentration 21.0 % N Temperature 97.1 [degF] N Oxygen Saturation 99 % N Respiratory Rate 16 /min N Heart Rate 56 /min N Blood Pressure Systolic 162 mm[Hg] N Blood Pressure Diastolic 84 mm[Hg] N Body Height 60 [in_i] N Body Weight 182 [lb_av] N Body Mass Index 35.5 kg/m2 N Social History No smoking Hx information available
--- OUTSIDE RECORDS SUMMARY | 2025-02-09 11:02 | XMS_ITS | Encounter Summary ---
Author Organization [facility] Facility Care Team Providers Care Coil Repair Technician Name Role Phone Brigette Carrasquillo MD Primary Care Provider Kristine Gonsales NP Primary Care Provider [phone] Anne Marie Vance MD Primary Care Provider Ty Vicente MD Unavailable [phone] Atif Walker MD, Alcides Schreiber. 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 us Historical Provider Final Res ult documented in this encounter Visit Diagnoses Not on filedocumented in this encounter Additional Health Concerns Infection Onset Date Last Indicated Resolved Time COVID: Suspected 05/12/2022 05/12/2022 05/12/2022 7:38 PM CDT COVID: Suspected 11/04/2024 11/04/2024 11/04/2024 4:31 PM FACULTY MEMBER documented as of this encounter Care Teams Coil Repair Technician Relationship Specialty Start Date End Date Brigette Carrasquillo MD [address] [facility] 120 [place] [address] PCP - General Family Medicine 01/08/19 01/08/19 Kristine Gonsales NP [facility]1 [place] [address] PCP - General Nurse Practitioner 01/09/19 02/28/22 Anne Marie Vance MD [address] [place] [address] PCP - General Family Practice 03/01/22 07/22/24 Juan Davis MD [address] [place] [address] PCP - General Emergency Medicine 07/23/24 Ty Vicente MD 3 [facility] [address] [place] [address] Consulting Physician Nephrology 02/03/22 Alcides Srivastava Jr., MD [address] [address] Referring Physician Cardiology 12/04/21 Andrew Koehler MD [address] [place] [address] Consulting Physician Otolaryngology 03/06/22 Rula Aldrich DO [address] [address] Consulting Physician Neurology 09/07/23 Conner Ybarra MD 3 [place] [address] Referring Physician Neurology 02/21/24 documented as of this encounter
--- OUTSIDE RECORDS SUMMARY | 2025-02-09 11:02 | XMS_ITS | Encounter Summary ---
Author Organization [facility] Facility Care Team Providers Care Wrapper Opener Name Role Phone Brigette Carrasquillo MD Primary Care Provider Kristine Gonsales NP Primary Care Provider [phone] Anne Marie Vance MD Primary Care Provider Ty Vicente MD Unavailable [phone] Atif Walker MD, Alcides Schreiber. Unavailable [phone] Andrew Koehler MD Unavailable [phone] Rula Aldrich DO Unavailable [phone] Conner Ybarra MD Unavailable [phone] Juan Davis MD Primary Care Provide r Encounter Details Date Type Department Care Team (Latest Contact Info) Description 01/04/2016 Orders Only [facility] CLINCONV ProviderJeremy MD [address] [place] [address] Social History Tobacco Use Types Packs/Day Years Used Date Smoking Tobacco: Never Assessed Comments Unknown Sex and Gender Information Value Date Recorded Sex Assigned at Not on file Legal Sex Female 3:34 AM TELECOM COORDINATOR Gender Identity Not on file Sexual Orientation [...] COVID: Suspected 11/04/2024 11/04/2024 11/04/2024 4:31 PM TELECOM COORDINATOR documented as of this encounter Care Teams Wrapper Opener Relationship Specialty Start Date End Date Brigette Carrasquillo MD [address] [facility] 120 [place] [address] PCP - General Family Medicine 01/08/19 01/08/19 Kristine Gonsales NP [facility]1 [place] [address] PCP - General Nurse Practitioner 01/09/19 02/28/22 Anne Marie Vance MD [address] [place] [address] PCP - General Family Practice 03/01/22 07/22/24 Juan Davis MD [address] [place] [address] PCP - General Emergency Medicine 07/23/24 Ty Vicente MD 3 [facility] [address] [place] [address] Consulting Physician Nephrology 02/03/22 Alcides Srivastava Jr., MD [address] [address] Referring Physician Cardiology 12/04/21 Andrew Koehler MD [address] [place] [address] Consulting Physician Otolaryngology 03/06/22 Rula Aldrich DO [address] [address] Consulting Physician Neurology 09/07/23 Conner Ybarra MD 3 [place] [address] Referring Physician Neurology 02/21/24 documented as of this encounter
--- OUTSIDE RECORDS SUMMARY | 2025-02-09 11:02 | XMS_ITS | CONTINUITY OF CARE DOCUMENT ---
Author Name john lopez Address Unknown Organization [facility] Address [address] [place] [address] [address] [place] [address] Phone [phone] Care Team Providers Care Spacer Type Bar And Segment Name Role Phone SANDRA TORRES, MAX Unavailable [phone] MAX FLORES MD Unavailable INSURANCE PROVIDERS Payer name Policy type / Coverage type [place] red democrat ID [facility] [place] [id number] [place] Medicare [id number]
--- OUTSIDE RECORDS SUMMARY | 2025-02-09 11:02 | XMS_ITS | Encounter Summary ---
Author Organization [facility] Facility Care Team Providers Care Leather Cleaner Name Role Phone Brigette Carrasquillo MD Primary Care Provider Kristine Gonsales NP Primary Care Provider [phone] Anne Marie Vance MD Primary Care Provider Ty Vicente MD Unavailable [phone] Atif Walker MD, Alcides Schreiber. Unavailable [phone] Andrew Koehler MD Unavailable [phone] Rula Aldrich DO Unavailable [phone] Conner Ybarra MD Unavailable [phone] Juan Davis MD Primary Care Provide r Encounter Details Date Type Department Care Team (Latest Contact Info) Description 01/22/2014 Orders Only [facility] CLINCONV ProviderJeremy MD [address] [place] [address] Social History Tobacco Use Types Packs/Day Years Used Date Smoking Tobacco: Never Assessed Comments Unknown Sex and Gender Information Value Date Recorded Sex Assigned at Not on file Legal Sex Female 3:34 AM ENTERPRISE APPLICATION ADMINISTRATOR Gender Identity Not on file Sexual Orientation [...] COVID: Suspected 11/04/2024 11/04/2024 11/04/2024 4:31 PM ENTERPRISE APPLICATION ADMINISTRATOR documented as of this encounter Care Teams Leather Cleaner Relationship Specialty Start Date End Date Brigette Carrasquillo MD [address] [facility] 120 [place] [address] PCP - General Family Medicine 01/08/19 01/08/19 Kristine Gonsales NP [address] [place] [address] PCP - General Nurse Practitioner 01/09/19 02/28/22 Anne Marie Vance MD [address] [place] [address] PCP - General Family Practice 03/01/22 07/22/24 Juan Davis MD [address] [place] [address] PCP - General Emergency Medicine 07/23/24 Ty Vicente MD 3 [facility] [address] [place] [address] Consulting Physician Nephrology 02/03/22 Alcides Srivastava Jr., MD [address] [address] Referring Physician Cardiology 12/04/21 Andrew Koehler MD [address] [place] [address] Consulting Physician Otolaryngology 03/06/22 Rula Aldrich DO [address] [address] Consulting Physician Neurology 09/07/23 Conner Ybarra MD 3 [place] [address] Referring Physician Neurology 02/21/24 documented as of this encounter
--- OUTSIDE RECORDS SUMMARY | 2025-02-09 11:02 | XMS_ITS | Continuity of Care Document ---
Author Organization [facility] Address [address] [facility] [place] [address] Phone Care Team Providers Care Sewer Cleaner Name Role Phone Rosalio Dsouza MD Unavailable Unavailable Allergies, Adverse Reactions, Alerts Substance Reaction Status Criticality No Known Allergies Active No Inform ation Medications Medication Instructions Dosage Effective Dates (start - stop) Status Comments irbesartan 150 mg tablet take 1 tablet by oral route every day 150 MG - Active omeprazole 20 mg capsule,delayed release take 1 capsule by oral route every day before a meal as needed 20 MG - Active take PRN only for heartburn spironolactone 25 mg tablet take 1 tablet by oral route every day 25 MG - Active Lipitor 40 mg tablet take 1 tablet by oral route every day 40 MG - Active Coreg 25 mg tablet take 1 tablet by oral route 2 times every day with food 25 MG - Active Procedures Procedure Date OFFICE/OUTPATIENT VISIT, EST OFFICE/OUTPATIENT VISIT, EST PREV VISIT, NEW, 65 & OVER OFFICE/OUTPATIENT VISIT, NEW Advance Directives Directive Yes / No Effective Date File Name No Information Encounters Encounter Description Practice Location Reason(s) For Visit Diagnoses Date Provider Providers Copied on Encounter OFFICE/OUTPA TIENT VISIT, EST [facility], [address] [place], [place] [address] [place], [place], [id number], [place] tel:[phone] [facility] HTN (chief complaint) colon polyp1 (chief complaint) aorta1 (chief complaint) Venous insufficiencyPolyp of colonEssential (primary) hypertensionRenal diseaseAtherosclero sis of aorta 1 [address] [facility]. [address], [place], [place], [address] , [place]. tel:[phone] OFFICE/OUTPA TIENT VISIT, EST [facility], [address], [place], [place], [address], [place] tel:[phone] [facility] Medicine abd pain1 (chief complaint) glucose1 (chief complaint) low renal1 (chief complaint) venous insufficie ncy1 (chief complaint) HTN (chief complaint) Abdominal painEssential (primary) hypertensionOveract ronnie bladderRenal diseaseHyperglycemi aVenous insufficiency 1 [facility]. [address], [place], [place], [address] , [place]. tel:[phone] [facility], [address] [place], [address], [place] tel:[phone] [facility] No Information 1 [address]. [address], [place], [place], [address] , [place]. tel:[phone] PREV VISIT, NEW, 65 & OVER [facility], [address], [place], [place], [address], [place] tel:[phone] [facility] physical (chief complaint) Encounter for general adult medical exam w abnormal findingsRenal diseaseEssential (primary) hypertensionGoiterA therosclerosis of aortaAbdominal painOveractive bladder 1 [facility] Allan [address], [place], [place], [address] , [place]. tel:[phone] Family History Family Member Type Diagnosis Age At Onset No Information Payers Payer name Insurance type Covered green party ID Authoriza tion(s) No Information Social History Type Description Quantity Date Captured Comments Alcohol Use Details No Caffeine Use Details Unknown Tobacco Use Status Current non-smoker Smoking Status Never smoker Non-Smoking Tobacco Use Details : No Details Available : No Details Available Sex Female Vital Signs Date / Time: Height Weight BMI Pulse Rate Blood Pressure Temperature Respiratory Rate Body Surface Area Head Circumference BMI percentile Pulse Ox Inhaled Ox 12:07 PM 60.00 in 198.40 lbs 38.7 5 kg/m eter (2) 61 /min 162/80 mm[Hg] 97.4 F 18 /min Chief Complaint And Reason For Visit From encounter dated '03/01/2021 12:01'. HTN (chief complaint). Description: Pt has HTN Pt takes coreg, spironolactone and losartan but her bp is high today Pt denies any chest pain or headache. Pt denies any PND or orthopnea. pt notices worsening leg swelling. Pt denies any chest pain or sob. Pt states that she ate some crab dinner with high salt earlier this week. colon polyp1 (chief complaint). Description: Pt had colonoscopy done recently which showed tubular adenoma. Pt denies any GI symptoms or weight loss. aorta1 (chief complaint). 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 Pt supposes do cardiac MRI soon Pt denies any chest pain or palpitation. Pt is concerned about her renal function with cardiac MRi with co ntrast Plan Of Treatment Date Type Action Status Referral Ordered: COLONOSCOPY AND BIOPSY ordered History Of Present Illness Encounter Date Complaint History Of Prese nt Illness colon polyp1 Pt had colonosco py done recently which showed tubular adenoma. Pt denies any GI symptoms or weight loss. HTN Pt has HTN Pt ta kes coreg, spironolactone and losartan but her bp is high today Pt denies any chest pain or headache. Pt denies any PND or orthopnea. pt notices worsening leg swelling. Pt denies any chest pain or sob. Pt states that she ate some crab dinner with high salt earlier this week. aorta1 Pt has descendin g aortic plaque without rupture Pt has history of diastolic dysfunction with some PVCs Pt sees cardiology. Pt supposes do cardiac MRI soon Pt denies any chest pain or palpitation. Pt is concerned about her renal function with cardiac MRi with contrast abd pain1 Pt has mild mide pigastric abd pain and occasional GERD, which resolved completely with omeprazole. glucose1 Pt has mildly hi gh glucose but she did not do lab fasting Pt denies any polyuria, polydipsia. or neuropathy symptoms low renal1 Pt has borderlin e renal function Pt has normal UO venous insufficiency1 pt has chr onic LE dependent edema Pt denies any redness, warmth, claudication symptoms, calf pain. HTN Pt has been taki ng losartan and spironolactone and coreg and her bp is ok now. her renal function is ok. pt feels less swelling. Pt denies any chest pain or headache physical Pt needs annual physical ,Pt c/o intermittent sharp right side upper quadrant and right rib pain for almost 4 weeks. Pt denies any sob or postprandial pain pt states that the pain seems to be worse with movement Pt denies any calf pain Pt denies any recent travel or bedrest. Pt had normal abd ultrasound. Pt then presented to [place] [facility] on 10/27/20 for above concern and CTA of the chest showed ? ulceration of distal descending thoracic aortic plaque and she was transferred to [facility]. While at [facility] Pt was evaluated by vascular surgery and was told no signs of any plaque rupture or aortic ulceration. she was evaluated by cardiology and was treated for costochondritis. She developed LEANDRO due to contrast and her losartan and hctz was held and still held as of now. her renal function did recover towards discharging. She also had TTE and showed dilated LA with EF of 74 %. Pt currently denies any chest pain Pt is on oxybutynin for ? OAB. Pt denies any urinary urgency or frequency during the day .Pt states that she tends to wakes up at least 2-3 times at night to urinate Pt denies any sob .Pt does have chronic LE edema. Pt has history of diastolic dysfunction. Pt has some dry mouth. Pt states that since stopping HCTZ ,she notices worsening bilateral LE edema. Pt denies any chest pain or sob Instructions Date Instruction Additional Infor mation No Information Assessments Type Assessment Date assessment Venous insufficiency assessment Polyp of colon assessment Essential (primary) hypertension assessment Renal disease assessment Atherosclerosis of aorta 2020 Mental Status Date Cognitive Assessment Orientation - [place] ed to time, place, person, situation.
--- OUTSIDE RECORDS SUMMARY | 2025-02-09 11:02 | XMS_ITS | Encounter Summary ---
Author Organization [facility] Facility Care Team Providers Care Drier Unloader Name Role Phone Brigette Carrasquillo MD Primary Care Provider Kristine Gonsales NP Primary Care Provider [phone] Anne Marie Vance MD Primary Care Provider Ty Vicente MD Unavailable [phone] Atif Walker MD, Alcides Schreiber. Unavailable [phone] Andrew Koehler MD Unavailable [phone] Rula Aldrich DO Unavailable [phone] Conner Ybarra MD Unavailable [phone] Juan Davis MD Primary Care Provide r Encounter Details Date Type Department Care Team (Latest Contact Info) Description 03/22/2016 Orders Only [facility] CLINCONV ProviderJeremy MD [address] [place] [address] Social History Tobacco Use Types Packs/Day Years Used Date Smoking Tobacco: Never Assessed Comments Unknown Sex and Gender Information Value Date Recorded Sex Assigned at Not on file Legal Sex Female 3:34 AM NEUROPSYCHOLOGY DIVISION CHIEF Gender Identity Not on file Sexual Orientation Not on file documented as of this encounter Plan of Treatment Not on file documented as of this encounter Procedures Procedure Name Priority Date/Time Associated Diagnosis Comments SCAN - LABS 04/11/2016 12:00 AM CDT documented in this encounter Results * SCAN - LABS (04/11/2016 12:00 AM CDT) Narrative 04/11/2016 12:00 AM CDT Ordered by an unspecified provider. us Historical Provider Final Res ult documented in this encounter Visit Diagnoses Not on filedocumented in this encounter Additional Health Concerns Infection Onset Date Last Indicated Resolved Time COVID: Suspected 05/12/2022 05/12/2022 05/12/2022 7:38 PM CDT COVID: Suspected 11/04/2024 11/04/2024 11/04/2024 4:31 PM NEUROPSYCHOLOGY DIVISION CHIEF documented as of this encounter Care Teams Drier Unloader Relationship Specialty Start Date End Date Brigette Carrasquillo MD [address] [facility] 120 [place] [address] PCP - General Family Medicine 01/08/19 01/08/19 Kristine Gonsales NP [address] [place] [address] PCP - General Nurse Practitioner 01/09/19 02/28/22 Anne Marie Vance MD [address] [place] [address] PCP - General Family Practice 03/01/22 07/22/24 Juan Davis MD [address] [place] [address] PCP - General Emergency Medicine 07/23/24 Ty Vicente MD 3 [facility] [address] [place] [address] Consulting Physician Nephrology 02/03/22 Alcides Srivastava Jr., MD [address] [address] Referring Physician Cardiology 12/04/21 Andrew Koehler MD [address] [place] [address] Consulting Physician Otolaryngology 03/06/22 Rula Aldrich DO [address] [address] Consulting Physician Neurology 09/07/23 Conner Ybarra MD 3 [place] [address] Referring Physician Neurology 02/21/24 documented as of this encounter
--- OUTSIDE RECORDS SUMMARY | 2025-02-09 11:02 | XMS_ITS | Encounter Summary ---
Author Organization [facility] Address [address] [place] [address] Care Team Providers Care Pullman Clerk Name Role Phone Ty Vicente MD Unavailable [phone] Atif Walker MD, Alcides Bass Unavailable [phone] Andrew Koehler MD Unavailable [phone] Rula Aldrich DO Unavailable [phone] Conner Ybarra MD Unavailable [phone] Juan Davis MD Primary Care Provide r Encounter Details Date Type Department Care Team (Late st Contact Info) Description 01/03/2025 Results Follow-Up [facility] Con[facility]ient Care at [address] [address] Mili Sebastian PA [address] [place] [address] [address] [place] [address] Aerobic and anaerobic culture and gram stain Abscess Vaginal Social History Tobacco Use Types Packs/Day Years Used Date Smoking Tobacco: Never Smokeless Tobacco: Never Alcohol Use Standard Drinks/Week Comments Never 0 (1 standard drink = 0.6 oz pur e alcohol) [facility] Utilities Answer Date Recorded In the past 12 months has [employer] electric, gas, oil, or water company threatened to shut off services in your home? No 09/06/2023 Social Connection and Isolat ion Panel [NHANES] Answer Date Recorded In a typical week, how many times do you talk on the phone with family, friends, or neighbors? More than three times a week 09/06/2023 How often do you get togethe r with friends or relatives? More than three times a week 09/06/2023 How often do you attend chur ch or zoroastrian services? Never 09/06/2023 Do you belong to any clubs o r organizations such as gnosticism groups, unions, fraternal or athletic groups, or school groups? Yes 09/06/2023 How often do you attend meet ings of the clubs or organizations you belong to? More than 4 times per year 09/06/2023 Are you , , di vorced, , never , or living with a partner? 09/06/2023 AUDIT-C Answer Date Recorded Q1: How often do you have a drink containing alcohol? Never 05/23/2024 Q2: How many drinks containi ng alcohol do you have on a typical day when you are drinking? Patient does not drink Q3: How often do you have si x or more drinks on one occasion? Never 05/23/2024 Overall Financial Resource Strain (CARDIA) Answe r Date Recorded How hard is it for you to pa y for the very basics like food, housing, medical care, and heating? Not very hard 09/06/2023 PHQ-2 Answer Date Recorded PHQ-2 Total Score (If total score is 3 or more points, staff should administer the PHQ-9) 0 05/23/2024 Hunger Vital Sign Answer Date Recorded Within the past 12 months, y ou worried that your food would run out before you got the money to buy more. Never true 09/06/20 23 Within the past 12 months, t he food you bought just didn't last and you didn't have money to get more. Never true 09/06/2023 PRAPARE - Transportation Answer Date Re corded In the past 12 months, has l ack of transportation kept you from medical appointments or from getting medications? No 08/11 In the past 12 months, has l ack of transportation kept you from meetings, work, or from getting things needed for daily living? No 09/06/2023 Housing Stability Vital Sign Answer Rubin e Recorded In the last 12 months, was t here a time when you were not able to pay the mortgage or rent on time? No 09/06/2023 In the last 12 months, how many places have you lived? 1 09/06/2023 In the last 12 months, was t here a time when you did not have a steady place to sleep or slept in a alf (including now)? No 09/06/2023 Personal Safety Answer Date Recorded Have you ever been in or are you currently in a harmful physical or emotional relationship or is someone making you feel afraid or unsafe? Denies 09/05/2023 Comments No Sex and Gender Information Value Date Recorded Sex Assigned at Not on file Legal Sex Female 3:34 AM ORACLE APPLICATION CONSULTANT Gender Identity Not on file Sexual Orientation Not on file documented as of this encounter Ordered Prescriptions Prescription Sig Dispense Quantity Refills Last Filled Start Date End Date ciprofloxacin (CIPRO) 500 mg tablet Take 1 tablet (500 mg total) by mouth daily for 5 days 5 tablet 01/06/2025 01/11/2025 documented in this encounter Miscellaneous Notes * Result Encounter Note - Sayra Wilkes LPN - 01/06/2025 12:07 PM CDT Notified pt of their results and follow up instructions. Pt verbalized understanding. documented in this encounter Plan of Treatment Not on file documented as of this encounter Visit Diagnoses Not on filedocumented in this encounter Care Teams Pullman Clerk Relationship Specialty Start Date End Date Juan Davis MD [address] [facility] [place] [address] PCP - General Emergency Medicine 07/23/24 Ty Vicente MD 3 [facility] [address] [address] Consulting Physician Nephrology 02/03/22 Alcides Srivastava Jr., MD [address] [address] Referring Physician Cardiology 12/04/21 Andrew Koehler MD [address] [place] [address] Consulting Physician Otolaryngology 03/06/22 Rula Aldrich DO [address] [address] Consulting Physician Neurology 09/07/23 Conner Ybarra MD 3 [place] [address] Referring Physician Neurology 02/21/24 documented as of this encounter
--- OUTSIDE RECORDS SUMMARY | 2025-02-09 11:02 | XMS_ITS | Encounter Summary ---
Author Organization [facility] Care Team Providers Care Director Business Management Name Role Phone Brigette Carrasquillo MD Primary Care Provider Kristine Gonsales NP Primary Care Provider [phone] Anne Marie Vance MD Primary Care Provider Ty Vicente MD Unavailable [phone] Atif Walker MD, Alcides Schreiber. Unavailable [phone] Andrew Koehler MD Unavailable [phone] Rula Aldrich DO Unavailable [phone] Conner Ybarra MD Unavailable [phone] Juan Davis MD Primary Care Provide r Encounter Details Date Type Department Care Team (Latest Contact Info) Description 01/24/2014 Orders Only [facility] ProviderJeremy MD [address] [place] [id number] Social History Tobacco Use Types Packs/Day Years Used Date Smoking Tobacco: Never Assessed Comments Unknown Sex and Gender Information Value Date Recorded Sex Assigned at Not on file Legal Sex Female 3:34 AM [employer] Gender Identity Not on file Sexual Orientation [...] COVID: Suspected 11/04/2024 11/04/2024 11/04/2024 4:31 PM [employer] documented as of this encounter Care Teams Director Business Management Relationship Specialty Start Date End Date Brigette Carrasquillo MD [address] [facility] [address] [place] [address] PCP - General Family Medicine 01/08/19 01/08/19 Kristine Gonsales NP [address] [place] [id number] PCP - General Nurse Practitioner 01/09/19 02/28/22 Anne Marie Vance MD [address] [place] [id number] PCP - General Family Practice 03/01/22 07/22/24 Juan Davis MD [address] [place] [address] PCP - General Emergency Medicine 07/23/24 Ty Vicente MD [address] [facility] [address] [place] [address] Consulting Physician Nephrology 02/03/22 Alcides Srivastava Jr., MD [address] [address] Referring Physician Cardiology 12/04/21 Andrew Koehler MD [address] [place] [address] Consulting Physician Otolaryngology 03/06/22 Rula Aldrich DO [address] [address] Consulting Physician Neurology 09/07/23 Conner Ybarra MD [address] [place] [address] Referring Physician Neurology 02/21/24 documented as of this encounter
--- OUTSIDE RECORDS SUMMARY | 2025-02-09 11:02 | XMS_ITS | Clinical Summary ---
Author Organization [facility] Address [address] [place] [address] Care Team Providers Care Surgical Nurse Name Role Phone Ty Vicente MD Unavailable [phone] Atif Walker MD, Alcides Bass Unavailable [phone] Andrew Koehler MD Unavailable [phone] Rula Aldrich DO Unavailable [phone] Conner Ybarra MD Unavailable [phone] Nisa Rabago MD Primary Care Provide r Allergies Active Allergy Reactions Criticality Noted Date Comments Nifedipine Other (See comments) Low 12/05/2022 Caused headache and pounding in head Medications ascorbic acid (VITAMIN C) 100 mg tablet Take 1 tablet (100 mg total) by mouth daily Active cholecalciferol (VITAMIN D-3) 2000 unit tablet Take by mouth daily Active acetaminophen (TYLENOL) 325 mg tabletIndicatio ns:Fever,Pain Take 2 tablets (650 mg total) by mouth every 4 (four) hours as needed for pain 60 tablet 1 Active Eliquis 2.5 mg tablet Take 1 tablet (2.5 mg total) by mouth 2 (two) times a day 2 Active hydroCHLOROthia zide (HYDRODIURIL) 25 mg tablet Take 1 tablet (25 mg total) by mouth daily 2 Active losartan (COZAAR) 50 mg tablet Take 1 tablet (50 mg total) by mouth 2 (two) times a day 3 Active carvediloL (COREG) 12.5 mg tablet Take 1 tablet (12.5 mg total) by mouth 2 (two) times a day with meals 3 Active cloNIDine (CATAPRES) 0.1 mg tabletIndicatio ns:hypertension Take 1 tablet (0.1 mg total) by mouth 2 (two) times a day as needed for high blood pressure Take as needed if systolic blood pressure is over 170. Active atorvastatin (LIPITOR) 40 mg tablet Take 1 tablet (40 mg total) by mouth daily Active omeprazole 20 mg tablet,delayed release (DR/EC) Take 1 tablet (20 mg total) by mouth daily as needed (indigestion, stomach upset) Active hydrALAZINE (APRESOLINE) 50 mg tablet Take 1.5 tablets (75 mg total) by mouth 3 (three) times a day 450 tablet 1 4 Active ciprofloxacin (CIPRO) 500 mg tablet Take 1 tablet (500 mg total) by mouth daily for 5 days 5 tablet 5 01/12/20 25 Active Problems Problem Noted Date Diagnosed Date Severe obesity 11/28/2024 Vaccine refused by patient 05/23/2024 Assessment & Plan (05/23/2024 2:14 PM CDT): Discussed recommendation for yearly flu vaccine as well as COVID vaccine. Discussed recommendation for pneumococcal vaccine. Patient defers all these today IGT (impaired glucose tolerance) 04/14/2024 Peripheral arterial disease 12/12/2023 Overview (02/26/2024): Vascular calcifications and lower extremities noted on imaging incidentally previously Assessment & Plan (01/06/2025 12:19 PM CDT): Moderate occlusive disease to the left lower extremity. At this time no life- limiting claudication rest pain or wounds. Continue risk factor modification, recommend 81 mg ASA, continue statin therapy. Follow up in 6-12 months repeat noninvasives testing. Assessment & Plan (12/12/2023 10:03 AM CDT): Incidentally noted on recent knee x-rays. Discussed signs and symptoms of claudication. Continue risk factor modification. Given patient was not previously felt a candidate for vascular intervention for her renal arterial stenosis we will defer referral for assessment for potential intervention as long as remains asymptomatic Mild recurrent major depression 10/04/2023 Assessment & Plan (05/23/2024 2:13 PM CDT): Chronic. Mood a little better lately. Never started the SSRI. We will monitor. Assessment & Plan (11/21/2023 2:43 PM CDT): Chronic. Could you slight improvement. Patient is hesitant to start previously ordered SSRI. Encouraged her to consider starting Lexapro. Otherwise encouraged to consider counseling. We will monitor Assessment & Plan (10/04/2023 6:42 PM EQUIPMENT RECORDS SUPERVISOR): Patient does admit to degree of mild depression and loneliness. Hopefully the escitalopram will help. She is encouraged to use her support system. She would likely benefit from some counseling Anemia of chronic disease 06/14/2023 Assessment & Plan (11/21/2023 2:47 PM CDT): Chronic. Leonard primarily related to her chronic kidney disease previously. We will monitor least yearly Assessment & Plan (10/04/2023 6:42 PM EQUIPMENT RECORDS SUPERVISOR): Patient has a degree of chronic anemia due to chronic illness/renal disease. It has been stable. She follows with Nephrology Assessment & Plan (07/03/2023 6:59 PM CDT): Chronic. Low-level anemia has been stable. Prior labs were negative for anemia due to iron-deficiency Assessment & Plan (06/14/2023 6:47 PM CDT): Patient is a degree of very low-grade mild anemia. Previous iron studies is assessment has been consistent with anemia of chronic kidney disease. She does not have significant iron-deficiency Class 2 severe obesity due t o excess calories with serious comorbidity and body mass index (BMI) of 35.0 to 35.9 in adult 03/07/2023 Assessment & Plan (05/23/2024 2:13 PM CDT): Chronic. Weight stable. Monitor. Encouraged healthy diet and lifestyle Assessment & Plan (12/12/2023 10:02 AM CDT): Chronic. Suboptimally controlled. Slightly worse since last visit. Encouraged patient to work on gradual exercise as tolerated, healthy diet and weight loss Assessment & Plan (11/21/2023 2:46 PM CDT): Chronic. Suboptimally controlled. Encouraged healthy diet and exercise as able. Monitor weight Assessment & Plan (10/04/2023 6:41 PM EQUIPMENT RECORDS SUPERVISOR): Chronic. Suboptimally controlled. Patient is working on diet and lifestyle. Encouraged her to keep up the good work Assessment & Plan (07/03/2023 7:00 PM CDT): Chronic. Suboptimally controlled. Encouraged healthy diet, exercise, weight loss Assessment & Plan (06/14/2023 6:45 PM CDT): Suboptimally controlled. We did encouraged healthy diet and exercise to help improve blood pressure Assessment & Plan (05/02/2023 6:02 PM CDT): Chronic. Suboptimally controlled. Ideally would want her to lose weight but we are avoiding pushing for aggressive weight loss given her age and comorbid medical issues not wanting to cause too much stress on her system JOHN (generalized anxiety disorder) 03/07/2023 Assessment & Plan (05/23/2024 2:13 PM CDT): Chronic. Mood a little better lately. Never started the SSRI. We will monitor. Assessment & Plan (11/21/2023 2:46 PM CDT): Chronic. Needs improvement. Encouraged her to consider starting the previously ordered Lexapro. Alternatively she was encouraged to consider formal counseling. Likely does contribute some to her resistant hypertension episodes Assessment & Plan (10/04/2023 6:42 PM EQUIPMENT RECORDS SUPERVISOR): Patient has a had a degree of chronic anxiety mild depression. These are likely contributing factors to her resistant blood pressure and her blood pressure fluctuations. She also may have a degree of somatization due to her anxiety. After discussion patient is finally agreeable to consider trying a medication to try helping her mood. She would like something very low-dose it is just once a day. After discussion of risks and benefits she would we agree to do a trial of Lexapro 5 mg daily. She is advised if she does not tolerate it to let me know and we can always consider an alternative medication. We did discuss option to also consider buspirone 5 mg twice daily but she prefers the once-a-day option if available Assessment & Plan (07/03/2023 6:59 PM CDT): Chronic. Suboptimally controlled. Did discuss recommendation to consider potentially starting on a low-dose Lexapro or something like BuSpar to see if we could provide some benefit for the anxiety. Patient is not really interested in anxiety medication currently. Strongly encouraged her to consider counseling. Needs to work on coping strategies. I do suspect a degree of chronic anxiety is likely contributing to the resistant hypertension. We did discuss with patient today Assessment & Plan (06/14/2023 6:46 PM CDT): Patient does have a degree of mild anxiety but she feels that a lot of the elevations are not related to anxiety. We will need to monitor mood. If concerns that anxieties and main contributing to hypertension we may want to consider starting on anxiety medication in the future Assessment & Plan (05/02/2023 3:35 PM CDT): Chronic. Mild. Denies severe symptoms. Monitor Chronic anticoagulation 01/30/2023 Assessment & Plan (05/23/2024 2:14 PM CDT): Chronic. Denies bleeding issues. Monitor. Continue NOAC for stroke prevention in AFib Assessment & Plan (11/21/2023 2:46 PM CDT): Chronic. No signs of spontaneous bleeding. Bleeding precautions recommended. We did discussed caution with combination of antiplatelet agent and NOAC but for stroke prevention benefits may be beneficial still to continue Assessment & Plan (10/04/2023 6:41 PM EQUIPMENT RECORDS SUPERVISOR): Chronic. On anticoagulation for her underlying AFib. Bleeding precautions recommended Assessment & Plan (05/02/2023 6:02 PM CDT): Chronic for AFib. Bleeding precautions recommended Renal cyst, left 06/14/2022 Renal artery stenosis 09/14/2021 Assessment & Plan (12/12/2023 10:01 AM CDT): Chronic. Saw vascular and Nephrology. Was not a candidate for surgical intervention. Continue risk factor modification. Keep appointment with nephrology coming up in the near future Assessment & Plan (11/21/2023 2:45 PM CDT): Chronic. Previously evaluated by Nephrology and vascular. Not felt to be a surgical candidate given her age and associated medical comorbidities. Assessment & Plan (10/04/2023 6:40 PM EQUIPMENT RECORDS SUPERVISOR): Chronic. Had evaluation by vascular previously. Due to her medical comorbidities she has not felt to be a surgical candidate. It is likely contributing some to her resistant hypertension Assessment & Plan (07/03/2023 6:59 PM CDT): Chronic. Was not felt to be a surgical candidate given her medical comorbidities so is recommended for just observation for now Assessment & Plan (06/14/2023 6:45 PM CDT): Chronic. Untreated. Remains on high-intensity statin. She was not felt to be a surgical candidate her previous assessment by vascular surgery. However, this can be contributing some to her elevated blood pressure issues Assessment & Plan (05/02/2023 6:01 PM CDT): Chronic. Previously saw vascular and was not felt to be a good surgical candidate given her medical issues and age. They recommended just medical management. This likely does contribute some to her resistant hypertension Iliac artery aneurysm, left 09/14/2021 Assessment & Plan (10/04/2023 6:40 PM EQUIPMENT RECORDS SUPERVISOR): Previously noted. Intervention was deferred due to her medical comorbidities Mixed stress and urge urinary incontinence 08/08 Assessment & Plan (05/02/2023 6:01 PM CDT): Chronic. Patient uses a pure wick system at night. She notes significant output which is likely related to the reabsorption of her venous insufficiency/edema during the evening when her legs are elevated. Patient was encouraged to elevate legs during the day Chronic kidney disease, stage 3b 11/12/2020 Assessment & Plan (05/23/2024 2:12 PM CDT): Chronic. Renal function has been relatively stable. Monitor. Avoid NSAIDs and dehydration. Blood pressure has been better the last couple visits Chemistry Lab Results Component Value Date SODIUM 139 04/01/2024 POTASSIUM 4.8 04/01/2024 CHLORIDE 105 04/01/2024 CO2 27 04/01/2024 ANIONGAP 7 04/01/2024 BUNSER 19 04/01/2024 CREATININE 1.17 (H) 04/01/2024 GLUCOSE 86 04/01/2024 CALCIUM 9.0 04/01/2024 BILITOT 0.4 04/01/2024 PROTEIN 6.2 09/06/2020 ALBUMIN 3.8 04/01/2024 GFRNAA 46 (L) 04/01/2024 ALKPHOS 132 (H) 04/01/2024 AST 34 04/01/2024 ALT 22 04/01/2024 PHOS 3.7 09/07/2023 MAGNESIUM 1.9 08/25/2022 Assessment & Plan (12/12/2023 10:01 AM CDT): Chronic. Has been stable on recent labs. Patient is to get updated lab work as ordered by her business analyst intern. She is advised to avoid nonsteroidal anti- inflammatory drugs. Patient has known renal artery stenosis but was not felt to be a surgical candidate per vascular evaluation Assessment & Plan (11/21/2023 2:44 PM CDT): Chronic. Last renal function was slightly better than her prior baseline. Still borderline between chronic kidney disease stage IIIA and 3B. Avoid dehydration and use of nonsteroidals. We will continue to monitor this periodically Assessment & Plan (10/04/2023 6:39 PM EQUIPMENT RECORDS SUPERVISOR): Chronic. Follows with Nephrology. They are just monitoring Assessment & Plan (07/03/2023 6:58 PM CDT): Chronic kidney disease has been relatively stable. This has limited some of the medications we can use. She does have a business analyst intern. We do have to be cautious with increasing risk for hyperkalemia with certain medications Assessment & Plan (06/14/2023 6:45 PM CDT): Chronic. GFR has gradually decreased over the last year. She sees Nephrology who is just monitoring Assessment & Plan (05/02/2023 3:35 PM CDT): Chronic. Renal function slightly improved after decrease in hydrochlorothiazide dose. Monitor. Patient has a business analyst intern PVC's (premature ventricular contractions) 11/12 Assessment & Plan (10/04/2023 6:40 PM EQUIPMENT RECORDS SUPERVISOR): Chronic. Remains on carvedilol for blood pressure and symptomatic control. Has previously had significant bradycardia with higher doses SAUMYA on CPAP 09/24/2020 Assessment & Plan (05/23/2024 2:13 PM CDT): Chronic. Continue cpap Assessment & Plan (11/21/2023 2:45 PM CDT): Chronic. Compliant with CPAP. Continue Assessment & Plan (10/04/2023 6:40 PM EQUIPMENT RECORDS SUPERVISOR): Chronic. Patient reports good compliance with use of CPAP so less likely a contributing factor to her resistant hypertension Assessment & Plan (06/14/2023 6:46 PM CDT): Chronic. On CPAP. Reports good compliance. Reports the quality sleep with her CPAP Gastroesophageal reflux disease 04/29/2019 H/O partial thyroidectomy 02/11/2019 Resistant hypertension 01/13/2019 Assessment & Plan (01/06/2025 12:19 PM CDT): Hypertensive this morning, continue hydrochlorothiazide and losartan Assessment & Plan (05/23/2024 2:11 PM CDT): Chronic. HTN controlled. Cont prescription Rx as indicated in HPI under HTN diagnosis. Low sodium diet (DASH or Mediterranean), exercise, wt loss (if over weight) discussed Assessment & Plan (12/12/2023 10:00 AM CDT): Chronic. Has been difficult to control. Given multiple drug intolerances cardiology and I have decided to target a goal of less than 150 over 90. Blood pressure is acceptable for that control we will continue on current blood pressure medications. Assessment & Plan (11/21/2023 2:44 PM CDT): Chronic. Control is fair. Given patient has had issues with difficult to control blood pressure as well as orthostatic symptoms we are tolerating a blood pressure goal of around 150-140 systolic. Patient does have a component of renal artery hypertension that is likely contributing but was not felt to be a surgical candidate when seen by vascular specialist Assessment & Plan (10/04/2023 6:39 PM EQUIPMENT RECORDS SUPERVISOR): Chronic. Patient has a history of multiple drug intolerance. Her blood pressure has been very difficult to control. I suspect a component of her fluctuating blood pressures and resistant hypertension have been related to her uncontrolled anxiety. After discussion today patient is willing to try a SSRI at a very low dose with caution. We will see how this helps address her blood pressure. Patient does have a degree of renal artery stenosis that is likely contributing to the blood pressure as well. Due to her comorbid medical conditions vascular previously felt she was not a surgical candidate for intervention for this Assessment & Plan (07/03/2023 6:58 PM CDT): Patient has had very difficult to control hypertension. She has had multiple drug intolerances. Previously intolerant of 2 different calcium channel blockers. On hydrochlorothiazide 12.5 mg daily but is intolerant of dose increases. She is maxed out on losartan 50 mg twice daily. She is on carvedilol 12.5 mg twice daily. On attempts to increase the dose further she had worsening bradycardia which is why she was decreased back to 12.5 mg b.i.d.. She is been tolerating the hydralazine 75 mg 3 times a day. Blood pressure is not significantly improved but patient is struggling with increasing anxiety since last visit and some dietary indiscretion. She does have an appointment to see a dietitian but is not until August. We did give her some brief dietary education on handout today. I really do want patient to try to work on addressing her anxiety issues as I think this may be a contributor to the resistant hypertension in the worsening control despite the medication adjustment after last visit. Patient is encouraged to consider counseling. She is not really interested in medication for anxiety currently Patient does have a known degree of renal artery stenosis but this was not felt to be a surgical candidate per vascular surgery evaluation previously. The renal artery stenosis likely is contributing some to her blood pressure issues. She was previously intolerant of spironolactone given worsening hyperkalemia so this is being avoided. Patient does have known SAUMYA but she reports good compliance with her CPAP Assessment & Plan (06/14/2023 6:44 PM CDT): Patient has had very difficult to control hypertension. She has had multiple drug intolerances. Previously intolerant of 2 different calcium channel blockers. On hydrochlorothiazide 12.5 mg daily but is intolerant of dose increases. She is maxed out on losartan 50 mg twice daily. She is on carvedilol 12.5 mg twice daily. On attempts to increase the dose further she had worsening bradycardia which is why she was decreased back to 12.5 mg b.i.d.. She is been tolerating the hydralazine 50 mg 3 times a day. After discussion patient is agreeable with attempts to increase the hydralazine to 75 mg 3 times a day. We will continue use of p.r.n. clonidine for extreme elevations but we hope to avoid use of this given side effect profile in the elderly and her already being on a beta-juani. Patient does have a known degree of renal artery stenosis but this was not felt to be a surgical candidate per vascular surgery evaluation previously. The renal artery stenosis likely is contributing some to her blood pressure issues. She was previously intolerant of spironolactone given worsening hyperkalemia so this is being avoided. Patient does have known SAUMYA but she reports good compliance with her CPAP Given the resistant nature of hypertension with a degree of episodic fluctuation I do worry that there may be some dietary contribution. Given patient has a known diagnosis of CKD stage 3 which appears to progress to 3B she would benefit from seeing a program management analyst for dietary consult in regards to the chronic kidney disease as well as the blood pressure. Referral provided Assessment & Plan (05/02/2023 6:01 PM CDT): Chronic. Borderline control. History of multiple drug intolerance. We will continue current medications. Monitor. May have a degree of elevation due to anxiety. We have been tolerating a blood pressure goal of less than 150/90 given she feels relatively unwell when the blood pressure is in the 130s or below Mixed hyperlipidemia 01/13/2019 Assessment & Plan (01/06/2025 12:19 PM CDT): Stable continue Lipitor Assessment & Plan (05/23/2024 2:12 PM CDT): Chronic. Tolerates her cholesterol medication. Continue. LDL at goal Resulted in the Past 12 Months 04/01/24 1230 CHOL 120 TRIG 122 HDL 46 LDLCALC 50 Assessment & Plan (12/12/2023 10:01 AM CDT): Chronic. Tolerates her cholesterol medication. Encouraged her to continue to help decrease risk of if it is due to her renal artery stenosis and recently indicated peripheral arterial disease found on knee x-rays Assessment & Plan (11/21/2023 2:45 PM CDT): Chronic. Tolerates cholesterol medication. Continue. LDL goal is less than 70 Assessment & Plan (10/04/2023 6:40 PM EQUIPMENT RECORDS SUPERVISOR): Chronic. Remains on atorvastatin for cholesterol. She notes some hand cramps but otherwise did advise frequent muscle cramps Assessment & Plan (07/03/2023 6:59 PM CDT): Chronic. Tolerates atorvastatin. Continue Assessment & Plan (06/14/2023 6:45 PM CDT): Chronic. Remains on atorvastatin Assessment & Plan (05/02/2023 6:00 PM CDT): Chronic. Tolerates prescription medication. 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 Following with Cardiology. No signs of decompensation. Assessment & Plan (11/21/2023 2:43 PM CDT): Chronic. Following with Cardiology. No signs of decompensation. She will plan to eventually switch over to [facility] water valve repairer after her current water valve repairer retires in a few months Assessment & Plan (10/04/2023 6:38 PM EQUIPMENT RECORDS SUPERVISOR): Chronic. Follows with Cardiology. Her water valve repairer is retiring so will likely plan to transition to [facility] water valve repairer for more definitive management long-term Assessment & Plan (05/02/2023 3:35 PM CDT): Chronic. Continue medication and care per Cardiology Diastolic dysfunction 03/02/2016 Assessment & Plan (05/23/2024 2:10 PM CDT): Chronic. Compensated. Continue current medication Assessment & Plan (11/21/2023 2:43 PM CDT): Chronic. Compensated. Continue current medication Assessment & Plan (10/04/2023 6:42 PM EQUIPMENT RECORDS SUPERVISOR): Patient has a degree of chronic diastolic dysfunction. She follows with Cardiology. Continue care per specialist Assessment & Plan (07/03/2023 6:57 PM CDT): Compensated. Continue care per Cardiology Assessment & Plan (06/14/2023 6:41 PM CDT): Chronic. Compensated. Follows with cardiology Paroxysmal atrial fibrillation 03/02/2016 Assessment & Plan (05/23/2024 2:10 PM CDT): Chronic. Continue beta-juani and DOAC. Stroke precautions recommended Assessment & Plan (11/21/2023 2:44 PM CDT): Chronic. Continue beta-juani and NOAC. Stroke precautions recommended Assessment & Plan (10/04/2023 6:38 PM EQUIPMENT RECORDS SUPERVISOR): Patient has a history of proximal atrial fibrillation. Minimal symptoms recently. Continue care per water valve repairer Assessment & Plan (07/03/2023 6:57 PM CDT): Chronic. Stable. Continue care per Cardiology Assessment & Plan (06/14/2023 6:42 PM CDT): Remains stable. Patient is on carvedilol and Eliquis. Follows with cardiology Assessment & Plan (05/02/2023 6:01 PM CDT): Chronic. Controlled. Continue medication and care per Cardiology Resolved Problems Problem Noted Date Diagnosed Date Resolved Date TIA (transient ischemic attack) 09/05/2023 10/04/2023 Chest pain 10/23/2020 04/03/2022 Palpitations 08/04/2019 04/03/2022 Dizziness 06/20/2016 04/03/2022 Obesity 03/08/2016 05/02/2023 Dyslipidemia 03/02/2016 03/06/2022 Heart murmur 03/02/2016 10/04/2023 Encounters Date Type Department Care Team Description 01/03/2025 Results Follow-Up [facility] at [address] [address] Mili Sebastian PA Aerobic and anaerobic culture and gram stain Abscess Vaginal 12/31/2024 10:45 AM CDT Office Visit [facility] at [address] [place] [address] Enrique Jara MD Peripheral arterial disease (Primary Dx); Mixed hyperlipidemia; Resistant hypertension 12/31/2024 Orders Only [facility] at [address] [address] Enrique Jara MD Atherosclerosis of 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 (Primary Dx) 12/30/2024 5:56 PM CDT - 12/30/2024 11:59 PM CDT Hospital Encounter [address] [address] Abscess of right genital labia Discharge Disposition: Discharge to home or self care 12/30/2024 11:15 AM CDT Office Visit [facility] at [address] [id number] Paola Rod NP Abscess of right genital labia (Primary Dx) 12/19/2024 11:15 AM CDT Ancillary Procedure [facility] at [address] [address] Paroxysmal atrial fibrillation (HCC); Aortic valve sclerosis 12/17/2024 4:22 PM CDT - 12/17/2024 11:59 PM CDT Hospital Encounter [address] [address] Hyperlipemia Discharge Disposition: Discharge to home or self care 12/17/2024 9:00 AM CDT Lab [facility] Outpatient Lab at [address] [id number] Hyperlipemia (Primary Dx) 12/16/2024 Results Follow-Up [facility] Cardiology at [address] [phone] Blake Lee MD US Arterial Doppler Lower Extremity Bilateral, Transthoracic Echo (TTE) Complete W Doppler/CF 12/10/2024 1:00 PM CDT Ancillary Procedure [facility] Vascular and Vein Surgery at [address] [phone] Peripheral arterial disease 11/28/2024 11:15 AM CDT Office Visit [facility] Cardiology at [address] [place] [address] Blake Lee MD Paroxysmal atrial fibrillation (HCC) (Primary Dx); Peripheral arterial disease; Mixed hyperlipidemia; Aortic valve sclerosis; Resistant hypertension; Renal artery stenosis; PVC's (premature ventricular contractions); Chronic anticoagulation; Chronic kidney disease, stage 3b (HCC); SAUMYA on CPAP; Severe obesity (HCC) from Last 3 Months Immunizations Immunization Administration Dates Next Due Influenza, Unspecified 05/23/2024(Deferr ed: Patient Refused),09/10/2023(Deferred: Patient Refused),09/10/2022(Deferred: Patient Refused) Pneumococcal Conjugate Pcv20 05/23/2024(Deferred : Patient Refused) Surgical History Surgery Date Site/Laterality Comments THYROIDECTOMY, PARTIAL Left Medical History Medical History Date Comments Heart murmur HTN (hypertension) HLD (hyperlipidemia) Diastolic dysfunction Aortic valve stenosis Osteoarthritis Thyroid disease Atrial fibrillation (HCC) CKD (chronic kidney disease) Goiter Family History Medical History Relation Name Comments Prostate cancer Father Arthritis Mother Lung cancer Mother Relation Name Status Comments Father Mother Social History Tobacco Use Types Packs/Day Years Used Date Smoking Tobacco: Never Smokeless Tobacco: Never Tobacco Cessation:Counseling Given: Not Answered Alcohol Use Standard Drinks/Week Comments Never 0 (1 standard drink = 0.6 oz pur e alcohol) [facility] Utilities Answer Date Recorded In the past 12 months has [employer], gas, oil, or water [employer] threatened to shut off services in your [...] often do you attend chur ch or quaker services? Never 09/06/2023 Do you belong to any clubs o r organizations such as nondenominational groups, unions, fraternal or athletic groups, or [...] place to sleep or slept in a nursing home (including now)? No 09/06/2023 Personal Safety Answer Date Recorded Have you ever been in or are you currently in a harmful physical or emotional relationship or is someone making you feel afraid or unsafe? Denies 09/05/2023 Comments No Sex and Gender Information Value Date Recorded Sex Assigned at Not on file Legal Sex Female 3:34 AM [employer] Gender Identity Not on file Sexual Orientation Not on file Obstetrics History Last Filed Vital Signs Vital Sign Reading Time Taken Comments Blood Pressure 172/74 12/31/2024 11:08 AM CDT Pulse 65 12/31/2024 11:08 AM CDT Temperature 36.7 C (98.1 F) 12/30/2024 10:59 AM CDT Respiratory Rate 16 12/30/2024 10:59 AM CDT Oxygen Saturation 98% 12/31/2024 11:08 AM CDT Inhaled Oxygen Concentration - - Weight 85.7 kg (189 lb) 12/31/2024 11:08 AM CDT Height 154.9 cm (5' 1) 12/31/2024 11:08 AM CDT Body Mass Index 35.71 12/31/2024 11:08 AM CDT Plan of Treatment Health Maintenance Due Date Last Done Comments Osteoporosis Screening-Bone Density Scan 1940 DTaP/Tdap/Td Vaccine (1 - Tdap) 1950 Pneumococcal vaccine 65+ (1 of 1 - PCV) 1989 Zoster Vaccine (1 of 2) 1989 Well Visit 65+ 02/20/2025 02/21/2024 Influenza Vaccine (Season Ended) 2025 Depression Screening 05/23/2025 05/23/2024, 04/14/2024, 08/15/2023, Additional history exists Fall Risk Assessment 05/23/2025 05/23/2024, 04/14/2024, 02/21/2024, Additional history exists Hepatitis B Screening Discontinued Procedures Procedure Name Priority Date/Time Associated Diagnosis Comments AEROBIC AND ANAEROBIC CULTURE AND GRAM STAIN Routine 12/30/2024 12:00 PM CDT Abscess of right genital labia TRANSTHORACIC ECHO (TTE) COMPLETE W DOPPLER/CF WO CONTRAST Routine 12/19/2024 11:29 AM CDT Paroxysmal atrial fibrillation (HCC) Aortic valve sclerosis EGFR Routine 12/17/2024 12:00 PM CDT Hyperlipemia VITAMIN D 25 HYDROXY Routine 12/17/2024 12:00 PM CDT Hyperlipemia LIPID PANEL Routine 12/17/2024 12:00 PM CDT Hyperlipemia COMPREHENSIVE METABOLIC PANEL Routine 12/17/2024 12:00 PM CDT Hyperlipemia US ARTERIAL DOPPLER LOWER EXTREMITY BILATERAL Schedule Routine, Read Routine (OP Routine) 12/10/2024 1:15 PM CDT Peripheral arterial disease from Last 3 Months Results * (ABNORMAL) Aerobic and anaerobic culture and gram stain Abscess Vaginal (12/30/2024 12:00 PM CDT) Direct Specimen Exam Stain: No polymorphonuclear leukocytes seen. Abundant Gram Positive Cocci Few Gram Negative Bacilli Comment:Testing performed by : [facility], [address] [place]., [address] Report Amended Report - Complete: Moderate Mixed genitourinary tract microorganisms. Includes the following: Few Providencia rettgeri Few Klebsiella pneumoniae Rare Bacteroides ovatus group (.) CERNER Comment:Testing performed by : [facility], [address] [place]., [address] Organism PROVIDENCIA RETTGERI [facility] Organism KLEBSIELLA PNEUMONIAE CERNER Organism MIXED GENITOURINARY TRACT MICROORGANISMS. CERNER Organism BACTEROIDES OVATUS GROUP CERNER Abscess (Vaginal) 12/30/2024 12:00 PM CDT 12/30/2024 10:07 PM CDT Narrative CERNER - 01/06/2025 11:19 AM CDT Specimen received on an ESwab. Testing performed by [facility] ([phone]) Specimens submitted from normally sterile body sites will have all bacterial morphotypes identified. Specimens that contain grossly mixed lev and/or are from body sites that are not normally sterile will be examined for Staphylococcus aureus, Pseudomonas aeruginosa, beta-hemolytic strep, vancomycin-resistant Enterococcus, Bacteroides, Parabacteroides, Clostridium perfringens and fungus. If any of these are isolated, the organism will be reported. Current interpretive data was last revised on 2019. Organism Antibiotic Method Susceptibility Providencia rettgeri Ampicillin INTERPRETATION Resistant Providencia rettgeri Cefazolin INTERPRETATION Resistant Providencia rettgeri Gentamicin INTERPRETATION Susceptible Providencia rettgeri Ampicillin with Sulbactam INTERPR ETATION Susceptible Providencia rettgeri Trimethoprim with Sulfamethoxazole INTERPRETATION Susceptible Providencia rettgeri Meropenem INTERPRETATION Susceptible Providencia rettgeri Cefepime INTERPRETATION Susceptible Providencia rettgeri Ciprofloxacin INTERPRETATION Susceptible Providencia rettgeri Ceftazidime INTERPRETATION Susceptible Providencia rettgeri Ceftriaxone INTERPRETATION Susceptible Providencia rettgeri Piperacillin/Tazobactam INTERPRET ATION Susceptible Providencia rettgeri Amikacin INTERPRETATION Susceptible Providencia rettgeri Aztreonam INTERPRETATION Susceptible Providencia rettgeri Imipenem INTERPRETATION Susceptible Providencia rettgeri Ertapenem INTERPRETATION Susceptible Providencia rettgeri Minocycline INTERPRETATION Resistant Providencia rettgeri Tobramycin INTERPRETATION Susceptible Providencia rettgeri Levofloxacin INTERPRETATION Susceptible Providencia rettgeri Doxycycline INTERPRETATION Resistant Klebsiella pneumoniae Ampicillin INTERPRETATION Resistant Klebsiella pneumoniae Cefazolin INTERPRETATION Susceptible Klebsiella pneumoniae Gentamicin INTERPRETATION Susceptible Klebsiella pneumoniae Ampicillin with Sulbactam INTERP RETATION Susceptible Klebsiella pneumoniae Trimethoprim with Sulfamethoxazole INTERPRETATION Susceptible Klebsiella pneumoniae Meropenem INTERPRETATION Susceptible Klebsiella pneumoniae Cefepime INTERPRETATION Susceptible Klebsiella pneumoniae Ciprofloxacin INTERPRETATION Susceptible Klebsiella pneumoniae Ceftazidime INTERPRETATION Susceptible Klebsiella pneumoniae Ceftriaxone INTERPRETATION Susceptible Klebsiella pneumoniae Piperacillin/Tazobactam INTERPRE TATION Susceptible Klebsiella pneumoniae Amikacin INTERPRETATION Susceptible Klebsiella pneumoniae Aztreonam INTERPRETATION Susceptible Klebsiella pneumoniae Imipenem INTERPRETATION Susceptible Klebsiella pneumoniae Ertapenem INTERPRETATION Susceptible Klebsiella pneumoniae Minocycline INTERPRETATION Susceptible Klebsiella pneumoniae Tobramycin INTERPRETATION Susceptible Klebsiella pneumoniae Levofloxacin INTERPRETATION Susceptible Klebsiella pneumoniae Doxycycline INTERPRETATION Susceptible us Paola Rod NP LAB MICROBIOLOGY - GENERAL ORDE KATHRYN Edited Result - Final [facility] [id number] Department [place] [address] * TRANSTHORACIC ECHO (TTE) COMPLETE W DOPPLER/CF WO CONTRAST (12/19/2024 11:29 AM CDT) LV EF 70-75 % CONS SCIMAGE Anatomical Region Laterality Modality Ultrasound 12/19/2024 11:0 0 AM CDT Narrative 12/19/2024 12:47 PM CDT [facility] [address], [address], [place] [address] P:[phone] P:[phone] Echocardiographic Report Patient Name: LINDA VANEGAS C : 1940 Study Date: 12/19/2024 11:00:22 AM Gender: F Tech: Location: [facility] Ref Provider: BLAKE LEE Height(Cm): 155 BSA: 1.92 Weight(Kg): 85.7 Heart Rate: 61 BP: 140 / 72 Quality: Good Order Provider: BLAKE LEE PROCEDURES: Echocardiographic Report: Transthoracic echocardiogram with complete 2D, M-Mode, and color Doppler examination. With Strain Analysis. INDICATIONS: Aortic Valve Sclerosis and I48.0 Paroxysmal atrial fibrillation. MEASUREMENTS: 2D/MM Value Range Doppler Value Range EF Mod BP 71 % [ 54 - 74 ] VIANNEY Vmax 2.27 cm2 [ 2.00 - 4.00 ] EF Teich MM 75 % [ 54 - 74 ] AV Mean PG 8 mmHg Estimated EF 70-75 % AV Peak Scottie 1.95 m/s [ 1.00 - 1.70 ] LVIDd 2D 4.38 cm [ 3.80 - 5.20 ] AV Peak PG 15 mmHg LVIDd MM 5.48 cm [ 3.80 - 5.20 ] AV VTI 46.46 cm LVIDs 2D 3.21 cm [ 2.20 - 3.50 ] LVOT Diam 1.99 cm [ 1.70 - 2.10 ] LVIDs MM 3.05 cm [ 2.20 - 3.50 ] LVOT Peak Scottie 1.42 m/s [ 0.70 - 1.10 ] LVPWd 2D 0.95 cm [ 0.60 - 0.90 ] LVOT VTI 37.88 cm LVPWd MM 1.04 cm [ 0.60 - 0.90 ] MV E Peak Scottie 1.35 m/s [ 0.60 - 1.30 ] IVSd 2D 1.05 cm [ 0.60 - 0.90 ] MV A Peak Scottie 1.08 m/s [ 1.00 - 1.20 ] IVSd MM 1.17 cm [ 0.60 - 0.90 ] MV Decel Time 212 msec [ 104 - 258 ] LA Dimension MM 4.38 cm [ 2.70 - 3.80 ] PV Peak Scottie 1.47 m/s [ 0.40 - 0.80 ] AoR Diam MM 2.76 cm [ 2.70 - 3.70 ] TR Peak Scottie 2.83 m/s [ 1.00 - 2.80 ] LA Volume Index 59 cc/m2 [ 16 - 34 ] TR Peak PG 32 mmHg ACS MM 1.69 cm RVSP 40.00 mmHg [ 10.00 - 36.00 ] Lateral E` 0.07 m/s [ 0.10 - 0.15 ] E/E` 19 2D/MM Value Range Doppler Value Range - FINDINGS: Interpretation Site: Exam was interpreted at [facility]. Left Ventricle: Normal left ventricular systolic function. No focal wall motion abnormalities. Normal left ventricular size. Mild concentric left ventricular hypertrophy. There is pseudonormal diastolic dysfunction Grade II. Ejection fraction is measured at 71 %. Ejection Fraction is visually estimated to be 70-75 %. Global Longitudinal Strain is -20 %. GLS is normal. Right Ventricle: Normal right ventricular size. Normal right ventricular systolic function. Left Atrium: There is moderate enlargement of left atrium. Right Atrium: The right atrium is normal in size. Atrial Septum: Normal atrial septum. Mitral Valve: Mitral valve leaflets appear mildly thickened. Mild mitral valve regurgitation. There is no hemodynamically significant mitral stenosis by Doppler. Aortic Valve: No evidence of hemodynamically significant aortic stenosis by Doppler. Aortic cusps appear severely sclerotic. Trileaflet aortic valve. Trace aortic valve regurgitation. Tricuspid Valve: Normal appearance of the tricuspid valve. Mild pulmonary hypertension based on right ventricular systolic pressure. Estimated peak RVSP is 40 mmHg. Mild tricuspid regurgitation. Pulmonic Valve: Normal appearance of the pulmonic valve. No pulmonic stenosis. Moderate pulmonic regurgitation. Pericardium: Trivial pericardial effusion. Aorta: No aortic root dilation. IVC: Normal size and normal respiratory collapse consistent with normal right atrial pressure (<5 mmHg). CONCLUSIONS: Normal left ventricular systolic function. No focal wall motion abnormalities. Normal left ventricular size. Mild concentric left ventricular hypertrophy. There is pseudonormal diastolic dysfunction Grade II. Ejection fraction is measured at 71 %. Ejection Fraction is visually estimated to be 70-75 %. Global Longitudinal Strain is -20 %. GLS is normal. There is moderate enlargement of left atrium. Mitral valve leaflets appear mildly thickened. Mild mitral valve regurgitation. Aortic cusps appear severely sclerotic. Mild pulmonary hypertension based on right ventricular systolic pressure. Estimated peak RVSP is 40 mmHg. Mild tricuspid regurgitation. Moderate pulmonic regurgitation. Normal sinus rhythm. Electronically Signed By: Blake Lee MD 12/19/2024 12:46:46 PM CDT Procedure Note Blake Lee MD - 12/19/2024 [facility] [address], [address], [place] [address] P:[phone] P:[phone] Echocardiographic Report Patient Name: LINDA VANEGAS C : 1940 Study Date: 12/19/2024 11:00:22 AM Gender: F Tech: Location: [facility] Ref Provider: BLAKE LEE Height(Cm): 155 BSA: 1.92 Weight(Kg): 85.7 Heart Rate: 61 BP: 140 / 72 Quality: Good Order Provider: BLAKE LEE PROCEDURES: Echocardiographic Report: Transthoracic echocardiogram with complete 2D, M-Mode, and color Dopplerexamination. With Strain Analysis. INDICATIONS: Aortic Valve Sclerosis and I48.0 Paroxysmal atrial fibrillation. MEASUREMENTS: 2D/MM Value Range Doppler ValueRange EF Mod BP 71 % [ 54 - 74 ] VIANNEY Vmax 2.27cm2 [ 2.00 - 4.00 ] EF Teich MM 75 % [ 54 - 74 ] AV Mean PG 8mmHg Estimated EF 70-75 % AV Peak Scottie 1.95m/s [ 1.00 - 1.70 ] LVIDd 2D 4.38 cm [ 3.80 - 5.20 ] AV Peak PG 15mmHg LVIDd MM 5.48 cm [ 3.80 - 5.20 ] AV VTI 46.46cm LVIDs 2D 3.21 cm [ 2.20 - 3.50 ] LVOT Diam 1.99 cm[ 1.70 - 2.10 ] LVIDs MM 3.05 cm [ 2.20 - 3.50 ] LVOT Peak Scottie 1.42m/s [ 0.70 - 1.10 ] LVPWd 2D 0.95 cm [ 0.60 - 0.90 ] LVOT VTI 37.88cm LVPWd MM 1.04 cm [ 0.60 - 0.90 ] MV E Peak Scottie 1.35m/s [ 0.60 - 1.30 ] IVSd 2D 1.05 cm [ 0.60 - 0.90 ] MV A Peak Scottie 1.08m/s [ 1.00 - 1.20 ] IVSd MM 1.17 cm [ 0.60 - 0.90 ] MV Decel Time 212msec [ 104 - 258 ] LA Dimension MM 4.38 cm [ 2.70 - 3.80 ] PV Peak Scottie 1.47m/s [ 0.40 - 0.80 ] AoR Diam MM 2.76 cm [ 2.70 - 3.70 ] TR Peak Scottie 2.83m/s [ 1.00 - 2.80 ] LA Volume Index 59 cc/m2 [ 16 - 34 ] TR Peak PG 32mmHg ACS MM 1.69 cm RVSP 40.00mmHg [ 10.00 - 36.00 ] Lateral E` 0.07 m/s [ 0.10 - 0.15 ] E/E` 19 2D/MM Value Range Doppler ValueRange - FINDINGS: Interpretation Site: Exam was interpreted at [facility]. Left Ventricle: Normal left ventricular systolic function. No focal wall motionabnormalities. Normal left ventricular size. Mild concentric left ventricular hypertrophy. Thereis pseudonormal diastolic dysfunction Grade II. Ejection fraction is measuredat 71 %. Ejection Fraction is visually estimated to be 70-75 %. Global LongitudinalStrain is -20 %. GLS is normal. Right Ventricle: Normal right ventricular size. Normal right ventricular systolicfunction. Left Atrium: There is moderate enlargement of left atrium. Right Atrium: The right atrium is normal in size. Atrial Septum: Normal atrial septum. Mitral Valve: Mitral valve leaflets appear mildly thickened. Mild mitral valveregurgitation. There is no hemodynamically significant mitral stenosis by Doppler. Aortic Valve: No evidence of hemodynamically significant aortic stenosis by Doppler.Aortic cusps appear severely sclerotic. Trileaflet aortic valve. Trace aortic valveregurgitation. Tricuspid Valve: Normal appearance of the tricuspid valve. Mild pulmonary hypertensionbased on right ventricular systolic pressure. Estimated peak RVSP is 40 mmHg. Mildtricuspid regurgitation. Pulmonic Valve: Normal appearance of the pulmonic valve. No pulmonic stenosis. Moderatepulmonic regurgitation. Pericardium: Trivial pericardial effusion. Aorta: No aortic root dilation. IVC: Normal size and normal respiratory collapse consistent with normal rightatrial pressure (<5 mmHg). CONCLUSIONS: Normal left ventricular systolic function. No focal wall motionabnormalities. Normal left ventricular size. Mild concentric left ventricular hypertrophy. Thereis pseudonormal diastolic dysfunction Grade II. Ejection fraction is measuredat 71 %. Ejection Fraction is visually estimated to be 70-75 %. Global LongitudinalStrain is -20 %. GLS is normal. There is moderate enlargement of left atrium. Mitral valve leaflets appear mildly thickened. Mild mitral valveregurgitation. Aortic cusps appear severely sclerotic. Mild pulmonary hypertension based on right ventricular systolic pressure.Estimated peak RVSP is 40 mmHg. Mild tricuspid regurgitation. Moderate pulmonic regurgitation. Normal sinus rhythm. Electronically Signed By: Blake Lee MD 12/19/2024 12:46:46 PM CDT us Blake Lee MD CV ECHO PROCEDURES Final Result * (ABNORMAL) eGFR (12/17/2024 12:00 PM CDT) eGFR 49(L) >=60 mL/min/1. 73 m2 Comment: Interpretive Data Reference Interval Normal >/= 90 mL/min/1.73m2 Mildly decreased* 60 - 89 mL/min/1.73m2 Mildly to moderately decreased 45 - 59 mL/min/1.73m2 Moderately to severely decreased 30 - 44 mL/min/1.73m2 Severely decreased 15 - 29 mL/min/1.73m2 Kidney Failure < 15 mL/min/1.73m2 *Relative to young adult level Estimated glomerular filtration rate is determined by the 2020 CKD-EPI equation recommended by the National Kidney Foundation (A Unifying Approach to GFR Estimation: Recommendations of the NKF-ASK Task Force on Reassessing the Inclusion of Race in Diagnosing Kidney Disease, JASN 2020). The CKD-EPI equation should not be used for patients with unstable renal function and has not been validated in children and those over 70. Current interpretive data was last reviewed 2021. Blood 12/17/2024 12:0 0 PM CDT 12/17/2024 5:38 PM CDT Nisa Rabago MD LAB BLOOD ORDERABLES Final Result [facility] [id number] [place] [address] * (ABNORMAL) Vitamin D 25 hydroxy (12/17/2024 12:00 PM CDT) Vitamin D 25-OH 27(L) 30 - 80 ng/mL Blood 12/17/2024 12:0 0 PM CDT 12/17/2024 5:27 PM CDT Narrative [facility] CONNELL - 12/17/2024 6:24 PM CDT FAX RESULTS TO [phone] NISA RABAGO Nisa Rabago MD LAB BLOOD [place] [id number] [address] [place] [address] * Lipid panel (12/17/2024 12:00 PM CDT) Cholesterol 131 30 - 199 mg/dL Comment: Interpretive Data Ages < or = 19 years Acceptable: <170 mg/dL Borderline high: 170-199 mg/dL High: >or= 200 mg/dL Ages > or = 20 years Desirable: <200 mg/dL Borderline high: 200-239 mg/dL High: >or= 240 mg/dL Literature References: 1. Expert Panel on Integrated Guidelines for Cardiovascular Health and Risk Reduction in Children and Adolescents. Pediatrics 2011;128:S213 2. NCEP Expert Panel. Circulation 2004;110:227 Current Interpretive Data was last revised on 2018. Triglycerides 93 <=149 mg/dL [facility] Comment: Interpretive Data Ages < or = 9 years Acceptable: <75 mg/dL Borderline high: 75-99 mg/dL High: >or= 100 mg/dL Ages 10 to 20 years Acceptable: <90 mg/dL Borderline high: 90-129 mg/dL High: >or= 130 mg/dL Ages > or = 20 years Desirable: <150 mg/dL Borderline high: 150-199 mg/dL High: 200-499 mg/dL Very high: >or= 499 mg/dL Literature References: 1. Expert Panel on Integrated Guidelines for Cardiovascular Health and Risk Reduction in Children and Adolescents. Pediatrics 2011;128:S213 2. NCEP Expert Panel. Circulation 2004;110:227 Current Interpretive Data was last revised on 2018. HDL 51 >=40 mg/dL RAJIV Comment: Interpretive Data Ages < or = 19 years Acceptable: >45 mg/dL Borderline low: 40-45 mg/dL Low: <40 mg/dL Ages > or = 20 years Desirable: >or= 60 mg/dL Low: <40 mg/dL Literature References: 1. Expert Panel on Integrated Guidelines for Cardiovascular Health and Risk Reduction in Children and Adolescents. Pediatrics 2011;128:S213 2. NCEP Expert Panel. Circulation 2004;110:227 Current Interpretive Data was last revised on 2018. LDL, calculated 62 <=129 mg/dL RAJIV Comment: Interpretive Data Ages < or = 19 years Acceptable: <110 mg/dL Borderline high: 110-129 mg/dL High: >or= 130 mg/dL Ages > or = 20 years Optimal: <100 mg/dL Near optimal: 100-129 mg/dL Borderline high: 130-159 mg/dL High: >160 mg/dL Calculated using the Hayden LDL-C estimating equation. This equation was implemented on 2024. Prior to this date LDL-C was estimated using the Friedewald equation. Literature References: 1. Expert Panel on Integrated Guidelines for Cardiovascular Health and Risk Reduction in Children and Adolescents. Pediatrics 2011;128:S213 2. NCEP Expert Panel. Circulation 2004;110:227 3. Hayden Whatley et al. BRODY Cardiol. 2020 January 08;5(5):540-548. doi: 10.1001/jamacardio.2020.0013 Current Interpretive Data was last revised on 2024. Non-HDL Cholesterol 80 mg/dL CERNER CH Comment: Interpretive Data Ages < or = 19 years Acceptable: <120 mg/dL Borderline high: 120-144 mg/dL High: >145 mg/dL Ages > or = 20 years When triglycerides are >200 mg/dL, Non-HDL cholesterol is a secondary target of therapy with treatment goals that are 30 mg/dL greater than the LDL cholesterol target. Literature References: 1. Expert Panel on Integrated Guidelines for Cardiovascular Health and Risk Reduction in Children and Adolescents. Pediatrics 2011;128:S213 2. NCEP Expert Panel. Circulation 2004;110:227 Current Interpretive Data was last revised on 2018. Chol/HDL ratio 3 CERNER CH Blood Venous blood specimen / Unknown 12/17/2024 12:00 PM CDT 12/17/2024 5:27 PM CDT Nisa Rabago MD LAB BLOOD ORDERABLES Final Result [facility] [id number] Department [place] [address] * Comprehensive metabolic panel (12/17/2024 12:00 PM CDT) Sodium 142 135 - 145 mmol/L Potassium, pl 4.6 3.3 - 4.9 mmol/L CERNER CH Chloride 106 97 - 110 mmol/L CERNER CH CO2 26 22 - 32 mmol/L CERNER CH Anion gap 10 2 - 15 mmol/L CERNER CH BUN 20 6 - 25 mg/dL CERNER CH Creatinine 1.10 0.60 - 1.10 mg/dL CERNER CH Glucose 103 70 - 199 mg/dL CERNER CH Comment: Interpretive Data Fasting glucose >/= 126 mg/dl is diagnostic for diabetes. Fasting is defined as no caloric intake for at least 8 hours. Fasting glucose between 100 mg/dl to 125 mg/dl is diagnostic of prediabetes. In a patient with classic symptoms of hyperglycemia or hyperglycemic crisis, a random glucose >/= 200 mg/dl is diagnostic for diabetes. In the absence of unequivocal hyperglycemia, results should be confirmed by repeat testing. The classification and Diagnosis of Diabetes Diabetes Care 202; 46: S19-S40. Current interpretive data was last revised 2022. Calcium 9.0 8.5 - 10.3 mg/dL CERNER CH Bilirubin, total 0.4 0.1 - 1.2 mg/dL CERNER CH Protein, pl 6.6 6.5 - 8.5 g/dL CERNER CH Albumin 3.8 3.5 - 5.0 g/dL CERNER CH Alk phos 121 40 - 130 Units/L CERNER CH ALT 30 7 - 45 Units/L CERNER CH AST 35 10 - 45 Units/L CERNER CH Blood Venous blood specimen / Unknown 12/17/2024 12:00 PM CDT 12/17/2024 5:27 PM CDT Nisa Rabago MD LAB BLOOD ORDERABLES Final Result Performing Organization Address City/State/[facility] Co de Phone Number [facility] [id number] Department [place] [address] * US Arterial Doppler Lower Extremity Bilateral (12/10/2024 1:15 PM CDT) Anatomical Region Laterality Modality Vascular Bilateral Ultrasound 12/10/2024 12:2 5 PM CDT Narrative 12/13/2024 8:30 AM CDT Vascular & Vein Surgery [address] [place] [address] Lower Extremity Arterial Doppler Report Patient Name: LINDA VANEGAS C : 1940 Study Date: 12/10/2024 12:25:00 PM Gender: F Historiographer: Gabriela Zuleta RVT Location: [facility] Ref Provider: BLAKE LEE Quality: Adequate Order Provider: BLAKE LEE PROCEDURES: Arterial Report: Bilateral lower extremity arterial Doppler exam at rest. INDICATIONS: Decreased pulses; bilateral foot/toes discoloration. HISTORY: HTN. HLD. Afib. COMPARISONS: No previous exams. MEASUREMENTS: Right Value Left Value Rt Brachial Pressure 198 mmHg Lt Brachial Pressure 201 mmHg Rt MEDICAL SECRETARY TEACHER Pressure 212 mmHg Lt MEDICAL SECRETARY TEACHER Pressure 152 mmHg Rt DPA Pressure 183 mmHg Lt DPA Pressure 138 mmHg Rt 1st Digit Pressure 86 mmHg Lt 1st Digit Pressure 38 mmHg Rt PT WILLIAM Resting 1.05 Lt PT WILLIAM Resting 0.76 Rt DP WILLIAM Resting 0.91 Lt DP WILLIAM Resting 0.69 Rt Digit 1/Arm Index 0.43 Lt Digit 1/Arm Index 0.19 FINDINGS: Right Common Femoral Artery Analysis: The common femoral artery waveform is triphasic. Right Popliteal Artery Analysis: The popliteal waveform is triphasic. Right Posterior Tibial Artery Analysis: The posterior tibial waveform is biphasic. Right Anterior Tibial Artery Analysis: The anterior tibial waveform is triphasic. Right Digits: The right digit waveform is dampened. Left Common Femoral Artery Analysis: The common femoral artery waveform is triphasic. Left Popliteal Artery Analysis: The popliteal waveform is monophasic. Left Posterior Tibial Artery Analysis: The posterior tibial waveform is monophasic. Left Anterior Tibial Artery Analysis: The anterior tibial waveform is monophasic. Left Digits: The left digit waveform is dampened. CONCLUSIONS: 1. Ankle-brachial index of 0.9-1.3 is within normal limits in the right lower extremity. 2. 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 ATTESTATION: I have reviewed and interpreted the pertinent images and measurements of this study. I attest to the conclusions in the final report that is provided above. Electronically Signed By: Enrique Jara MD 12/13/2024 7:46:33 AM CDT Procedure Note Enrique Jara MD - 12/13/2024 [facility] [address] [place] [address] Lower Extremity Arterial Doppler Report Patient Name: LINDA VANEGAS C : 1940 Study Date: 12/10/2024 12:25:00 PM Gender: F Historiographer: Gabriela Zuleta RVT Location: [facility] Provider: BLAKE LEE Quality: Adequate Order Provider: BLAKE LEE PROCEDURES: Arterial Report: Bilateral lower extremity arterial Doppler exam at rest. INDICATIONS: Decreased pulses; bilateral foot/toes discoloration. HISTORY: HTN. HLD. Afib. COMPARISONS: No previous exams. MEASUREMENTS: Right Value Left Value Rt Brachial Pressure 198 mmHg Lt Brachial Pressure 201 mmHg Rt MEDICAL SECRETARY TEACHER Pressure 212 mmHg Lt MEDICAL SECRETARY TEACHER Pressure 152 mmHg Rt DPA Pressure 183 mmHg Lt DPA Pressure 138 mmHg Rt 1st Digit Pressure 86 mmHg Lt 1st Digit Pressure 38 mmHg Rt PT WILLIAM Resting 1.05 Lt PT WILLIAM Resting 0.76 Rt DP WILLIAM Resting 0.91 Lt DP WILLIAM Resting 0.69 Rt Digit 1/Arm Index 0.43 Lt Digit 1/Arm Index 0.19 FINDINGS: Right Common Femoral Artery Analysis: The common femoral artery waveform is triphasic. Right Popliteal Artery Analysis: The popliteal waveform is triphasic. Right Posterior Tibial Artery Analysis: The posterior tibial waveform is biphasic. Right Anterior Tibial Artery Analysis: The anterior tibial waveform is triphasic. Right Digits: The right digit waveform is dampened. Left Common Femoral Artery Analysis: The common femoral artery waveform is triphasic. Left Popliteal Artery Analysis: The popliteal waveform is monophasic. Left Posterior Tibial Artery Analysis: The posterior tibial waveform is monophasic. Left Anterior Tibial Artery Analysis: The anterior tibial waveform is monophasic. Left Digits: The left digit waveform is dampened. CONCLUSIONS: 1. Ankle-brachial index of 0.9-1.3 is within normal limits in the rightlower extremity. 2. There is evidence of left leg arterial insufficiency at the level offemoral-popliteal arteries. ATTESTATION: I have reviewed and interpreted the pertinent images and measurements ofthis study. I attest to the conclusions in the final report that is provided above. Electronically Signed By: Enrique Jara MD 12/13/2024 7:46:33 AM CDT us Blake Lee MD [facility] [place] PROCEDURES Final R esult from Last 3 Months Insurance [facility] MEDICARE ADVANTAGE [employer] MEDICARE ADVANTAGE UHC MEDICARE ADVANTAGE Advance Directives For more information, please contact: [phone] * Full Code (Latest Code Status on File) Date Activated Date Inactivated Comments 09/05/2023 8:36 AM 09/07/2023 4:49 PM * Full Code Date Activated Date Inactivated Comments 10/23/2020 8:33 PM 10/26/2020 5:31 PM Care Teams Surgical Nurse Relationship Specialty Start Date End Date Nisa Rabago MD [address] [place] [address] PCP - General Emergency Medicine 07/23/24 Ty Vicente MD [address] [address] Consulting Physician Nephrology 02/03/22 Alcides Srivastava Jr., MD [address] [address] Referring Physician Cardiology 12/04/21 Andrew Koehler MD [address] [place] [address] Consulting Physician Otolaryngology 03/06/22 Rula Aldrich DO [address] [address] Consulting Physician Neurology 09/07/23 Conner Ybarra MD [address] [place] [address] Referring Physician Neurology 02/21/24
--- OUTSIDE RECORDS SUMMARY | 2025-02-09 11:02 | XMS_ITS | Encounter Summary ---
Author Organization [facility] Facility Care Team Providers Care Signal And Communications Maintainer Name Role Phone Brigette Carrasquillo MD Primary Care Provider Kristine Gonsales NP Primary Care Provider [phone] Anne Marie Vance MD Primary Care Provider Ty Vicente MD Unavailable [phone] Atif Walker MD, Alcides Schreiber. 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 us Historical Provider Final Res ult documented in this encounter Visit Diagnoses Not on filedocumented in this encounter Additional Health Concerns Infection Onset Date Last Indicated Resolved Time COVID: Suspected 05/12/2022 05/12/2022 05/12/2022 7:38 PM CDT COVID: Suspected 11/04/2024 11/04/2024 11/04/2024 4:31 PM EMERGENCY CARE ATTENDANT documented as of this encounter Care Teams Signal And Communications Maintainer Relationship Specialty Start Date End Date Brigette Carrasquillo MD [address] [facility] [address] [place] [address] PCP - General Family Medicine 01/08/19 01/08/19 Kristine Gonsales NP [address] [place] [address] PCP - General Nurse Practitioner 01/09/19 02/28/22 Anne Marie Vance MD [address] [place] [address] PCP - General Family Practice 03/01/22 07/22/24 Juan Davis MD [address] [place] [address] PCP - General Emergency Medicine 07/23/24 Ty Vicente MD 3 [facility] [address] [place] [address] Consulting Physician Nephrology 02/03/22 Alcides Srivastava Jr., MD [address] [address] Referring Physician Cardiology 12/04/21 Andrew Koehler MD [address] [place] [address] Consulting Physician Otolaryngology 03/06/22 Rula Aldrich DO [address] [address] Consulting Physician Neurology 09/07/23 Conner Ybarra MD [address] [place] [address] Referring Physician Neurology 02/21/24 documented as of this encounter
--- OUTSIDE RECORDS SUMMARY | 2025-02-09 11:02 | XMS_ITS | Encounter Summary ---
Author Organization [facility] Facility Care Team Providers Care Register Of Deeds Name Role Phone Brigette Carrasquillo MD Primary Care Provider Kristnie Gonsales NP Primary Care Provider [phone] Anne Marie Vance MD Primary Care Provider Ty Vicente MD Unavailable [phone] Atif Walker MD, Alcides Schreiber. 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 us Historical Provider Final Res ult documented in this encounter Visit Diagnoses Not on filedocumented in this encounter Additional Health Concerns Infection Onset Date Last Indicated Resolved Time COVID: Suspected 05/12/2022 05/12/2022 05/12/2022 7:38 PM CDT COVID: Suspected 11/04/2024 11/04/2024 11/04/2024 4:31 PM LITHOGRAPH PRINTER documented as of this encounter Care Teams Register Of Deeds Relationship Specialty Start Date End Date Brigette Carrasquillo MD [address] [facility] [address] [place] [address] PCP - General Family Medicine 01/08/19 01/08/19 Kristine Gonsales NP [facility] [place] [place] [address] PCP - General Nurse Practitioner 01/09/19 02/28/22 Anne Marie Vance MD [address] [place] [address] PCP - General Family Practice 03/01/22 07/22/24 Juan Davis MD [address] [place] [address] PCP - General Emergency Medicine 07/23/24 Ty Vicente MD [address] [facility] [address] [place] [address] Consulting Physician Nephrology 02/03/22 Alcides Srivastava Jr., MD [address] [address] Referring Physician Cardiology 12/04/21 Andrew Koehler MD [address] [place] [address] Consulting Physician Otolaryngology 03/06/22 Rula Aldrich DO [address] [address] Consulting Physician Neurology 09/07/23 Conner Ybarra MD [address] [place] [address] Referring Physician Neurology 02/21/24 documented as of this encounter
--- OUTSIDE RECORDS SUMMARY | 2025-02-09 11:02 | XMS_ITS | Referral Summary ---
Author Organization [facility] Address [address] [place] [address] Care Team Providers Care Steam Crane Operator Name Role Phone Ty Vicente MD Unavailable [phone] Atif Walker MD, Alcides Bass Unavailable [phone] Andrew Koehler MD Unavailable [phone] Rula Aldrich DO Unavailable Conner Ybarra MD Unavailable [phone] Nisa Rabago MD Primary Care Provide r Encounters Date Type Department Care Team Description 01/03/2025 Results Follow-Up [facility] Medical Group Convenient Care at [address] [address] Mili Sebastian PA Aerobic and anaerobic culture and gram stain Abscess Vaginal 12/31/2024 Orders Only [facility] Medical Group Vascular at [address] [place] [address] Enrique Jara MD Atherosclerosis of [place] 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 (Primary Dx) 12/31/2024 10:45 AM CDT Office Visit [facility] Medical Group Vascular at [address] [place] [address] Enrique Jara MD Peripheral arterial disease (Primary Dx); Mixed hyperlipidemia; Resistant hypertension 12/30/2024 5:56 PM CDT - 12/30/2024 11:59 PM CDT Hospital Encounter [address] [address] Abscess of right genital labia Discharge Disposition: Discharge to home or self care 12/30/2024 11:15 AM CDT Office Visit [facility] Convenient Care at [address] [address] Paola Rod NP Abscess of right genital labia (Primary Dx) 12/19/2024 11:15 AM CDT Ancillary Procedure [facility] Cardiology at [address] [address] Paroxysmal atrial fibrillation (HCC); Aortic valve sclerosis 12/17/2024 4:22 PM CDT - 12/17/2024 11:59 PM CDT Hospital Encounter [address] [address] Hyperlipemia Discharge Disposition: Discharge to home or self care 12/17/2024 9:00 AM CDT Lab [facility] Outpatient Lab at [address] [address] Hyperlipemia (Primary Dx) 12/16/2024 Results Follow-Up [facility] Cardiology at [address] [address] Blake Lee MD US Arterial Doppler Lower Extremity Bilateral, Transthoracic Echo (TTE) Complete W Doppler/CF 12/10/2024 1:00 PM CDT Ancillary Procedure [facility] Vascular and Vein Surgery at [address] [place] [address] Peripheral arterial disease 11/28/2024 11:15 AM CDT Office Visit [facility] Cardiology at [address] [place] [address] Blake Lee MD Paroxysmal atrial fibrillation (HCC) (Primary Dx); Peripheral arterial disease; Mixed hyperlipidemia; Aortic valve sclerosis; Resistant hypertension; Renal artery stenosis; PVC's (premature ventricular contractions); Chronic anticoagulation; Chronic kidney disease, stage 3b (HCC); SAUMYA on CPAP; Severe obesity (HCC) from Last 3 Months Allergies Active Allergy Reactions Criticality Noted Date [...] monitor Assessment & Plan (10/04/2023 6:42 PM WIRE COILER MACHINE OPERATOR): Patient does admit to degree of mild depression and loneliness. Hopefully the escitalopram will help. She is encouraged to use her support system. She would likely benefit from some counseling Anemia of chronic disease 06/14/2023 Assessment & Plan (11/21/2023 2:47 PM CDT): Chronic. [place] primarily related to her chronic kidney disease previously. We will monitor least yearly Assessment & Plan (10/04/2023 6:42 PM WIRE COILER MACHINE OPERATOR): Patient has a degree of chronic anemia [...] weight Assessment & Plan (10/04/2023 6:41 PM WIRE COILER MACHINE OPERATOR): Chronic. Suboptimally controlled. Patient is working on [...] episodes Assessment & Plan (10/04/2023 6:42 PM WIRE COILER MACHINE OPERATOR): Patient has a had a degree of [...] continue Assessment & Plan (10/04/2023 6:41 PM WIRE COILER MACHINE OPERATOR): Chronic. On anticoagulation for her underlying AFib. [...] comorbidities. Assessment & Plan (10/04/2023 6:40 PM WIRE COILER MACHINE OPERATOR): Chronic. Had evaluation by vascular previously. Due [...] 09/14/2021 Assessment & Plan (10/04/2023 6:40 PM WIRE COILER MACHINE OPERATOR): Previously noted. Intervention was deferred due to [...] updated lab work as ordered by her electrician apprentice powerhouse. She is advised to avoid nonsteroidal anti- [...] periodically Assessment & Plan (10/04/2023 6:39 PM WIRE COILER MACHINE OPERATOR): Chronic. Follows with Nephrology. They are just monitoring Assessment & Plan (07/03/2023 6:58 PM CDT): Chronic kidney disease has been relatively stable. This has limited some of the medications we can use. She does have a electrician apprentice powerhouse. We do have to be cautious with increasing risk for hyperkalemia with certain medications Assessment & Plan (06/14/2023 6:45 PM CDT): Chronic. GFR has gradually decreased over the last year. She sees Nephrology who is just monitoring Assessment & Plan (05/02/2023 3:35 PM CDT): Chronic. Renal function slightly improved after decrease in hydrochlorothiazide dose. Monitor. Patient has a electrician apprentice powerhouse PVC's (premature ventricular contractions) 11/12 Assessment & Plan (10/04/2023 6:40 PM WIRE COILER MACHINE OPERATOR): Chronic. Remains on carvedilol for blood pressure and symptomatic control. Has previously had significant bradycardia with higher doses SAUMYA on CPAP 09/24/2020 Assessment & Plan (05/23/2024 2:13 PM CDT): Chronic. Continue cpap Assessment & Plan (11/21/2023 2:45 PM CDT): Chronic. Compliant with CPAP. Continue Assessment & Plan (10/04/2023 6:40 PM WIRE COILER MACHINE OPERATOR): Chronic. Patient reports good compliance with use [...] specialist Assessment & Plan (10/04/2023 6:39 PM WIRE COILER MACHINE OPERATOR): Chronic. Patient has a history of multiple [...] 3B she would benefit from seeing a tank assembler for dietary consult in regards to the [...] 69 Assessment & Plan (10/04/2023 6:40 PM WIRE COILER MACHINE OPERATOR): Chronic. Remains on atorvastatin for cholesterol. She [...] will plan to eventually switch over to [facility] fashion coordinator after her current fashion coordinator retires in a few months Assessment & Plan (10/04/2023 6:38 PM WIRE COILER MACHINE OPERATOR): Chronic. Follows with Cardiology. Her fashion coordinator is retiring so will likely plan to transition to [facility] fashion coordinator for more definitive management long-term Assessment & Plan (05/02/2023 3:35 PM CDT): Chronic. Continue medication and care per Cardiology Diastolic dysfunction 03/02/2016 Assessment & Plan (05/23/2024 2:10 PM CDT): Chronic. Compensated. Continue current medication Assessment & Plan (11/21/2023 2:43 PM CDT): Chronic. Compensated. Continue current medication Assessment & Plan (10/04/2023 6:42 PM WIRE COILER MACHINE OPERATOR): Patient has a degree of chronic diastolic [...] recommended Assessment & Plan (10/04/2023 6:38 PM WIRE COILER MACHINE OPERATOR): Patient has a history of proximal atrial fibrillation. Minimal symptoms recently. Continue care per fashion coordinator Assessment & Plan (07/03/2023 6:57 PM CDT): [...] Dyslipidemia 03/02/2016 03/06/2022 Heart murmur 03/02/2016 10/04/2023 Immunizations Immunization Administration Dates Next Due Influenza, Unspecified 05/23/2024(Deferr ed: Patient Refused),09/10/2023(Deferred: Patient Refused),09/10/2022(Deferred: Patient Refused) Pneumococcal Conjugate Pcv20 05/23/2024(Deferred : Patient Refused) Social History Tobacco Use Types Packs/Day Years Used Date Smoking Tobacco: Never Smokeless Tobacco: Never Tobacco Cessation:Counseling Given: Not Answered Alcohol Use Standard Drinks/Week Comments Never 0 (1 standard drink = 0.6 oz pur e alcohol) Annexonities Answer Date Recorded In the past 12 months has rumr: turn off the lights, BABADU, oil, or water Socrative threatened to shut off services in your [...] 09/06/2023 How often do you attend chur or christianity services? Never 09/06/2023 Do you belong to any clubs o r organizations such as orthodox groups, unions, fraternal or athletic groups, or [...] you are drinking? Patient does not drink 4 Q3: How often do you have si [...] place to sleep or slept in a longterm (including now)? No 09/06/2023 Personal Safety Answer Date Recorded Have you ever been in or are you currently in a harmful physical or emotional relationship or is someone making you feel afraid or unsafe? Denies 09/05/2023 Comments No Sex and Gender Information Value Date Recorded Sex Assigned at Not on file Legal Sex Female 3:34 AM WIRE COILER MACHINE OPERATOR Gender Identity Not on file Sexual Orientation [...] 12/31/2024 11:08 AM CDT Plan of Treatment Not on file Procedures Procedure Name Priority Date/Time Associated Diagnosis [...] Gram Negative Bacilli Comment:Testing performed by : [facility], [address] [facility], [place]., [address] Report Amended Report - Complete: Moderate Mixed genitourinary tract microorganisms. Includes the following: Few Providencia rettgeri Few Klebsiella pneumoniae Rare Bacteroides ovatus group (.) [facility] Comment:Testing performed by : [facility], [address] [facility], [place]., [address] Organism PROVIDENCIA RETTGERI [facility] Organism KLEBSIELLA PNEUMONIAE [facility] Organism MIXED GENITOURINARY TRACT MICROORGANISMS. [facility] Organism BACTEROIDES OVATUS GROUP [facility] Abscess (Vaginal) 12/30/2024 12:00 PM CDT 12/30/2024 10:07 PM CDT Narrative BANNERNER - 01/06/2025 11:19 AM CDT Specimen received on an ESwab. Testing performed by [facility] Microbiology [facility] ([phone]) Specimens submitted from normally sterile body sites [...] ORDE KATHRYN Edited Result - Final RAJIV [id number] Department of Laboratories [place], [place] [id number] * TRANSTHORACIC ECHO (TTE) COMPLETE W DOPPLER/CF WO CONTRAST (12/19/2024 11:29 AM CDT) LV EF 70-75 % CONS SCIMAGE Anatomical Region Laterality Modality Ultrasound 12/19/2024 11:0 0 AM CDT Narrative 12/19/2024 12:47 PM CDT [facility] Medical Group Cardiology [facility], [address], [place] [address] P:[phone] P:[phone] Echocardiographic Report Patient Name: LINDA VANEGAS C [...] FINDINGS: Interpretation Site: Exam was interpreted at [facility]. Left Ventricle: Normal left ventricular systolic function. [...] Procedure Note Blake Lee MD - 12/19/2024 [facility] Medical Group Cardiology [address], [address], [place] [address] P:[phone] P:[phone] Echocardiographic Report Patient Name: LINDA VANEGAS C [...] FINDINGS: Interpretation Site: Exam was interpreted at [facility]. Left Ventricle: Normal left ventricular systolic function. [...] of Race in Diagnosing Kidney Disease, JASN 202). The CKD-EPI equation should not be used for patients with unstable renal function and has not been validated in children and those over 70. Current interpretive data was last reviewed 2021. Blood 12/17/2024 12:0 0 PM CDT 12/17/2024 5:38 PM CDT Nisa Rabago MD LAB BLOOD ORDERABLES Final Result RAJIV [address] [facility] [place] [address] * (ABNORMAL) Vitamin D 25 hydroxy (12/17/2024 12:00 PM CDT) Vitamin D 25-OH 27(L) 30 - 80 ng/mL Blood 12/17/2024 12:0 0 PM CDT 12/17/2024 5:27 PM CDT Narrative RAJIV CONNELL - 12/17/2024 6:24 PM CDT FAX RESULTS TO [phone] NISA RABAGO Nisa Rabago MD LAB BLOOD ORDERABLES Final Result Performing Organization Address City/[facility] Co de Phone Number RAJIV CONNELL [address] Department [place] [address] * Lipid panel (12/17/2024 12:00 PM CDT) [...] on 2018. Triglycerides 93 <=149 mg/dL [facility] CONNELL Comment: Interpretive Data Ages < or = [...] on 2018. HDL 51 >=40 mg/dL [facility] CONNELL Comment: Interpretive Data Ages < or = [...] 2018. LDL, calculated 62 <=129 mg/dL [facility] CONNELL Comment: Interpretive Data Ages < or = [...] NCEP Expert Panel. Circulation 2004;110:227 3. Hayden Roberson al. BRODY Cardiol. 2020 January 08;5(5):540-548. doi: 10.1001/jamacardio.2020.0013 Current Interpretive Data was last revised on 2024. Non-HDL Cholesterol 80 mg/dL RAJIV CONNELL Comment: Interpretive Data Ages < or = [...] Rabago MD LAB BLOOD ORDERABLES Final Result [facility] [address] Department [place] [address] * Comprehensive metabolic panel (12/17/2024 12:00 PM [...] 12:00 PM CDT 12/17/2024 5:27 PM CDT us Nisa Rabago MD LAB BLOOD ORDERABLES Final Result RAJIV CONNELL [address] Department [place] [address] * US Arterial Doppler Lower Extremity Bilateral (12/10/2024 1:15 PM CDT) Anatomical Region Laterality Modality Vascular Bilateral Ultrasound 12/10/2024 12:2 5 PM CDT Narrative 12/13/2024 8:30 AM CDT Vascular & Vein Surgery [address] [place] [address] Lower Extremity Arterial Doppler Report Patient Name: LINDA VANEGAS C : 1940 Study Date: 12/10/2024 12:25:00 PM Gender: F Passenger Brakeman: Gabriela Zuleta RVT Location: [facility] Ref Provider: BLAKE LEE Quality: Adequate Order Provider: BLAKE LEE PROCEDURES: Arterial Report: Bilateral lower extremity arterial Doppler exam at rest. INDICATIONS: Decreased pulses; bilateral foot/toes discoloration. HISTORY: HTN. HLD. Afib. COMPARISONS: No previous exams. MEASUREMENTS: Right Value Left Value Rt Brachial Pressure 198 mmHg Lt Brachial Pressure 201 mmHg Rt NAVAL ENGINEER Pressure 212 mmHg Lt NAVAL ENGINEER Pressure 152 mmHg Rt DPA Pressure 183 [...] - 12/13/2024 Vascular & Vein Surgery [address] [place] [address] Lower Extremity Arterial Doppler Report Patient Name: LINDA VANEGAS C : 1940 Study Date: 12/10/2024 12:25:00 PM Gender: F Passenger Brakeman: Gabriela Zuleta T Location: [facility] Ref Provider: BLAKE LEE Quality: Adequate Order Provider: BLAKE LEE PROCEDURES: Arterial Report: Bilateral lower extremity arterial Doppler exam at rest. INDICATIONS: Decreased pulses; bilateral foot/toes discoloration. HISTORY: HTN. HLD. Afib. COMPARISONS: No previous exams. MEASUREMENTS: Right Value Left Value Rt Brachial Pressure 198 mmHg Lt Brachial Pressure 201 mmHg Rt NAVAL ENGINEER Pressure 212 mmHg Lt NAVAL ENGINEER Pressure 152 mmHg Rt DPA Pressure 183 [...] Enrique Jara MD 12/13/2024 7:46:33 AM CDT Blake Lee MD IMG US PROCEDURES Final R esult from Last 3 Months Insurance UHC MEDICARE ADVANTAGE [place] [id number] UHC MEDICARE ADVANTAGE [facility] MEDICARE ADVANTAGE Advance Directives For more information, please contact: [phone] * Full Code (Latest Code Status on File) Date Activated Date Inactivated Comments 09/05/2023 8:36 AM 09/07/2023 4:49 PM * Full Code Date Activated Date Inactivated Comments 10/23/2020 8:33 PM 10/26/2020 5:31 PM Care Teams Steam Crane Operator Relationship Specialty Start Date End Date Nisa Rabago MD [address] [place] [address] PCP - General Emergency Medicine 07/23/24 Ty Vicente MD [address] [place] [address] Consulting Physician Nephrology 02/03/22 Alcides Srivastava Jr., MD [address] [place] [address] Referring Physician Cardiology 12/04/21 Andrew Koehler MD [address] [place] [address] Consulting Physician Otolaryngology 03/06/22 Rula Aldrich DO [address] [address] Consulting Physician Neurology 09/07/23 Conner Ybarra MD [address] [place] [address] Referring Physician Neurology 02/21/24
[2025-02-09 11:46] VITALS: BP 165/79; PULSE 77; RESP 20; O2SAT 100
[2025-02-09 12:12] LABS: Basophils Percent Auto 0.3 % (0.2-1.2); Eosinophils Absolute Auto 0.2 K/mm3 (0-0.3); Eosinophils Percent Auto 2.3 % (0-4.4); Hematocrit 35.4 % (37.0-47.0); Hemoglobin 11.3 g/dL (12.0-15.0); Immature Granulocyte Absolute 0.03 K/mm3 (0.00-0.031); Immature Granulocyte Percent A 0.4 % (0-0.5); Lymphocytes Absolute Auto 0.95 K/mm3 (0.9-3.2); Lymphocytes Percent Auto 12.9 % (18.3-44.2); Mean Corpuscular HGB Conc 31.9 g/dl (32-36); Mean Corpuscular Hemoglobin 28.5 pg (26-34); Mean Corpuscular Volume 89.4 fl (80-100); Mean Platelet Volume 11.1 fl (7.4-10.4); Monocytes Absolute Auto 0.5 K/mm3 (0.1-0.6); Monocytes Percent Auto 6.8 % (2.6-8.5); Neutrophils Absolute Auto 5.7 K/mm3 (1.3-6.7); Neutrophils Percent Auto 77.3 % (45.5-73.1); Platelet Count Result 151 k/mm3 (150-375); Red Blood Count 3.96 M/mm3 (4.2-5.4); Red Cell Distribution Width 13.5 % (11.5-14.5); White Blood Count 7.4 K/mm3 (4.5-10.0)
[2025-02-09 12:22] LABS: Alanine Aminotransferase 15 U/L (6-35); Albumin Level 3.9 g/dL (3.5-5.1); Alkaline Phosphatase 102 U/L (38-126); Anion Gap 6 mmol/L (4-12); Aspartate Amino Transferase 26 U/L (14-36); Bilirubin,Total 0.9 mg/dL (0.2-1.3); Blood Urea Nitrogen 23 mg/dL (7-17); Calcium 9.6 mg/dL (8.4-10.2); Carbon Dioxide 27 mmol/L (22-30); Chloride 106 mmol/L (98-107); Estimated CRCL calculation 30 ml/min; Estimated Glomerular Filt Rate 43; Glucose 119 mg/dL (65-110); INR 1.4; Lipase 26 U/L (23-300); Potassium 4.6 mmol/L (3.4-5.0); Prothrombin Time 17.2 Seconds (11.1-14.7); Sodium 139 mmol/L (137-145)
[2025-02-09 12:23] LABS: Partial Thromboplastin Time 35.9 Seconds (22.3-36.8)
--- OUTSIDE RECORDS SUMMARY | 2025-02-09 12:28 | XMS_ITS | Continuity of Care Document ---
Author Organization [facility] Address [address] [place] [address] Phone Care Team Providers Care Audio Visual Specialist Name Role Phone Rosalio Dsouza MD Unavailable Unavailable Allergies, Adverse Reactions, Alerts Substance Reaction Status Criticality No Known Allergies Active No Inform ation Medications Medication Instructions Dosage Effective Dates (start - stop) Status Comments irbesartan 150 mg tablet take 1 tablet by oral route every day 150 MG - Active spironolactone 25 mg tablet take 1 tablet by oral route every day 25 MG - Active omeprazole 20 mg capsule,delayed release take 1 capsule by oral route every day before a meal as needed 20 MG - Active take PRN only for heartburn Lipitor 40 mg tablet take 1 tablet [...] Copied on Encounter OFFICE/OUTPA TIENT VISIT, EST [facility] Medicine, [address] [place], [place] [address] [place], [place], [id number], [place] tel:[phone] [facility] Medicine HTN (chief complaint) colon polyp1 (chief complaint) aorta1 (chief complaint) Venous insufficiencyPolyp of colonEssential (primary) hypertensionRenal diseaseAtherosclero sis of aorta [address], [place], [place], [id number] , [place]. tel:[phone] OFFICE/OUTPA TIENT VISIT, EST [facility], [address], [place], [place], [address], [place] tel:[phone] [facility] Medicine abd pain1 (chief complaint) glucose1 (chief complaint) low renal1 (chief complaint) venous insufficie ncy1 (chief complaint) HTN (chief complaint) Abdominal painEssential (primary) hypertensionOveract ronnie bladderRenal diseaseHyperglycemi aVenous insufficiency [address], [place], [place], [address] , [place]. tel:[phone] [facility], [address] [place], [address], [place] tel:[phone] [facility] No Information [address], [place], [place], [address] , [place]. tel:[phone] PREV VISIT, NEW, 65 & OVER [facility], [address], [place], [place], [address], [place] tel:[phone] [facility] physical (chief complaint) Encounter for general adult medical exam w abnormal findingsRenal diseaseEssential (primary) hypertensionGoiterA therosclerosis of aortaAbdominal painOveractive bladder 1 [address], [address], [place], [place], [address] , [place]. tel:[phone] Family History Family Member Type Diagnosis Age [...] normal abd ultrasound. [facility] for above concern and CTA of the chest showed ? ulceration of distal descending thoracic aortic plaque and she was transferred to [facility]. While at [facility] Pt was evaluated by vascular surgery and [...] Mental Status Date Cognitive Assessment Orientation - Lemmon ed to time, place, person, situation.
--- OUTSIDE RECORDS SUMMARY | 2025-02-09 12:28 | XMS_ITS | Encounter Summary ---
Author Organization [facility] Facility Care Team Providers Care Polisher Numeral Name Role Phone Brigette Carrasquillo MD Primary Care Provider Kristine Gonsales NP Primary Care Provider [phone] Anne Marie Vance MD Primary Care Provider Ty Vicente MD Unavailable [phone] Atif Walker MD, Alcides Schreiber. Unavailable [phone] Andrew Koehler MD Unavailable [phone] Rula Aldrich DO Unavailable [phone] Connre Ybarra MD Unavailable [phone] Juan Davis MD Primary Care Provide r Encounter Details Date Type Department Care Team (Latest Contact Info) Description 04/01/2018 Orders Only [facility] ProviderJeremy MD [address] [place] [address] Social History Tobacco Use Types Packs/Day Years Used Date Smoking Tobacco: Never Assessed Comments Unknown Sex and Gender Information Value Date Recorded Sex Assigned at Not on file Legal Sex Female 3:34 AM BILLING DEPARTMENT SUPERVISOR Gender Identity Not on file Sexual [...] COVID: Suspected 11/04/2024 11/04/2024 11/04/2024 4:31 PM BILLING DEPARTMENT SUPERVISOR documented as of this encounter Care Teams Polisher Numeral Relationship Specialty Start Date End Date Brigette Carrasquillo MD [address] [facility] [address] [place] [address] PCP - General Family Medicine 01/08/19 01/08/19 Kristine Gonsales NP [address] [place] [address] PCP - General Nurse Practitioner 01/09/19 02/28/22 Anne Marie Vance MD [address] [place] [address] PCP - General Family Practice 03/01/22 07/22/24 Juan Davis MD [address] [place] [address] PCP - General Emergency Medicine 07/23/24 Ty Vicente MD [address] [facility] [address] [place] [address] Consulting Physician Nephrology 02/03/22 Alcides Srivastava Jr., MD [address] [address] Referring Physician Cardiology 12/04/21 Andrew Koehler MD [address] [place] [address] Consulting Physician Otolaryngology 03/06/22 Rula Aldrich DO [address] [address] Consulting Physician Neurology 09/07/23 Conner Ybarra MD [address] [place] [address] Referring Physician Neurology 02/21/24 documented as of this encounter
--- OUTSIDE RECORDS SUMMARY | 2025-02-09 12:28 | XMS_ITS | Encounter Summary ---
Author Organization [facility] Facility Care Team Providers Care Engagement Lead Name Role Phone Brigette Carrasquillo MD Primary Care Provider Kristine Gonsales NP Primary Care Provider [phone] Anne Marie Vance MD Primary Care Provider Ty Vicente MD Unavailable [phone] Atif Walker MD, Alcides Schreiber. Unavailable [phone] Andrew Koehler MD Unavailable [phone] Rula Aldrich DO Unavailable [phone] Conner Ybarra MD Unavailable [phone] Juan Davis MD Primary Care Provide r Encounter Details Date Type Department Care Team (Latest Contact Info) Description 10/17/2015 Orders Only [facility]INCON[facility] ProviderJeremy MD [address] [place] [address] Social History Tobacco Use Types Packs/Day Years Used Date Smoking Tobacco: Never Assessed Comments Unknown Sex and Gender Information Value Date Recorded Sex Assigned at Not on file Legal Sex Female 3:34 AM VP TRANSPORTATION Gender Identity Not on file Sexual Orientation [...] COVID: Suspected 11/04/2024 11/04/2024 11/04/2024 4:31 PM VP TRANSPORTATION documented as of this encounter Care Teams Engagement Lead Relationship Specialty Start Date End Date Brigette Carrasquillo MD [address] [facility] [address] [place] [address] PCP - General Family Medicine 01/08/19 01/08/19 Kristine Gonsales NP [facility] [place] [address] PCP - General Nurse Practitioner 01/09/19 02/28/22 Anne Marie Vance MD [address] [place] [address] PCP - General Family Practice 03/01/22 07/22/24 Juan Davis MD [address] [place] [address] PCP - General Emergency Medicine 07/23/24 Ty Vicente MD 3 [facility] [address] [place] [address] Consulting Physician Nephrology 02/03/22 Alcides Srivastava Jr., MD [address] [address] Referring Physician Cardiology 12/04/21 Andrew Koehler MD [address] [place] [address] Consulting Physician Otolaryngology 03/06/22 Rula Aldrich DO [address] [address] Consulting Physician Neurology 09/07/23 Conner Ybarra MD [address] [place] [address] Referring Physician Neurology 02/21/24 documented as of this encounter
--- OUTSIDE RECORDS SUMMARY | 2025-02-09 12:28 | XMS_ITS | Encounter Summary ---
Author Organization [facility] Facility Care Team Providers Care Medical Dosimetrist Name Role Phone Brigette Carrasquillo MD Primary Care Provider Kristine Gonsales NP Primary Care Provider [phone] nAne Marie Vance MD Primary Care Provider Ty Vicente MD Unavailable [phone] Atif Walker MD, Alcides Schreiber. Unavailable [phone] Andrew Koehler MD Unavailable [phone] Rula Aldrich DO Unavailable [phone] Conner Ybarra MD Unavailable [phone] Juan Davis MD Primary Care Provide r Encounter Details Date Type Department Care Team (Latest Contact Info) Description 11/25/2016 Orders Only [facility] CLINCONV ProviderJeremy MD [address] [place] [address] Social History Tobacco Use Types Packs/Day Years Used Date Smoking Tobacco: Never Assessed Comments Unknown Sex and Gender Information Value Date Recorded Sex Assigned at Not on file Legal Sex Female 3:34 AM DRY CAN TENDER Gender Identity Not on file Sexual Orientation [...] COVID: Suspected 11/04/2024 11/04/2024 11/04/2024 4:31 PM DRY CAN TENDER documented as of this encounter Care Teams Medical Dosimetrist Relationship Specialty Start Date End Date Brigette Carrasquillo MD [address] [facility] [address] [place] [address] PCP - General Family Medicine 01/08/19 01/08/19 Kristine Gonsales NP [facility] [place]1 [place] [address] PCP - General Nurse Practitioner 01/09/19 02/28/22 Anne Marie Vance MD [address] [place] [address] PCP - General Family Practice 03/01/22 07/22/24 Juan Davis MD [address] [place] [address] PCP - General Emergency Medicine 07/23/24 Ty Vicente MD 3 [facility] [address] [place] [address] Consulting Physician Nephrology 02/03/22 Alcides Srivastava Jr., MD [address] [address] Referring Physician Cardiology 12/04/21 Andrew Koehler MD [address] [place] [address] Consulting Physician Otolaryngology 03/06/22 Rula Aldrich DO [address] [address] Consulting Physician Neurology 09/07/23 Conner Ybarra MD 3 [place] [address] Referring Physician Neurology 02/21/24 documented as of this encounter
--- OUTSIDE RECORDS SUMMARY | 2025-02-09 12:28 | XMS_ITS | Encounter Summary ---
Author Organization [facility] Facility Care Team Providers Care Lodge Sales Associate Name Role Phone Brigette Carrasquillo MD Primary Care Provider Kristine Gonsales NP Primary Care Provider [phone] Anne Marie Vance MD Primary Care Provider Ty Vicente MD Unavailable [phone] Atif Walker MD, Alcides Schreiber. 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 Gender Identity Not on file Sexual Orientation [...] COVID: Suspected 11/04/2024 11/04/2024 11/04/2024 4:31 PM TECHNICAL DOCUMENT WRITER documented as of this encounter Care Teams Lodge Sales Associate Relationship Specialty Start Date End Date Brigette Carrasquillo MD [address] [facility] 120 [place] [address] PCP - General Family Medicine 01/08/19 01/08/19 Kristine Gonsales NP [address] [place] [address] PCP - General Nurse Practitioner 01/09/19 02/28/22 Anne Marie Vance MD [address] [place] [address] PCP - General Family Practice 03/01/22 07/22/24 Juan Davis MD [address] [place] [address] PCP - General Emergency Medicine 07/23/24 Ty Vicente MD 3 [facility] [address] [place] [address] Consulting Physician Nephrology 02/03/22 Alcides Srivastava Jr., MD [address] [address] Referring Physician Cardiology 12/04/21 Andrew Koehler MD [address] [place] [address] Consulting Physician Otolaryngology 03/06/22 Rula Aldrich DO [address] [address] Consulting Physician Neurology 09/07/23 Conner Ybarra MD 3 [place] [address] Referring Physician Neurology 02/21/24 documented as of this encounter
--- OUTSIDE RECORDS SUMMARY | 2025-02-09 12:28 | XMS_ITS | Encounter Summary ---
Author Organization [facility] Facility Care Team Providers Care Surgical Manager Name Role Phone Brigette Carrasquillo MD Primary Care Provider Kristine Gonsales NP Primary Care Provider [phone] Anne Marie Vance MD Primary Care Provider Ty Vicente MD Unavailable [phone] Atif Walker MD, Alcides Schreiber. 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 Gender Identity Not on file Sexual Orientation [...] COVID: Suspected 11/04/2024 11/04/2024 11/04/2024 4:31 PM MEDICAL ARTIST documented as of this encounter Care Teams Surgical Manager Relationship Specialty Start Date End Date Brigette Carrasquillo MD [address] [facility] 120 [place] [address] PCP - General Family Medicine 01/08/19 01/08/19 Kristine Gonsales NP [address] [place] [address] PCP - General Nurse Practitioner 01/09/19 02/28/22 Anne Marie Vance MD [address] [place] [address] PCP - General Family Practice 03/01/22 07/22/24 Juan Davis MD [address] [place] [address] PCP - General Emergency Medicine 07/23/24 Ty Vicente MD 3 [facility] [address] [place] [address] Consulting Physician Nephrology 02/03/22 Alcides Srivastava Jr., MD [address] [address] Referring Physician Cardiology 12/04/21 Andrew Koehler MD [address] [place] [address] Consulting Physician Otolaryngology 03/06/22 Rula Aldrich DO [address] [address] Consulting Physician Neurology 09/07/23 Conner Ybarra MD 3 [place] [address] Referring Physician Neurology 02/21/24 documented as of this encounter
--- OUTSIDE RECORDS SUMMARY | 2025-02-09 12:28 | XMS_ITS | Clinical Summary ---
Author Organization [facility] Address [address] [facility] [place] [address] Care Team Providers Care Machine Sneller Name Role Phone Unavailable Primary Care Provider Unavailabl e Source Comments [facility],non-owned Affiliates and Associated Physician Practices is amultiple site organization consisting of ambulatory clinics and hospital sitesin [place], [place], [place] and [place]. This disclosure is being madepursuant to the Care Everywhere program and may not contain all information available regarding this patient. Last updated 18.[facility] Allergies No known active allergies Medications * [...] age to complete this topic Insurance MEDICARE [facility] MEDICARE [facility]
--- OUTSIDE RECORDS SUMMARY | 2025-02-09 12:28 | XMS_ITS | Encounter Summary ---
Author Organization [facility] Facility Care Team Providers Care Skein Tier Name Role Phone Brigette Carrasquillo MD Primary Care Provider Kristine Gonsales NP Primary Care Provider [phone] Anne Marie Vance MD Primary Care Provider Ty Vicente MD Unavailable [phone] Atif Walker MD, Alcides Schreiber. 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 Gender Identity Not on file [...] COVID: Suspected 11/04/2024 11/04/2024 11/04/2024 4:31 PM PATCH MACHINE OPERATOR documented as of this encounter Care Teams Skein Tier Relationship Specialty Start Date End Date Brigette Carrasquillo MD [address] [facility] 120 [place] [address] PCP - General Family Medicine 01/08/19 01/08/19 Kristine Gonsales NP [address] [place] [address] PCP - General Nurse Practitioner 01/09/19 02/28/22 Anne Marie Vance MD [address] [place] [address] PCP - General Family Practice 03/01/22 07/22/24 Juan Davis MD [address] [place] [address] PCP - General Emergency Medicine 07/23/24 Ty Vicente MD 3 [facility] [address] [place] [address] Consulting Physician Nephrology 02/03/22 Alcides Srivastava Jr., MD [address] [address] Referring Physician Cardiology 12/04/21 Andrew Koehler MD [address] [place] [address] Consulting Physician Otolaryngology 03/06/22 Rula Aldrich DO [address] [address] Consulting Physician Neurology 09/07/23 Conner Ybarra MD 3 [place] [address] Referring Physician Neurology 02/21/24 documented as of this encounter
--- OUTSIDE RECORDS SUMMARY | 2025-02-09 12:28 | XMS_ITS | Encounter Summary ---
Author Organization [facility] Facility Care Team Providers Care Box Toe Buffer Name Role Phone Brigette Carrasquillo MD Primary Care Provider Kristine Gonsales NP Primary Care Provider [phone] Anne Marie Vance MD Primary Care Provider Ty Vicente MD Unavailable [phone] Atif Walker MD, Alcides Schreiber. 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1 [place] [address] PCP - General Nurse Practitioner 01/09/19 02/28/22 Anne Marie Vance MD [address] [place] [address] PCP - General Family Practice 03/01/22 07/22/24 Juan Davis MD [address] [place] [address] PCP - General Emergency Medicine 07/23/24 Ty Vicente MD 3 [facility] [address] [place] [address] Consulting Physician Nephrology 02/03/22 Alcides Srivastava Jr., MD [address] [address] Referring Physician Cardiology 12/04/21 Andrew Koehler MD [address] [place] [address] Consulting Physician Otolaryngology 03/06/22 Rula Aldrich DO [address] [address] Consulting Physician Neurology 09/07/23 Conner Ybarra MD 3 [place] [address] Referring Physician Neurology 02/21/24 documented as of this encounter
--- OUTSIDE RECORDS SUMMARY | 2025-02-09 12:28 | XMS_ITS | Encounter Summary ---
Author Organization [facility] Address [address] [place] [address] Care Team Providers Care Director Translational Name Role Phone Ty Vicente MD Unavailable [phone] Atif Walker MD, Alcides Bass Unavailable Andrew Koehler MD Unavailable [phone] Rula Aldrich DO Unavailable [phone] Conner Ybarra MD Unavailable [phone] Juan Davis MD Primary Care Provide r Encounter Details Date Type Department Care Team (Late st Contact Info) Description 01/03/2025 Results Follow-Up [facility] Convenient Care at [address] [address] Mili Sebastian PA [address] [place] [address] [address] [place] [address] Aerobic and anaerobic culture and gram stain Abscess Vaginal Social History Tobacco Use Types Packs/Day Years Used Date Smoking Tobacco: Never Smokeless Tobacco: Never Alcohol Use Standard Drinks/Week Comments Never 0 (1 standard drink = 0.6 oz pur e alcohol) [facility] Utilities Answer Date Recorded In the past 12 months has [employer] electric, gas, oil, or water company threatened [...] often do you attend chur ch or holiness services? Never 09/06/2023 Do you belong to any clubs o r organizations such as sabianism groups, unions, fraternal or athletic groups, or [...] place to sleep or slept in a mcfp (including now)? No 09/06/2023 Personal Safety Answer Date Recorded Have you ever been in or are you currently in a harmful physical or emotional relationship or is someone making you feel afraid or unsafe? 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 Gender Identity Not on file Sexual Orientation [...] on filedocumented in this encounter Care Teams Director Translational Relationship Specialty Start Date End Date Juan Davis MD [address] [facility] [place] [address] PCP - General Emergency Medicine 07/23/24 Ty Vicente MD 3 [facility] [address] [address] Consulting Physician Nephrology 02/03/22 Alcides Srivastava Jr., MD [address] [address] Referring Physician Cardiology 12/04/21 Andrew Koehler MD [address] [place] [address] Consulting Physician Otolaryngology 03/06/22 Rula Aldrich DO [address] [address] Consulting Physician Neurology 09/07/23 Conner Ybarra MD 3 [place] [address] Referring Physician Neurology 02/21/24 documented as of this encounter
--- OUTSIDE RECORDS SUMMARY | 2025-02-09 12:29 | XMS_ITS | Encounter Summary ---
Author Organization [facility] Facility Care Team Providers Care Technical Support Manager Name Role Phone Brigette Carrasquillo MD Primary Care Provider Kristine Gonsales NP Primary Care Provider [phone] Anne Marie Vance MD Primary Care Provider Ty Vicente MD Unavailable [phone] Atif Walker MD, Alcides Schreiber. 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 Gender Identity Not on file Sexual Orientation [...] COVID: Suspected 11/04/2024 11/04/2024 11/04/2024 4:31 PM 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 documented as of this encounter Care Teams Technical Support Manager Relationship Specialty Start Date End Date Brigette Carrasquillo MD [address] [facility] 120 [place] [address] PCP - General Family Medicine 01/08/19 01/08/19 Kristine Gonsales NP [address] [place] [address] PCP - General Nurse Practitioner 01/09/19 02/28/22 Anne Marie Vance MD [address] [place] [address] PCP - General Family Practice 03/01/22 07/22/24 Juan Davis MD [address] [place] [address] PCP - General Emergency Medicine 07/23/24 Ty Vicente MD 3 [facility] [address] [place] [address] Consulting Physician Nephrology 02/03/22 Alcides Srivastava Jr., MD [address] [address] Referring Physician Cardiology 12/04/21 Andrew Koehler MD [address] [place] [address] Consulting Physician Otolaryngology 03/06/22 Rula Aldrich DO [address] [address] Consulting Physician Neurology 09/07/23 Conner Ybarra MD 3 [place] [address] Referring Physician Neurology 02/21/24 documented as of this encounter
--- OUTSIDE RECORDS SUMMARY | 2025-02-09 12:29 | XMS_ITS | Referral Summary ---
Author Organization [facility] Address [address] [place] [address] Care Team Providers Care Patient Biller Name Role Phone Ty Vicente MD Unavailable [phone] Atif Walker MD, Alcides Bass Unavailable [phone] Andrew Koehler MD Unavailable [phone] Rula Aldrich DO Unavailable Conner Ybarra MD Unavailable [phone] Nisa Rabago MD Primary Care Provide r Encounters Date Type Department Care Team Description 01/03/2025 Results Follow-Up [facility] Convenient Care at [address] [address] Mili Sebastian PA Aerobic and anaerobic culture and gram stain Abscess Vaginal 12/31/2024 Orders Only [facility] Vascular at [address] [place] [address] Enrique Jara MD Atherosclerosis of [place] 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 (Primary Dx) 12/31/2024 10:45 AM CDT Office Visit [facility] Vascular at [address] [place] [address] Enrique Jara MD Peripheral arterial disease (Primary Dx); Mixed hyperlipidemia; Resistant hypertension 12/30/2024 5:56 PM CDT - 12/30/2024 11:59 PM CDT Hospital Encounter [address] [address] Abscess of right genital labia Discharge Disposition: Discharge to home or self care 12/30/2024 11:15 AM CDT Office Visit [facility] Con[facility]ient Care at [address] [address] Paola Rod NP Abscess of right genital labia (Primary Dx) 12/19/2024 11:15 AM CDT Ancillary Procedure [facility] Cardiology at [address] [address] Paroxysmal atrial fibrillation (HCC); Aortic valve sclerosis 12/17/2024 4:22 PM CDT - 12/17/2024 11:59 PM CDT Hospital Encounter [address] [address] Hyperlipemia Discharge Disposition: Discharge to home or self care 12/17/2024 9:00 AM CDT Lab [facility] Outpatient Lab at [address] [address] Hyperlipemia (Primary Dx) 12/16/2024 Results Follow-Up [facility] Cardiology at [address] [address] Blake Lee MD US Arterial Doppler Lower Extremity Bilateral, Transthoracic Echo (TTE) Complete W Doppler/CF 12/10/2024 1:00 PM CDT Ancillary Procedure [facility] Vascular and Vein Surgery at [address] [place] [address] Peripheral arterial disease 11/28/2024 11:15 AM CDT Office Visit [facility] Cardiology at [address] [place] [address] Blake Lee MD Paroxysmal atrial fibrillation (HCC) [...] monitor Assessment & Plan (10/04/2023 6:42 PM PHOTOGRAPHIC SUPERVISOR): Patient does admit to degree of mild depression and loneliness. Hopefully the escitalopram will help. She is encouraged to use her support system. She would likely benefit from some counseling Anemia of chronic disease 06/14/2023 Assessment & Plan (11/21/2023 2:47 PM CDT): Chronic. [place]orman primarily related to her chronic kidney disease previously. We will monitor least yearly Assessment & Plan (10/04/2023 6:42 PM PHOTOGRAPHIC SUPERVISOR): Patient has a degree of chronic [...] weight Assessment & Plan (10/04/2023 6:41 PM PHOTOGRAPHIC SUPERVISOR): Chronic. Suboptimally controlled. Patient is working [...] episodes Assessment & Plan (10/04/2023 6:42 PM PHOTOGRAPHIC SUPERVISOR): Patient has a had a degree [...] continue Assessment & Plan (10/04/2023 6:41 PM PHOTOGRAPHIC SUPERVISOR): Chronic. On anticoagulation for her underlying [...] comorbidities. Assessment & Plan (10/04/2023 6:40 PM PHOTOGRAPHIC SUPERVISOR): Chronic. Had evaluation by vascular previously. [...] 09/14/2021 Assessment & Plan (10/04/2023 6:40 PM PHOTOGRAPHIC SUPERVISOR): Previously noted. Intervention was deferred due [...] updated lab work as ordered by her [employer] operations consultant. She is advised to avoid nonsteroidal anti- [...] periodically Assessment & Plan (10/04/2023 6:39 PM PHOTOGRAPHIC SUPERVISOR): Chronic. Follows with Nephrology. They are just monitoring Assessment & Plan (07/03/2023 6:58 PM CDT): Chronic kidney disease has been relatively stable. This has limited some of the medications we can use. She does have a [employer] operations consultant. We do have to be cautious with increasing risk for hyperkalemia with certain medications Assessment & Plan (06/14/2023 6:45 PM CDT): Chronic. GFR has gradually decreased over the last year. She sees Nephrology who is just monitoring Assessment & Plan (05/02/2023 3:35 PM CDT): Chronic. Renal function slightly improved after decrease in hydrochlorothiazide dose. Monitor. Patient has a [employer] operations consultant PVC's (premature ventricular contractions) 11/12 Assessment & Plan (10/04/2023 6:40 PM PHOTOGRAPHIC SUPERVISOR): Chronic. Remains on carvedilol for blood pressure and symptomatic control. Has previously had significant bradycardia with higher doses SAUMYA on CPAP 09/24/2020 Assessment & Plan (05/23/2024 2:13 PM CDT): Chronic. Continue cpap Assessment & Plan (11/21/2023 2:45 PM CDT): Chronic. Compliant with CPAP. Continue Assessment & Plan (10/04/2023 6:40 PM PHOTOGRAPHIC SUPERVISOR): Chronic. Patient reports good compliance with [...] specialist Assessment & Plan (10/04/2023 6:39 PM PHOTOGRAPHIC SUPERVISOR): Chronic. Patient has a history of [...] 3B she would benefit from seeing a photo editor for dietary consult in regards to the [...] 69 Assessment & Plan (10/04/2023 6:40 PM PHOTOGRAPHIC SUPERVISOR): Chronic. Remains on atorvastatin for cholesterol. [...] will plan to eventually switch over to [facility] poultry breeder after her current poultry breeder retires in a few months Assessment & Plan (10/04/2023 6:38 PM PHOTOGRAPHIC SUPERVISOR): Chronic. Follows with Cardiology. Her poultry breeder is retiring so will likely plan to transition to [facility] poultry breeder for more definitive management long-term Assessment & Plan (05/02/2023 3:35 PM CDT): Chronic. Continue medication and care per Cardiology Diastolic dysfunction 03/02/2016 Assessment & Plan (05/23/2024 2:10 PM CDT): Chronic. Compensated. Continue current medication Assessment & Plan (11/21/2023 2:43 PM CDT): Chronic. Compensated. Continue current medication Assessment & Plan (10/04/2023 6:42 PM PHOTOGRAPHIC SUPERVISOR): Patient has a degree of chronic [...] recommended Assessment & Plan (10/04/2023 6:38 PM PHOTOGRAPHIC SUPERVISOR): Patient has a history of proximal atrial fibrillation. Minimal symptoms recently. Continue care per poultry breeder Assessment & Plan (07/03/2023 6:57 PM CDT): [...] drink = 0.6 oz pur e alcohol) Rangespanities Answer Date Recorded In the past 12 months has [employer], [employer], oil, or water [employer] threatened to shut off services in your [...] How often do you attend chur or restorationism services? Never 09/06/2023 Do you belong to any clubs o r organizations such as taoist groups, unions, fraternal or athletic groups, or [...] place to sleep or slept in a fci (including now)? No 09/06/2023 Personal Safety Answer Date Recorded Have you ever been in or are you currently in a harmful physical or emotional relationship or is someone making you feel afraid or unsafe? Denies 09/05/2023 Comments No Sex and Gender Information Value Date Recorded Sex Assigned at Not on file Legal Sex Female 3:34 AM PHOTOGRAPHIC SUPERVISOR Gender Identity Not on file Sexual [...] Gram Negative Bacilli Comment:Testing performed by : [facility], [address] [facility], [place]., [address] Report Amended Report - Complete: Moderate Mixed genitourinary tract microorganisms. Includes the following: Few Providencia rettgeri Few Klebsiella pneumoniae Rare Bacteroides ovatus group (.) [facility] Comment:Testing performed by : [facility], [address] [facility], [place]., [address] Organism PROVIDENCIA RETTGERI [facility] Organism KLEBSIELLA PNEUMONIAE [facility] Organism MIXED GENITOURINARY TRACT MICROORGANISMS. [facility] Organism BACTEROIDES OVATUS GROUP [facility] Abscess (Vaginal) 12/30/2024 12:00 PM CDT 12/30/2024 10:07 PM CDT Narrative [facility] - 01/06/2025 11:19 AM CDT Specimen received on an ESwab. Testing performed by [facility] Microbiology Laboratory ([phone]) Specimens submitted from normally sterile body sites [...] ORDE KATHRYN Edited Result - Final RAJIV [address] Department of Laboratories [place], [place] [id number] * TRANSTHORACIC ECHO (TTE) COMPLETE W DOPPLER/CF WO CONTRAST (12/19/2024 11:29 AM CDT) LV EF 70-75 % CONS SCIMAGE Anatomical Region Laterality Modality Ultrasound 12/19/2024 11:0 0 AM CDT Narrative 12/19/2024 12:47 PM CDT [facility] Cardiology [facility], [address], [place] [address] P:[phone] P:[phone] Echocardiographic Report Patient Name: LINDA VANEGAS C [...] FINDINGS: Interpretation Site: Exam was interpreted at [facility]. Left Ventricle: Normal left ventricular systolic function. [...] Procedure Note Blake Lee MD - 12/19/2024 [facility] Cardiology [address] [facility], [address], [place] [address] P:[phone] P:[phone] Echocardiographic Report Patient Name: LINDA VANEGAS C [...] FINDINGS: Interpretation Site: Exam was interpreted at [facility]. Left Ventricle: Normal left ventricular systolic function. [...] MD LAB BLOOD ORDERABLES Final Result RAJIV [address] [address] [facility] [employer] [place] [address] * (ABNORMAL) Vitamin D 25 hydroxy (12/17/2024 12:00 PM CDT) Vitamin D 25-OH 27(L) 30 - 80 ng/mL Blood 12/17/2024 12:0 0 PM CDT 12/17/2024 5:27 PM CDT Narrative [facility] - 12/17/2024 6:24 PM CDT FAX RESULTS TO [phone] NISA RABAGO Nisa Rabago MD LAB BLOOD ORDERABLES Final Result Performing Organization Address City/[facility] Co de Phone Number [facility] CONNELL [address] [address] Department [place] [address] * Lipid panel (12/17/2024 12:00 PM CDT) [...] Rabago MD LAB BLOOD ORDERABLES Final Result [facility] [address] [address] Department [place] [address] * Comprehensive metabolic panel (12/17/2024 12:00 PM [...] LAB BLOOD ORDERABLES Final Result [facility] CONNELL [address] [address] Department [place] [address] * US Arterial Doppler Lower Extremity Bilateral (12/10/2024 1:15 PM CDT) Anatomical Region Laterality Modality Vascular Bilateral Ultrasound 12/10/2024 12:2 5 PM CDT Narrative 12/13/2024 8:30 AM CDT Vascular & Vein Surgery [address] [place] [address] Lower Extremity Arterial Doppler Report Patient Name: LINDA VANEGAS C : 1940 Study Date: 12/10/2024 12:25:00 PM Gender: F Journeyman Electrician: Gabriela Zuleta RVT Location: [facility] Ref Provider: BLAKE LEE Quality: Adequate Order Provider: BLAKE LEE PROCEDURES: Arterial Report: Bilateral lower extremity arterial Doppler exam at rest. INDICATIONS: Decreased pulses; bilateral foot/toes discoloration. HISTORY: HTN. HLD. Afib. COMPARISONS: No previous exams. MEASUREMENTS: Right Value Left Value Rt Brachial Pressure 198 mmHg Lt Brachial Pressure 201 mmHg Rt MANAGEMENT ASSISTANT Pressure 212 mmHg Lt MANAGEMENT ASSISTANT Pressure 152 mmHg Rt DPA Pressure 183 [...] - 12/13/2024 Vascular & Vein Surgery [address] [facility] [address] Lower Extremity Arterial Doppler Report Patient Name: LINDA VANEGAS C : 1940 Study Date: 12/10/2024 12:25:00 PM Gender: F Journeyman Electrician: Gabriela Zuleta T Location: [facility] Ref Provider: BLAKE LEE Quality: Adequate Order Provider: BLAKE LEE PROCEDURES: Arterial Report: Bilateral lower extremity arterial Doppler exam at rest. INDICATIONS: Decreased pulses; bilateral foot/toes discoloration. HISTORY: HTN. HLD. Afib. COMPARISONS: No previous exams. MEASUREMENTS: Right Value Left Value Rt Brachial Pressure 198 mmHg Lt Brachial Pressure 201 mmHg Rt MANAGEMENT ASSISTANT Pressure 212 mmHg Lt MANAGEMENT ASSISTANT Pressure 152 mmHg Rt DPA Pressure 183 [...] Last 3 Months Insurance UHC MEDICARE [facility]ANT[facility] Address: [facility] [address] [id number] UHC MEDICARE ADVANTAGE [facility] Address: [address] [address] [place] [address] [facility] MEDICARE [facility] Address: [facility] [address] [place] [address] Advance Directives For more information, please contact: [phone] * Full Code (Latest Code Status on File) Date Activated Date Inactivated Comments 09/05/2023 8:36 AM 09/07/2023 4:49 PM * Full Code Date Activated Date Inactivated Comments 10/23/2020 8:33 PM 10/26/2020 5:31 PM Care Teams Patient Biller Relationship Specialty Start Date End Date Nisa Rabago MD [address] [place] [address] PCP - General Emergency Medicine 07/23/24 Ty Vicente MD [address] [facility] [address] [place] [address] Consulting Physician Nephrology 02/03/22 Alcides Srivastava Jr., MD [address] [facility] [address] [place] [address] Referring Physician Cardiology 12/04/21 Andrew Koehler MD [address] [place] [address] Consulting Physician Otolaryngology 03/06/22 Rula Aldrich DO [address] [address] Consulting Physician Neurology 09/07/23 Conner Ybarra MD [address] [place] [address] Referring Physician Neurology 02/21/24
--- OUTSIDE RECORDS SUMMARY | 2025-02-09 12:29 | XMS_ITS | CONTINUITY OF CARE DOCUMENT ---
Author Name john lopez Address Unknown Organization [facility] Address [address] [place] [address] [address] [place] [address] Phone [phone] Care Team Providers Care Catering Convention Services Manager Name Role Phone SANDRA TORRES, MAX Unavailable MAX FLORES MD Unavailable [phone] INSURANCE PROVIDERS Payer name Policy type / Coverage type [place] red alliance party ID [facility] [employer] [id number] [place] MED[place] Medicare [id number]
--- OUTSIDE RECORDS SUMMARY | 2025-02-09 12:29 | XMS_ITS | Encounter Summary ---
Author Organization [facility]/Health system Facility Care Team Providers Care Continuous Improvement Black Belt Name Role Phone Brigette Carrasquillo MD Primary Care Provider Kristine Gonsales NP Primary Care Provider [phone] Anne Marie Vance MD Primary Care Provider Ty Vicente MD Unavailable [phone] Atif Walker MD, Alcides Schreiber. Unavailable [phone] Andrew Koehler MD Unavailable [phone] Rula Aldrich DO Unavailable [phone] Conner Ybarra MD Unavailable [phone] Juan Davis MD Primary Care Provide r Encounter Details Date Type Department Care Team (Latest Contact Info) Description 01/24/2014 Orders Only [facility] ProviderJeremy MD [address] [place] [address] Social History Tobacco Use Types Packs/Day Years Used Date Smoking Tobacco: Never Assessed Comments Unknown Sex and Gender Information Value Date Recorded Sex Assigned at Not on file Legal Sex Female 3:34 AM CARAMEL CANDY MAKER Gender Identity Not on file Sexual Orientation [...] COVID: Suspected 11/04/2024 11/04/2024 11/04/2024 4:31 PM CARAMEL CANDY MAKER documented as of this encounter Care Teams Continuous Improvement Black Belt Relationship Specialty Start Date End Date Brigette Carrasquillo MD [address] [facility] [address] [place] [address] PCP - General Family Medicine 01/08/19 01/08/19 Kristine Gonsales NP [address] [place] [address] PCP - General Nurse Practitioner 01/09/19 02/28/22 Anne Marie Vance MD [address] [place] [address] PCP - General Family Practice 03/01/22 07/22/24 Juan Davis MD [address] [place] [address] PCP - General Emergency Medicine 07/23/24 Ty Vicente MD 3 [facility] [address] [place] [address] Consulting Physician Nephrology 02/03/22 Alcides Srivastava Jr., MD [address] [address] Referring Physician Cardiology 12/04/21 Andrew Koehler MD [address] [place] [address] Consulting Physician Otolaryngology 03/06/22 Rula Aldrich DO [address] [address] Consulting Physician Neurology 09/07/23 Conner Ybarra MD [address] [place] [address] Referring Physician Neurology 02/21/24 documented as of this encounter
--- OUTSIDE RECORDS SUMMARY | 2025-02-09 12:29 | XMS_ITS | Clinical Summary ---
Author Organization [facility] at [facility] Office Center Address [address] [place] [address] Care Team Providers Care Vice President Of Marketing Name Role Phone Ty Vicente MD Unavailable [phone] Atif Walker MD, Alcides Bass Unavailable [phone] Andrew Koehler MD Unavailable [phone] Rula Aldrich DO Unavailable [phone] Conner Ybarra MD Unavailable [phone] Nisa Rabago MD Primary Care Provide r [...] monitor Assessment & Plan (10/04/2023 6:42 PM MOBILE NURSE): Patient does admit to degree of mild depression and loneliness. Hopefully the escitalopram will help. She is encouraged to use her support system. She would likely benefit from some counseling Anemia of chronic disease 06/14/2023 Assessment & Plan (11/21/2023 2:47 PM CDT): Chronic. [place] primarily related to her chronic kidney disease previously. We will monitor least yearly Assessment & Plan (10/04/2023 6:42 PM MOBILE NURSE): Patient has a degree of chronic anemia [...] weight Assessment & Plan (10/04/2023 6:41 PM MOBILE NURSE): Chronic. Suboptimally controlled. Patient is working on [...] episodes Assessment & Plan (10/04/2023 6:42 PM MOBILE NURSE): Patient has a had a degree of [...] continue Assessment & Plan (10/04/2023 6:41 PM MOBILE NURSE): Chronic. On anticoagulation for her underlying AFib. [...] comorbidities. Assessment & Plan (10/04/2023 6:40 PM MOBILE NURSE): Chronic. Had evaluation by vascular previously. Due [...] 09/14/2021 Assessment & Plan (10/04/2023 6:40 PM MOBILE NURSE): Previously noted. Intervention was deferred due to [...] updated lab work as ordered by her salmon gillnet vessel operator. She is advised to avoid nonsteroidal anti- [...] periodically Assessment & Plan (10/04/2023 6:39 PM MOBILE NURSE): Chronic. Follows with Nephrology. They are just monitoring Assessment & Plan (07/03/2023 6:58 PM CDT): Chronic kidney disease has been relatively stable. This has limited some of the medications we can use. She does have a salmon gillnet vessel operator. We do have to be cautious with increasing risk for hyperkalemia with certain medications Assessment & Plan (06/14/2023 6:45 PM CDT): Chronic. GFR has gradually decreased over the last year. She sees Nephrology who is just monitoring Assessment & Plan (05/02/2023 3:35 PM CDT): Chronic. Renal function slightly improved after decrease in hydrochlorothiazide dose. Monitor. Patient has a salmon gillnet vessel operator PVC's (premature ventricular contractions) 11/12 Assessment & Plan (10/04/2023 6:40 PM MOBILE NURSE): Chronic. Remains on carvedilol for blood pressure and symptomatic control. Has previously had significant bradycardia with higher doses SAUMYA on CPAP 09/24/2020 Assessment & Plan (05/23/2024 2:13 PM CDT): Chronic. Continue cpap Assessment & Plan (11/21/2023 2:45 PM CDT): Chronic. Compliant with CPAP. Continue Assessment & Plan (10/04/2023 6:40 PM MOBILE NURSE): Chronic. Patient reports good compliance with use [...] specialist Assessment & Plan (10/04/2023 6:39 PM MOBILE NURSE): Chronic. Patient has a history of multiple [...] 3B she would benefit from seeing a sales facilitator for dietary consult in regards to the [...] 69 Assessment & Plan (10/04/2023 6:40 PM MOBILE NURSE): Chronic. Remains on atorvastatin for cholesterol. She [...] will plan to eventually switch over to [facility] court commissioner after her current court commissioner retires in a few months Assessment & Plan (10/04/2023 6:38 PM MOBILE NURSE): Chronic. Follows with Cardiology. Her court commissioner is retiring so will likely plan to transition to [facility] court commissioner for more definitive management long-term Assessment & Plan (05/02/2023 3:35 PM CDT): Chronic. Continue medication and care per Cardiology Diastolic dysfunction 03/02/2016 Assessment & Plan (05/23/2024 2:10 PM CDT): Chronic. Compensated. Continue current medication Assessment & Plan (11/21/2023 2:43 PM CDT): Chronic. Compensated. Continue current medication Assessment & Plan (10/04/2023 6:42 PM MOBILE NURSE): Patient has a degree of chronic diastolic [...] recommended Assessment & Plan (10/04/2023 6:38 PM MOBILE NURSE): Patient has a history of proximal atrial fibrillation. Minimal symptoms recently. Continue care per court commissioner Assessment & Plan (07/03/2023 6:57 PM CDT): [...] Department Care Team Description 01/03/2025 Results Follow-Up [facility] at [address] [address] Mili Sebastian PA Aerobic and anaerobic culture and gram stain Abscess Vaginal 12/31/2024 10:45 AM CDT Office Visit [facility] Vascular at [address] [place] [address] Enrique Jara MD Peripheral arterial disease (Primary Dx); Mixed hyperlipidemia; Resistant hypertension 12/31/2024 Orders Only [facility] V[facility] at [address] [address] Enrique Jara MD 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 (Primary Dx) 12/30/2024 5:56 PM CDT - 12/30/2024 11:59 PM CDT Hospital Encounter [address] [address] Abscess of right genital labia Discharge Disposition: Discharge to home or self care 12/30/2024 11:15 AM CDT Office Visit [facility] at [address] [phone] Paola Rod NP Abscess of right genital labia (Primary Dx) 12/19/2024 11:15 AM CDT Ancillary Procedure [facility] Cardiology at [address] [address] Paroxysmal atrial fibrillation (HCC); Aortic valve sclerosis 12/17/2024 4:22 PM CDT - 12/17/2024 11:59 PM CDT Hospital Encounter [address] [address] Hyperlipemia Discharge Disposition: Discharge to home or self care 12/17/2024 9:00 AM CDT Lab [facility] Out[facility] at [address] [phone] Hyperlipemia (Primary Dx) 12/16/2024 Results Follow-Up [facility] Cardiology at [address] [address] Blake Lee MD US Arterial Doppler Lower Extremity Bilateral, Transthoracic Echo (TTE) Complete W Doppler/CF 12/10/2024 1:00 PM CDT Ancillary Procedure [facility] Vascular and Vein Surgery at [address] [address] Peripheral arterial disease 11/28/2024 11:15 AM CDT Office Visit [facility] Cardiology at [address] [place] [address] Blake Lee MD Paroxysmal atrial [...] drink = 0.6 oz pur e alcohol) [facility] Utilities Answer Date Recorded In the past 12 months has [employer], gas, oil, or water [employer] threatened to shut off services in your [...] often do you attend chur ch or church services? Never 09/06/2023 Do you belong to any clubs o r organizations such as anglican groups, unions, fraternal or athletic groups, or [...] place to sleep or slept in a halfway (including now)? No 09/06/2023 Personal Safety Answer Date Recorded Have you ever been in or are you currently in a harmful physical or emotional relationship or is someone making you feel afraid or unsafe? Denies 09/05/2023 Comments No Sex and Gender Information Value Date Recorded Sex Assigned at Not on file Legal Sex Female 3:34 AM MOBILE NURSE Gender Identity Not on file Sexual Orientation [...] Gram Negative Bacilli Comment:Testing performed by : [facility], [address] [place]., [address] Report Amended Report - Complete: Moderate Mixed genitourinary tract microorganisms. Includes the following: Few Providencia rettgeri Few Klebsiella pneumoniae Rare Bacteroides ovatus group (.) CERNER Comment:Testing performed by : [facility], [address] [facility] [place]., [address] Organism PROVIDENCIA RETTGERI [facility] Organism KLEBSIELLA PNEUMONIAE CERNER Organism MIXED GENITOURINARY TRACT MICROORGANISMS. CERNER Organism BACTEROIDES OVATUS GROUP CERNER Abscess (Vaginal) 12/30/2024 12:00 PM CDT 12/30/2024 10:07 PM CDT Narrative CERNER - 01/06/2025 11:19 AM CDT Specimen received on an ESwab. Testing performed by [facility] Microbiology Laboratory ([phone]) Specimens submitted from normally sterile body sites [...] ORDE KATHRYN Edited Result - Final RAJIV [address] Department [place] [address] * TRANSTHORACIC ECHO (TTE) COMPLETE W DOPPLER/CF WO CONTRAST (12/19/2024 11:29 AM CDT) LV EF 70-75 % CONS SCIMAGE Anatomical Region Laterality Modality Ultrasound 12/19/2024 11:0 0 AM CDT Narrative 12/19/2024 12:47 PM CDT [facility] Cardiology [address], [address], [place] [address] P:[phone] P:[phone] Echocardiographic Report Patient Name: LINDA VANEGAS C [...] Site: Exam was interpreted at [facility]. Left Ventricle: Normal left ventricular systolic [...] Procedure Note Blake Lee MD - 12/19/2024 [facility] Cardiology [address], [address], [place] [address] P:[phone] P:[phone] Echocardiographic Report Patient Name: LINDA VANEGAS C [...] Site: Exam was interpreted at [facility]. Left Ventricle: Normal left ventricular systolic [...] LAB BLOOD ORDERABLES Final Result [facility] BECKI [address] [place] [address] * (ABNORMAL) Vitamin D 25 hydroxy (12/17/2024 12:00 PM CDT) Vitamin D 25-OH 27(L) 30 - 80 ng/mL Blood 12/17/2024 12:0 0 PM CDT 12/17/2024 5:27 PM CDT Narrative RAJIV CONNELL - 12/17/2024 6:24 PM CDT FAX RESULTS TO [phone] NISA RABAGO Nisa Rabago MD LAB B[place] [address] [address] Department [facility] [place] [address] * Lipid panel (12/17/2024 12:00 [...] Rabago MD LAB BLOOD ORDERABLES Final Result [facility] [address] Department [place] [address] * Comprehensive metabolic panel (12/17/2024 [...] BLOOD ORDERABLES Final Result Performing Organization Address City/State/[facility] Co de Phone Number [facility] [address] Department [place] [address] * US Arterial Doppler Lower Extremity Bilateral (12/10/2024 1:15 PM CDT) Anatomical Region Laterality Modality Vascular Bilateral Ultrasound 12/10/2024 12:2 5 PM CDT Narrative 12/13/2024 8:30 AM CDT Vascular & Vein Surgery [address] [place] [address] Lower Extremity Arterial Doppler Report Patient Name: LINDA VANEGAS C : 1940 Study Date: 12/10/2024 12:25:00 PM Gender: F Sole Seamer: Gabriela Zuleta RVT Location: [facility] Ref Provider: BLAKE LEE Quality: Adequate Order Provider: BLAKE LEE PROCEDURES: Arterial Report: Bilateral lower extremity arterial Doppler exam at rest. INDICATIONS: Decreased pulses; bilateral foot/toes discoloration. HISTORY: HTN. HLD. Afib. COMPARISONS: No previous exams. MEASUREMENTS: Right Value Left Value Rt Brachial Pressure 198 mmHg Lt Brachial Pressure 201 mmHg Rt STATE ARCHIVIST Pressure 212 mmHg Lt STATE ARCHIVIST Pressure 152 mmHg Rt DPA Pressure 183 [...] - 12/13/2024 Vascular & Vein Surgery [address] [place] [address] Lower Extremity Arterial Doppler Report Patient Name: LINDA VANEGAS C : 1940 Study Date: 12/10/2024 12:25:00 PM Gender: F Sole Seamer: Gabriela Zuleta RVT Location: [facility] Provider: BLAKE LEE Quality: Adequate Order Provider: BLAKE LEE PROCEDURES: Arterial Report: Bilateral lower extremity arterial Doppler exam at rest. INDICATIONS: Decreased pulses; bilateral foot/toes discoloration. HISTORY: HTN. HLD. Afib. COMPARISONS: No previous exams. MEASUREMENTS: Right Value Left Value Rt Brachial Pressure 198 mmHg Lt Brachial Pressure 201 mmHg Rt STATE ARCHIVIST Pressure 212 mmHg Lt STATE ARCHIVIST Pressure 152 mmHg Rt DPA Pressure 183 [...] 7:46:33 AM CDT us Blake Lee MD [facility] US PROCEDURES Final R esult from Last 3 Months Insurance [facility] MEDICARE ADVANTAGE [facility] Address: [address] [address] [place] [address] UHC MEDICARE ADVANTAGE [facility] Address: [facility] [address] [place] [address] UHC MEDICARE ADVANTAGE [facility] Address: [address] [address] [place] [address] Advance Directives For more information, please contact: [phone] * Full Code (Latest Code Status on File) Date Activated Date Inactivated Comments 09/05/2023 8:36 AM 09/07/2023 4:49 PM * Full Code Date Activated Date Inactivated Comments 10/23/2020 8:33 PM 10/26/2020 5:31 PM Care Teams Vice President Of Marketing Relationship Specialty Start Date End Date Nisa Rabago MD [address] [place] [address] PCP - General Emergency Medicine 07/23/24 Ty Vicente MD [address] [address] Consulting Physician Nephrology 02/03/22 Alcides Srivastava Jr., MD [address] [address] Referring Physician Cardiology 12/04/21 Andrew Koehler MD [address] [place] [address] Consulting Physician Otolaryngology 03/06/22 Rula Aldrich DO [address] [address] Consulting Physician Neurology 09/07/23 Conner Ybarra MD [address] [place] [address] Referring Physician Neurology 02/21/24
[2025-02-09 12:33] LABS: Troponin I < 0.012 ng/mL (0.000-0.034)
--- NOTE | 2025-02-09 13:26 | ED_ITS ---
HPI - Arrhythmia/Palpitations General Chief Complaint: Arrhythmia/Palpitations Stated Complaint: palpitations Time Seen by Provider: 02/09/25 12:04 History of Present Illness HPI narrative: Patient is an 84-year-old female who presents ER after waking up having palpitations in her chest. Symptoms began 2 days ago. No exertional shortness of breath or chest pain. No swelling in her legs. She has history of atrial fibrillation but has never been able to tell when she is in it and thinks she is in it now. She has not called her registered mail clerk. She has continued to take her rate control medications. In fevers or chills or sweats. No other medication changes. Related Data Home Medications ?Medication ?Instructions ?Recorded ?Confirmed ?Last Taken ?Type ascorbic acid (vitamin C) 100 mg 100 mg PO DAILY 11/09/21 12/24/24 09/07/22 08:00 History tablet hydrochlorothiazide 25 mg tablet 25 mg PO BID 09/07/22 12/24/24 09/07/22 08:00 History clonidine HCl 0.1 mg tablet 0.1 mg PO BID PRN 06/25/24 12/24/24 Unknown History cholecalciferol (vitamin D3) 50 50 mcg PO DAILY 12/24/24 12/24/24 Unknown History mcg (2,000 unit) capsule omeprazole 20 mg capsule,delayed 20 mg PO DAILY 12/24/24 12/24/24 Unknown History release Allergies Allergy/AdvReac Type Severity Reaction Status Date / Time No Known Allergies Allergy Verified 02/09/25 10:33 Review of Systems 2 Review of Systems: All systems reviewed & are unremarkable except as noted in HPI and below Constitutional: Constitutional: Reports no additional constitutional complaints Cardiovascular: Cardiovascular: Reports no additional cardiovascular complaints Respiratory: Respiratory: Reports no additional respiratory complaints Gastrointestinal: Gastrointestinal: Reports no additional gastrointestinal complaints [facility] Past Medical History Medical History Hematuria Acute on chronic renal insufficiency Acute UTI CTS (carpal tunnel syndrome) Vaccination not carried out because of patient refusal Aortic valve stenosis Peripheral arterial occlusive disease Renal artery stenosis Iliac artery aneurysm, left JOHN (generalized anxiety disorder) Chronic anticoagulation Seasonal allergic rhinitis Acute left-sided low back pain with sciatica Vitamin deficiency URI, acute Primary osteoarthritis of left knee PND (post-nasal drip) OAB (overactive bladder) Nonrheumatic aortic valve stenosis Hypertensive kidney disease HH (hiatus hernia) Functional thyroid nodule Elevated fasting glucose Dysuria Diastolic dysfunction Bilateral carotid bruits Acute pain of left knee Osteopenia Vaginal delivery x3 Goiter Anxiety Chronic kidney disease (CKD) stage G1/A2, glomerular filtration rate (GFR) equal to or greater than 90 mL/min/1.73 square meter and albuminuria creatinine ratio between 30-299 mg/g SAUMYA (obstructive sleep apnea) Hyperlipidemia Atrial fibrillation Personal history of colonic polyps Hypertension Surgical History Surgical History H/O cataract extraction History of tonsillectomy H/O thyroidectomy 1989, left side Family History Family History Father Malignant neoplasm of prostate Mother Family history of lung cancer Family history of chronic obstructive pulmonary disease Grandparent LEANDRO (acute kidney injury) Social History Social History Social History: The patient lives alone. She has 3 children. She is . 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 The patient does not have a durable power traffic law attorney. Lifelong nonsmoker. Code status full code Smoking status: Never smoker Alcohol intake: never Substance use: never Do You Feel Safe in your Home?: Yes Lack of Transportation: No Lack of Food: Never True Current Housing: Decline to Answer Concerned About Future Housing: Decline to Answer Difficulty Paying Gas/Electric Bills: Decline to Answer Difficulty Paying for Meds: Decline to Answer Currently Unemployed: Decline to Answer Education: Decline to Answer Difficulty w/ Childcare or Family Care: Decline to Answer Living arrangements: alone Gender identity (if verbalized by the patient): Female Spiritual care concerns: No Agree to blood products: Yes Exam 2 Narrative: GENERAL: Well-appearing, well-nourished, and in no acute distress. HEAD: Normocephalic, atraumatic. ENT: Mucous membranes moist. CHEST: Clear to auscultation. No respiratory distress. HEART: Irregularly irregular rate and rhythm. Normal peripheral pulses. ABDOMEN: Soft, nontender, nondistended. EXTREMITIES: Normal range of motion. No edema. SKIN: Warm, dry, no rash. NEURO: Alert and oriented x3. PSYCH: Normal mood and affect. Course Course Emergency Course: Discussed with Isabel Mccarthy NP with the heart care group. They will contact patient and possibly schedule an outpatient cardioversion. Patient has been educated on the treatment plan. Labs unremarkable. Heart rate remains controlled. Will not make any medication adjustments. Patient is typically in a sinus bradycardia in the do not want to go up on the carvedilol at this time. Vital Signs Vital signs: Vital Signs Temperature 97.6 F 02/09/25 10:30 Pulse Rate 73 02/09/25 10:30 Respiratory Rate 18 02/09/25 10:30 Blood Pressure 148/84 H 02/09/25 10:30 Pulse Oximetry 98 02/09/25 10:30 Oxygen Delivery Room Air 02/09/25 10:30 Temperature 97.6 F 02/09/25 10:30 Pulse Rate 80 02/09/25 13:33 Respiratory Rate 20 02/09/25 13:33 Blood Pressure 176/95 H 02/09/25 13:33 Pulse Oximetry 98 02/09/25 13:33 Oxygen Delivery Room Air 02/09/25 10:30 MDM - Arrhythmia/Palpitations Lab Data 02/09/25 12:03 02/09/25 12:03 Labs: Lab Results 02/09/25 Range/Units 12:03 WBC 7.4 (4.5-10.0) K/mm3 RBC 3.96 L (4.2-5.4) M/mm3 Hgb 11.3 L (12.0-15.0) g/dL Hct 35.4 L (37.0-47.0) % MCV 89.4 (80-100) fl MCH 28.5 (26-34) pg MCHC 31.9 L (32-36) g/dl RDW 13.5 (11.5-14.5) % Plt Count 151 (150-375) k/mm3 MPV 11.1 H (7.4-10.4) fl Immature Gran % (Auto) 0.4 (0-0.5) % Neut % (Auto) 77.3 H (45.5-73.1) % Lymph % (Auto) 12.9 L (18.3-44.2) % [place] % (Auto) 6.8 (2.6-8.5) % Eos % (Auto) 2.3 (0-4.4) % Baso % (Auto) 0.3 (0.2-1.2) % Lymph # (Auto) 0.95 (0.9-3.2) K/mm3 [place] # (Auto) 0.5 (0.1-0.6) K/mm3 Eos # (Auto) 0.2 (0-0.3) K/mm3 Baso # (Auto) 0.0 (0.0-0.1) K/mm3 Abs Immat Gran (auto) 0.03 (0.00-0.031) K/mm3 Absolute Neuts (auto) 5.7 (1.3-6.7) K/mm3 Absolute Nucleated RBC 0.000 (0.0-0.012) K/mm3 Nucleated RBC % 0.0 (0.0-0.2) % PT 17.2 H (11.1-14.7) Seconds INR 1.4 APTT 35.9 (22.3-36.8) Seconds Sodium 139 (137-145) mmol/L Potassium 4.6 (3.4-5.0) mmol/L Chloride 106 (98-107) mmol/L Carbon Dioxide 27 (22-30) mmol/L Anion Gap 6 (4-12) mmol/L BUN 23 H (7-17) mg/dL Creatinine 1.20 H (0.7-1.0) mg/dL Estim Creat Clear Calc 30 ml/min Estimated GFR 43 L (59 - ) Glucose 119 H (65-110) mg/dL Calcium 9.6 (8.4-10.2) mg/dL Magnesium 2.0 (1.6-2.3) mg/dL Total Bilirubin 0.9 (0.2-1.3) mg/dL AST 26 (14-36) U/L ALT 15 (6-35) U/L Alkaline Phosphatase 102 (38-126) U/L Troponin I < 0.012 (0.000-0.034) ng/mL Total Protein 7.0 (6.3-8.2) g/dL Albumin 3.9 (3.5-5.1) g/dL Lipase 26 (23-300) U/L Imaging Data Radiologist's impression: ITS Impressions Chest X-Ray 02/09/25 13:15 IMPRESSION: 1: NO ACUTE CARDIOPULMONARY DISEASE. ECG Data EKG #1: ECG completion date: 02/09/25 ECG completion time: 10:34 EKG Interpretation: normal rate (94), atrial fibrillation, non-specific ST changes, normal QRS, normal QT and NL axis Discharge Plan Discharge Clinical Impression: Atrial fibrillation Patient Disposition: Home Condition: Stable Instructions: Antibiotic Form, A-fib (Atrial Fibrillation) (ED) Additional Instructions: Return ER if you develop chest pain, you cannot breathe, you can not keep down food or water, you have additional concerns. Her cardiology group should be reaching out to schedule an appointment to treat your atrial fibrillation. Patient Language: Persian Prescriptions: No Action clonidine HCl 0.1 mg tablet 0.1 mg PO BID PRN Patient Comments: If BP is over 170 cholecalciferol (vitamin D3) 50 mcg (2,000 unit) capsule 50 mcg PO DAILY omeprazole 20 mg capsule,delayed release(DR/EC) 20 mg PO DAILY ascorbic acid (vitamin C) 100 mg tablet 100 mg PO DAILY acetaminophen 500 mg capsule 1,000 mg PO Q6H PRN (Reason: pain) Qty: 20 0RF hydrochlorothiazide 25 mg Tablet 25 mg PO BID Eliquis 2.5 mg tablet 2.5 mg PO BID Qty: 180 2RF hydralazine 50 mg tablet See Rx Instructions .ROUTE .COMPLEX Qty: 450 2RF Dose Instruction: TAKE 1.5 TABLETS (75 MG TOTAL) BY MOUTH 3 TIMES A DAY Rx Instructions: TAKE 1.5 TABLETS (75 MG TOTAL) BY MOUTH 3 TIMES A DAY atorvastatin 40 mg tablet See Rx Instructions .ROUTE .COMPLEX Qty: 90 2RF Dose Instruction: TAKE 1 TABLET BY MOUTH EVERY DAY Rx Instructions: TAKE 1 TABLET BY MOUTH EVERY DAY losartan 50 mg tablet See Rx Instructions .ROUTE .COMPLEX Qty: 180 2RF Dose Instruction: TAKE 1 TABLET BY MOUTH TWICE A DAY Rx Instructions: TAKE 1 TABLET BY MOUTH TWICE A DAY carvedilol 12.5 mg tablet See Rx Instructions .ROUTE .COMPLEX Qty: 180 2RF Dose Instruction: TAKE 1 TABLET BY MOUTH TWICE A DAY Rx Instructions: TAKE 1 TABLET BY MOUTH TWICE A DAY Follow-up/Referrals: Carmelo Lee MD [Physician] - 1 Week Juan Davis MD [Primary Care Provider] -
[2025-02-09 13:33] VITALS: BP 176/95; PULSE 80; RESP 20; O2SAT 98
[2025-02-09 14:43] VITALS: BP 170/80; PULSE 77; RESP 16; O2SAT 98
== END 2025-02-09 14:50 | disposition home or self-care (01) ==
PROVIDERS: Emergency Provider Emergency Medicine; PCP Emergency Medicine
DX: I48.91 Unspecified atrial fibrillation (principal); K21.9 Gastro-esophageal reflux disease without esophagitis; Z79.01 Long term (current) use of anticoagulants; I12.9 Hypertensive chronic kidney disease with stage 1 through stage 4 chronic kidney disease, or unspecified chronic kidney disease; N18.9 Chronic kidney disease, unspecified; E78.5 Hyperlipidemia, unspecified; G47.30 Sleep apnea, unspecified; F41.9 Anxiety disorder, unspecified
CPT/HCPCS: 36415; 71046; 80053; 83690; 83735; 84484; 85025; 85610; 85730; 93005; 99284